=== PATIENT | female | born 1995 | race Caucasian/White ===

== ENCOUNTER 2021-02-20 14:12 | Emergency (ER) | payer OTHER, SELFPAY ==
[2021-02-20 14:38] VITALS: BP 120/81; PULSE 60; RESP 18; TEMP 36.8; O2SAT 99
--- NOTE | 2021-02-20 14:56 | ED.URI ---
HPI - URI/Sore Throat General Stated Complaint: vomiting Time Seen by Provider: 02/20/21 14:49 Source: patient and RN notes reviewed Mode of arrival: ambulatory Limitations: no limitations History of Present Illness HPI Narrative: 25-year-old female with history of type 1 diabetes presents with concern for 1 day history of sore throat, general malaise, body ache, chills, fever, cough, nausea, vomiting. Her is also sick. She has not been vaccinated for Covid. She denies shortness of breath, decreased urine output. She reports her blood sugars have been slightly elevated, she is continue to monitor them. MD elicited complaint: sore throat Related Data Home Medications Medication Instructions Recorded Confirmed desogestrel-ethinyl estradiol tablet 02/20/21 [Apri] insulin lispro 02/20/21 insulin lispro [Humalog U-100 02/20/21 Insulin] Allergies Allergy/AdvReac Type Severity Reaction Status Date / Time No Known Allergies Allergy Unverified 07/30/17 13:53 Review of Systems Review of Systems: Narrative: CONSTITUTIONAL: Reports malaise, chills, sweats, fever. EYES: Denies visual changes, redness, or discharge. ENT: Reports rhinorrhea, congestion. Denies sinus pain, otalgia. Denies reports sore throat. CARDIOVASCULAR: Denies chest pain, palpitations, or edema. RESPIRATORY: Reports cough. Denies dyspnea. GASTROINTESTINAL: Denies abdominal pain, diarrhea, bloody, or mucous stools.. Reports nausea, vomiting, SKIN: Denies rash or itching. MUSCULOSKELETAL: Reports myalgia. NEUROLOGIC: Reports headache. All systems reviewed & are unremarkable except as noted in HPI and below PMFSH Comments At time of signature, agree with nursing past medical, surgical, social and family history. There is no relevant family history pertinent to the presenting complaint Exam Narrative: Exam Narrative: GENERAL: Well-appearing, well-nourished, and in no acute distress. HEAD: Normocephalic EYES: PERRLA, conjunctivae clear ENT: Nares clear. Mucous membranes moist. TM pearly schmidt with dull light reflex bilaterally; no tragal tenderness. Oropharynx erythematous without lesions. Tonsils enlarged and without exudate, no drooling, no hoarseness, no trismus, uvula midline. NECK: Supple. No lymphadenopathy CHEST: Clear to auscultation, breath sounds equal. No wheezing, rhonchi, rales, or stridor. No respiratory distress, speaks in full sentences. HEART: Regular rate and rhythm. No murmur heard. SKIN: Warm, dry, no rash. NEURO: Alert and oriented x3. PSYCH: Normal mood and affect Course Course Emergency Course: Patient is aware of diagnosis, understands and agrees to treatment plan. Anticipatory guidance given. Patient agrees to follow-up as directed and is aware of reasons to seek care at the emergency department. Portions of this record may have been created with voice recognition software Vital Signs Vital signs: Vital Signs Temperature 98.3 F 02/20/21 14:38 Pulse Rate 60 02/20/21 14:38 Respiratory Rate 18 02/20/21 14:38 Blood Pressure 120/81 02/20/21 14:38 Pulse Oximetry 99 02/20/21 14:38 Temperature 98.3 F 02/20/21 14:38 Pulse Rate 60 02/20/21 14:38 Respiratory Rate 18 02/20/21 14:38 Blood Pressure 120/81 02/20/21 14:38 Pulse Oximetry 99 02/20/21 14:38 Reviewed. MDM - URI/Sore Throat MDM Narrative Medical decision making narrative: Differential diagnosis considered: Roberts virus, strep pharyngitis, allergic rhinitis, upper respiratory tract infection, sinusitis, rhinosinusitis, nasopharyngitis. viral pharyngitis, otitis media, otitis externa, pneumonia, bronchitis, viral cough syndrome, viral syndrome, and influenza. Exam findings show no acute concerns or changes; patient is non-toxic appearing and is in no distress. Patient is appropriate for outpatient treatment and follow-up. Lab Data Labs: Strep Screen Presumptive Negative
== END 2021-02-20 15:08 | disposition home or self-care (01) ==
PROVIDERS: Emergency Provider Nurse Practitioner
DX: U07.1 COVID-19 (principal); E10.9 Type 1 diabetes mellitus without complications
CPT/HCPCS: 87081; 87426; 87880; 99213; C9803; G0463

== ENCOUNTER 2021-03-01 14:18 | Emergency (ER) | payer OTHER, SELFPAY ==
[2021-03-01 14:28] VITALS: BP 113/84; PULSE 114; RESP 20; TEMP 36.1; O2SAT 98
--- NOTE | 2021-03-01 14:38 | ED.URI ---
HPI - URI/Sore Throat General Chief Complaint: Upper Respiratory Infection Stated Complaint: retested for covid Time Seen by Provider: 03/01/21 14:38 Source: patient Mode of arrival: ambulatory Limitations: no limitations History of Present Illness HPI Narrative: Mary Fernandez is a 25 yo female with a PMH of diabetes who comes to [facility] for retesting so she go back to work. She has not completed her 10-day quarantine although she states she feels much better and was seen on on the [address] [place] [address] for reported pneumonia for which she was only given a Z-Lobito and no other medication Related Data Home Medications Medication Instructions Recorded Confirmed desogestrel-ethinyl estradiol 1 tablet PO DAILY 02/20/21 03/01/21 [Apri] insulin lispro [Humalog U-100 10 - 20 unit SUBCUT TIDWM 02/20/21 03/01/21 Insulin] Allergies Allergy/AdvReac Type Severity Reaction Status Date / Time No Known Allergies Allergy Verified 03/01/21 14:33 Review of Systems Review of Systems: CONSTITUTIONAL: Denies fever, chills, sweats. EYES: Denies visual changes, redness, discharge. ENT: Denies rhinorrhea, congestion, sore throat, otalgia. CARDIOVASCULAR: Denies chest pain, palpitations, edema. RESPIRATORY: Denies dyspnea, wheezing, cough GASTROINTESTINAL: Denies abdominal pain, nausea, vomiting, diarrhea. GENITOURINARY: Denies dysuria, hematuria, abnormal discharge SKIN: Denies rash or itching. NEUROLOGIC: Denies numbness, or focal weakness. PSYCHIATRIC: Denies anxiety or depression. Wanting a negative Covid test fever PMFSH Past Medical History Medical History Diabetes mellitus Social History Social History Tobacco type: e-cigarettes/vaping Comments At time of signature, I agree with nursing past medical, surgical, social and family history. There is no relevant family history pertinent to the presenting complaint. Exam Narrative: GENERAL: This is a well-nourished, well-developed patient, in no distress. HEAD: normocephalic, atraumatic. EYES: Sclera clear/white. Vision is grossly intact. EARS: External ears normal, auditory canals clear and without drainage, TMs normal without perforation. Hearing grossly intact. NOSE: External nose normal without nasal discharge, nares without redness, no rhinorrhea. THROAT: Mucous membranes moist, NECK: Neck supple, non-tender CARDIOVASCULAR: Regular rate and rhythm without murmurs, gallops, or rubs. RESPIRATORY: Clear to auscultation. Breath sounds equal bilaterally. No wheezes, rales, or rhonchi. GASTROINTESTINAL: Abdomen soft, , SKIN: warm, intact with no suspicious lesions or rash, good texture and turgor. NEURO: awake, alert, and oriented to person, place and time. There were no obvious focal neurologic abnormalities. Steady gait EXTREMITIES: Normal range of motion. BACK: Nontender without deformity Course Course Emergency Course: Patient was seen and on the at the hospital for pneumonia She is here for negative Covid test which we do not perform but we will get her scheduled with outpatient testing on Thursday; patient given a copy of her 02/20+ past Vital Signs Vital signs: Vital Signs Temperature 97.0 F L 03/01/21 14:28 Pulse Rate 114 H 03/01/21 14:28 Respiratory Rate 20 03/01/21 14:28 Blood Pressure 113/84 03/01/21 14:28 Pulse Oximetry 98 03/01/21 14:28 Temperature 97.0 F L 03/01/21 14:28 Pulse Rate 114 H 03/01/21 14:28 Respiratory Rate 20 03/01/21 14:28 Blood Pressure 113/84 03/01/21 14:28 Pulse Oximetry 98 03/01/21 14:28 MDM - URI/Sore Throat Differential Diagnosis Differential diagnosis: Likely upper respiratory infection, sinusitis, viral infection, bronchitis, pharyngitis and other Critical Care Time Critical Care Time Critical Care Time: No Discharge Plan Discharge Clinical I
== END 2021-03-01 15:05 | disposition home or self-care (01) ==
PROVIDERS: Emergency Provider Nurse Practitioner
DX: U07.1 COVID-19 (principal); F17.200 Nicotine dependence, unspecified, uncomplicated; E10.9 Type 1 diabetes mellitus without complications
CPT/HCPCS: 99211; G0463

== ENCOUNTER 2021-11-27 16:10 | Emergency (ER) | payer OTHER, SELFPAY ==
[2021-11-27 16:36] VITALS: BP 121/77; PULSE 106; RESP 18; TEMP 36.4; O2SAT 99
--- NOTE | 2021-11-27 16:37 | ED.NAVMDI ---
HPI - Nausea/Vomiting/Diarrhea General Chief complaint: Nausea/Vomiting/Diarrhea Stated complaint: Diarrhea,Upset Stomach, Lt Lower Back Pain Time Seen by Provider: 11/27/21 16:37 Source: patient Mode of arrival: ambulatory Limitations: no limitations History of Present Illness HPI Narrative: Mary Fernandez is a 26 yo female with a PMH of T1 DM, [facility] with complaints of abdominal cramping for couple of weeks she is having bowel movements for 5 times a day and has lower back left-sided pain no nausea vomiting no urinary tract symptoms, no fever. Patient has a insulin pump and glucometer states her blood sugar runs between 60 and 200. No nausea vomiting, symptoms occur after eating Related Data Home Medications Medication Instructions Recorded Confirmed insulin lispro [Humalog U-100 10 - 20 unit SUBCUT TIDWM 02/20/21 11/27/21 Insulin] blood sugar diagnostic [OneTouch 11/27/21 11/27/21 Verio test strips] blood-glucose sensor [Dexcom G6 11/27/21 11/27/21 Sensor] blood-glucose transmitter [Dexcom 11/27/21 11/27/21 G6 Transmitter] Allergies Allergy/AdvReac Type Severity Reaction Status Date / Time No Known Allergies Allergy Verified 11/27/21 16:50 Review of Systems Review of Systems: CONSTITUTIONAL: Denies fever, chills, sweats. EYES: Denies visual changes, redness, discharge. ENT: Denies rhinorrhea, congestion, sore throat, otalgia. CARDIOVASCULAR: Denies chest pain, palpitations, edema. RESPIRATORY: Denies dyspnea, wheezing, cough GASTROINTESTINAL: Denies abdominal pain, nausea, vomiting, diarrhea. Is having 4-5 stools a day with cramping occur usually after eating GENITOURINARY: Denies dysuria, hematuria, abnormal discharge SKIN: Denies rash or itching. NEUROLOGIC: Denies numbness, or focal weakness. PSYCHIATRIC: Denies anxiety or depression. COUNTS INCLUDE 234 BEDS AT THE [facility] Past Medical History Medical History Type 1 diabetes Social History Social History Tobacco type: e-cigarettes/vaping Comments At time of signature, I agree with nursing past medical, surgical, social and family history. There is no relevant family history pertinent to the presenting complaint. Exam Narrative: GENERAL: This is a well-nourished, well-developed patient, in mild distress. HEAD: normocephalic, atraumatic. EYES: Sclera clear/white. Vision is grossly intact. EARS: External ears normal, . Hearing grossly intact. NOSE: External nose normal without nasal discharge, nares without redness, no rhinorrhea. THROAT: Mucous membranes moist, NECK: Neck supple, non-tender CARDIOVASCULAR: Tachycardia rate and rhythm without murmurs, gallops, or rubs. RESPIRATORY: Clear to auscultation. Breath sounds equal bilaterally. No wheezes, rales, or rhonchi. GASTROINTESTINAL: Abdomen soft, feels pressure but denies tenderness, bowel sounds normoactive SKIN: warm, intact with no suspicious lesions or rash, good texture and turgor. NEURO: awake, alert, and oriented to person, place and time. There were no obvious focal neurologic abnormalities. Steady gait EXTREMITIES: Normal range of motion. BACK: Nontender without deformity Course Course Emergency Course: Patient has been having cramping and 4-5 stools a day for the last couple of weeks denies nausea vomiting are diarrhea per se the stooling occurs after she eats about 15 to 30 minutes later sometimes her symptoms improve after a bowel movement. She is a type I diabetic and on a insulin pump does have a primary care physician Discussed possibility of developing IBS or colitis and needs blood work patient to start on a bland diet and follow-up with fat pressroom worker or primary care physician in the morning encouraged to drink fluids Level of Care: Express Care Visit Vital Signs Vital signs: Vital Signs Temperature 97.5 F L 11/27/21 16:36 Pulse Rate 106 H 11/27/21 16:36 Respi
== END 2021-11-27 17:53 | disposition home or self-care (01) ==
PROVIDERS: Emergency Provider Nurse Practitioner; PCP Orthopaedic Surgery
DX: R10.9 Unspecified abdominal pain (principal); R19.4 Change in bowel habit; E10.9 Type 1 diabetes mellitus without complications; F17.200 Nicotine dependence, unspecified, uncomplicated
CPT/HCPCS: 99213; G0463

== ENCOUNTER 2022-12-01 12:18 | Emergency (ER) | payer MEDICARE, MEDICAID, SELFPAY ==
--- NOTE | 2022-12-01 12:23 | ED.URI ---
HPI - URI/Sore Throat General Chief Complaint: Upper Respiratory Infection Stated Complaint: Sore Throat Time Seen by Provider: 12/01/22 12:23 Source: patient and RN notes reviewed History of Present Illness HPI Narrative: Patient is a 27-year-old female who presents to urgent care with complaints of a sore throat that started yesterday. Patient has been taking Tylenol. Denies any other upper respiratory complaints, fever, nausea or vomiting. No acute distress noted. Patient aware of the plan Of care. Some parts of this dictation were generated by voice recognition software and may contain typographical and/or grammatical inaccuracies. Related Data Home Medications Medication Instructions Recorded Confirmed insulin lispro 100 unit/mL 10 - 20 unit subcut TIDWM 02/20/21 11/27/21 subcutaneous solution (Humalog U-100 Insulin) blood sugar diagnostic (OneTouch 11/27/21 11/27/21 Verio test strips) blood-glucose sensor (Dexcom G6 11/27/21 11/27/21 Sensor device) blood-glucose transmitter (Dexcom 11/27/21 11/27/21 G6 Transmitter device) Allergies Allergy/AdvReac Type Severity Reaction Status Date / Time No Known Allergies Allergy Verified 11/27/21 16:50 Review of Systems Review of Systems: CONSTITUTIONAL: Denies fever, chills, or sweats. EYES: Denies visual changes, redness, or discharge. ENT: Denies rhinorrhea, congestion, otalgia. Reports of sore throat CARDIOVASCULAR: Denies chest pain, palpitations, or edema. RESPIRATORY: Denies cough or dyspnea. GASTROINTESTINAL: Denies abdominal pain, nausea, vomiting, or diarrhea. GENITOURINARY: Denies dysuria or hematuria. SKIN: Denies rash or itching. MUSCULOSKELETAL: Denies back pain, joint pain, or myalgia. NEUROLOGIC: Denies headache, numbness, or weakness. All other systems reviewed are negative, except as documented in HPI. [facility] Past Medical History Medical History Type 1 diabetes Social History Social History Tobacco type: e-cigarettes/vaping Comments At the time of my signature, I reviewed and agree with the nursing past medical, surgical, social, and family history. There is no relevant family history pertinent to the patient complaint. Exam Narrative: GENERAL: This is a well-nourished, well-developed patient, in no apparent distress. HEAD: normocephalic, atraumatic. EYES: PERRL. Sclera clear/white. Vision is grossly intact. EARS: External ears normal, auditory canals clear and without drainage, TMs normal without perforation. Hearing grossly intact. NOSE: External nose normal with no obvious nasal discharge, nares without redness, no rhinorrhea. THROAT: Mucous membranes moist, mild erythema to posterior pharynx with moderate postnasal drainage NECK: Neck supple RESPIRATORY: Clear to auscultation. Breath sounds equal bilaterally. No wheezes, rales, or rhonchi. SKIN: warm, intact with no suspicious lesions or rash, good texture and turgor. NEURO: awake, alert, and oriented to person, place and time. There were no obvious focal neurologic abnormalities. EXTREMITIES: No clubbing, cyanosis, or edema. Course Course Level of Care: Express Care Visit Vital Signs Vital signs: Vital Signs Temperature 97.3 F L 12/01/22 12:34 Pulse Rate 106 H 12/01/22 12:34 Respiratory Rate 16 12/01/22 12:34 Blood Pressure 118/70 12/01/22 12:34 Pulse Oximetry 100 12/01/22 12:34 Oxygen Delivery Room Air 12/01/22 12:34 Temperature 97.3 F L 12/01/22 12:34 Pulse Rate 106 H 12/01/22 12:34 Respiratory Rate 16 12/01/22 12:34 Blood Pressure 118/70 12/01/22 12:34 Pulse Oximetry 100 12/01/22 12:34 Oxygen Delivery Room Air 12/01/22 12:34 Reviewed MDM - URI/Sore Throat MDM Narrative Medical decision making narrative: Reviewed lab results with the patient. She is aware that strep swab was negative.
[2022-12-01 12:34] VITALS: BP 118/70; PULSE 106; RESP 16; TEMP 36.3; O2SAT 100
== END 2022-12-01 12:52 | disposition home or self-care (01) ==
PROVIDERS: Emergency Provider Nurse Practitioner Family; PCP Family Medicine
DX: J02.9 Acute pharyngitis, unspecified (principal); E10.9 Type 1 diabetes mellitus without complications; F17.290 Nicotine dependence, other tobacco product, uncomplicated
CPT/HCPCS: 87081; 87880; 99213; G0463

== ENCOUNTER 2023-05-14 15:15 | Emergency (ER) | payer MEDICARE, MEDICAID, SELFPAY ==
[2023-05-14 15:26] VITALS: BP 119/68; PULSE 102; RESP 20; TEMP 36.8; O2SAT 96
--- NOTE | 2023-05-14 15:40 | ED.SKABFB ---
HPI - Skin/Abscess/Foreign Bdy General Chief complaint: Skin/Abscess/Foreign Body Stated complaint: poss infection pump sight left arm Source: patient and RN notes reviewed History of Present Illness HPI narrative: 28-year-old presents urgent care with complaints of redness and tenderness to left upper arm. Patient states 2 days ago she placed her insulin pump in this area and 24 hours later removed it b/c it was tender. Denies any fevers, chills vomiting, chest pain, or shortness of breath. Related Data Home Medications Medication Instructions Recorded Confirmed blood sugar diagnostic (OneTouch 11/27/21 11/27/21 Verio test strips) blood-glucose sensor (Dexcom G6 11/27/21 11/27/21 Sensor device) blood-glucose transmitter (Dexcom 11/27/21 11/27/21 G6 Transmitter device) desogestrel 0.15 mg-ethinyl 1 tablet PO DAILY 05/14/23 05/14/23 estradiol 0.03 mg tablet (Apri) Allergies Allergy/AdvReac Type Severity Reaction Status Date / Time No Known Allergies Allergy Verified 11/27/21 16:50 Review of Systems Review of Systems: Pertinent positives and pertinent negatives per HPI. [facility] Past Medical History Medical History Type 1 diabetes Social History Social History Tobacco type: e-cigarettes/vaping Comments At the time of my signature, I reviewed and agree with the nursing past medical, surgical, social, and family history. There is no relevant family history pertinent to the patient complaint. Exam Narrative: GENERAL: This is a well-nourished, well-developed patient, in no apparent distress. HEAD: normocephalic, atraumatic. EYES: Sclera clear/white. Vision is grossly intact. EARS: External ears normal, auditory canals clear and without drainage. Hearing grossly intact. NOSE: External nose normal with no obvious nasal discharge, nares without redness, no rhinorrhea. THROAT: Mucous membranes moist, posterior pharynx clear. NECK: Neck supple, non-tender without lymphadenopathy, masses or thyromegaly. CARDIOVASCULAR: Regular rate and rhythm without murmurs, gallops, or rubs. RESPIRATORY: Clear to auscultation. Breath sounds equal bilaterally. No wheezes, rales, or rhonchi. GASTROINTESTINAL: Abdomen soft, non-tender, nondistended. Bowel sounds are active. No hepato-splenomegaly, or palpable masses. No guarding. SKIN: 5 cm x 5cm area of erythema to left upper arm with centralized pustule. no area of induration or drainage noted. NEURO: awake, alert, and oriented to person, place and time. There were no obvious focal neurologic abnormalities. EXTREMITIES: No clubbing, cyanosis, or edema. No joint tenderness, effusion, or edema noted. BACK: Nontender without deformity or crepitus. No flank tenderness. Course Course Level of Care: Express Care Visit Vital Signs Vital signs: Vital Signs Temperature 98.3 F 05/14/23 15:26 Pulse Rate 102 H 05/14/23 15:26 Respiratory Rate 20 05/14/23 15:26 Blood Pressure 119/68 05/14/23 15:26 Pulse Oximetry 96 05/14/23 15:26 Oxygen Delivery Room Air 05/14/23 15:26 Temperature 98.3 F 05/14/23 15:26 Pulse Rate 102 H 05/14/23 15:26 Respiratory Rate 20 05/14/23 15:26 Blood Pressure 119/68 05/14/23 15:26 Pulse Oximetry 96 05/14/23 15:26 Oxygen Delivery Room Air 05/14/23 15:26 Reviewed MDM - Skin/Abscess/Foreign Bdy MDM Narrative Medical decision making narrative: Clean with soap and water only; Avoid using alcohol and peroxide. Elevate the affected area if possible Alternate Tylenol/ibuprofen for as needed for pain Acetaminophen(Tylenol) 650-1000mg every 4-6hours with max of 4000mg/day. Nonsteroidal anti-inflammatory agent (NSAIDs-ibuprofen): 400mg every 4-6hours with max 2400mg/day Take antibiotic until it's gone. Please schedule a follow up visit with your personal physician for further evaluation and treatment
== END 2023-05-14 15:52 | disposition home or self-care (01) ==
PROVIDERS: Emergency Provider Nurse Practitioner Family; PCP Family Medicine
DX: L03.114 Cellulitis of left upper limb (principal); E10.9 Type 1 diabetes mellitus without complications; F17.290 Nicotine dependence, other tobacco product, uncomplicated
CPT/HCPCS: 99213; G0463

== ENCOUNTER 2023-06-17 12:06 | Emergency (ER) | payer MEDICARE, MEDICAID, SELFPAY ==
--- NOTE | ~2023-06-17 | XR_ITS ---
EXAMINATION: XR chest 2V DATE: 06/17/2023 12:30 INDICATION: Shortness of breath. Decreased breath sounds. TECHNIQUE: Frontal and lateral views of the chest were obtained. COMPARISON: Chest single view 02/21/2021 FINDINGS: There is no pneumonia, pleural effusion, or pneumothorax. The heart size is normal. IMPRESSION: 1. No acute cardiopulmonary disease. Reviewed, dictated and finalized at location A. DISTRIBUTOR
[2023-06-17 12:09] VITALS: BP 125/74; PULSE 100; RESP 18; TEMP 36.4; O2SAT 98
--- NOTE | 2023-06-17 12:16 | ED.URI ---
HPI - URI/Sore Throat General Chief Complaint: Upper Respiratory Infection Stated Complaint: Chest Pain Time Seen by Provider: 06/17/23 12:20 Source: patient, RN notes reviewed and old records reviewed Mode of arrival: ambulatory Limitations: no limitations History of Present Illness HPI Narrative: 28 year old female who presents to express care with complaints of having some chest discomfort and feels like it is hard to take a deep breath and has been coughing up yellow mucous since this morning, states little wheezing noted.. Patient reports discomfort is across her chest with no nausea, diaphoresis or any radiation of her discomfort.Patient reports some head congestion and headache.Patient has even nonlabored respirations with no tachypnea or retractions, SAO2 98% on room air. Patient voices past history of pneumonia after having COVID. MD elicited complaint: cough (productive), nasal congestion and other (headache) Pertinent past history: pneumonia Onset (ago): hour(s) (this morning) Pain scale (0-10): 3 Description of mucous: yellow Able to tolerate fluids by mouth: Yes Treatments prior to arrival: none Related Data Home Medications Medication Instructions Recorded Confirmed blood sugar diagnostic (OneTouch 11/27/21 11/27/21 Verio test strips) blood-glucose sensor (Dexcom G6 11/27/21 11/27/21 Sensor device) blood-glucose transmitter (Dexcom 11/27/21 11/27/21 G6 Transmitter device) desogestrel 0.15 mg-ethinyl 1 tablet PO DAILY 05/14/23 06/17/23 estradiol 0.03 mg tablet (Apri) insulin lispro 100 unit/mL See Rx Instructions .Route .COMPLEX 06/17/23 06/17/23 subcutaneous solution Allergies Allergy/AdvReac Type Severity Reaction Status Date / Time No Known Allergies Allergy Verified 06/17/23 12:24 Review of Systems Review of Systems: CONSTITUTIONAL: Denies fever, chills, or sweats. EYES: Denies visual changes, redness, or discharge. ENT: Denies rhinorrhea, congestion, sore throat, or otalgia. CARDIOVASCULAR: Reports chest pain and some difficulty taking deep breaths, no palpitations, or edema. RESPIRATORY: Reports cough and dyspnea. GASTROINTESTINAL: Denies abdominal pain, nausea, vomiting, or diarrhea. GENITOURINARY: Denies dysuria or hematuria. SKIN: Denies rash or itching. MUSCULOSKELETAL: Denies back pain, joint pain, or myalgia. NEUROLOGIC: Denies headache, numbness, or weakness. PSYCHIATRIC: Denies anxiety or depression. All systems reviewed & are unremarkable except as noted in HPI and below PMFSH Past Medical History Medical History (Updated 06/18/23 @ 09:41 by Eboni Yeboah NP) COVID-19 2020 GERD (gastroesophageal reflux disease) Pneumonia Type 1 diabetes Surgical History Surgical History (Updated 06/18/23 @ 09:42 by Eboni Yeboah NP) History of placement of ear tubes History of tonsillectomy and adenoidectomy Social History Social History (Updated 06/18/23 @ 09:43 by Eboni Yeboah NP) Tobacco type: e-cigarettes/vaping Alcohol intake: unknown Substance use: unknown Gender identity (if verbalized by the patient): Female Comments At time of signature, agree with nursing past medical, surgical, social and family history. There is no relevant family history pertinent to the presenting complaint Exam Narrative: GENERAL: Well-appearing, well-nourished, and in no acute distress. HEAD: Normocephalic, atraumatic. EYES: PERRLA and EOMI. ENT: Nares clear, no rhinorrhea or epistaxis. Mucous membranes moist.RM's normal, throat pink no swelling tonsils absent NECK: Supple. no lymphadenopathy CHEST: Decreased to auscultation. No respiratory distress. productive cough, reports chest pain tightness with cough, SAO2 98% no tachypnea or any retractions. HEART: Regular rate and rhythm. No murmur heard. Normal peripheral pulses. ABDOMEN: Soft, nontender, nondistended, normal active bowel sounds. EXTREMITIES: Normal range of motion. No edema. SKIN: Warm, dry, no
== END 2023-06-17 13:10 | disposition home or self-care (01) ==
PROVIDERS: Emergency Provider Registered Nurse; PCP Family Medicine
DX: J06.9 Acute upper respiratory infection, unspecified (principal); R05.1 Acute cough; E10.9 Type 1 diabetes mellitus without complications; F17.290 Nicotine dependence, other tobacco product, uncomplicated; Z79.4 Long term (current) use of insulin; Z79.899 Other long term (current) drug therapy
CPT/HCPCS: 71046; 99213; G0463

== ENCOUNTER 2023-11-29 10:34 | Emergency (ER) | payer MEDICARE, OTHER, MEDICAID, SELFPAY ==
[2023-11-29 10:40] VITALS: BP 129/74; PULSE 118; RESP 16; TEMP 36.6; O2SAT 100
--- NOTE | 2023-11-29 10:51 | ED.EYEPROB ---
HPI - Eye Problem General Chief complaint: Eye Problems Stated complaint: Eye Problem History of Present Illness HPI Narrative: tender area to top of eyelid on both eyes. no change in make up patient states she gets these often and they usually go away. this time they are painful and has tried warm compresses with no relief. Patient is 16 weeks with no related problems no vaginal discharge no vaginal bleeding no abdominal pain no pelvic pain no urinary problems normal movement Related Data Home Medications Medication Instructions Recorded Confirmed blood sugar diagnostic (OneTouch 11/27/21 11/27/21 Verio test strips) blood-glucose sensor (Dexcom G6 11/27/21 11/27/21 Sensor device) blood-glucose transmitter (Dexcom 11/27/21 11/27/21 G6 Transmitter device) Daily 11/29/23 aspirin 81 mg tablet,delayed mg 11/29/23 11/29/23 release insulin lispro 100 unit/mL 11/29/23 subcutaneous solution Allergies Allergy/AdvReac Type Severity Reaction Status Date / Time No Known Allergies Allergy Verified 06/17/23 12:24 Review of Systems Review of Systems: CONSTITUTIONAL: Denies fever, chills, or sweats. EYES: Denies visual changes, redness, or discharge. ENT: Denies rhinorrhea, congestion, sore throat, or otalgia. CARDIOVASCULAR: Denies chest pain, palpitations, or edema. RESPIRATORY: Denies cough or dyspnea. GASTROINTESTINAL: Denies abdominal pain, nausea, vomiting, or diarrhea. GENITOURINARY: Denies dysuria or hematuria. SKIN: Denies rash or itching. MUSCULOSKELETAL: Denies back pain, joint pain, or myalgia. NEUROLOGIC: Denies headache, numbness, or weakness. PSYCHIATRIC: Denies anxiety or depression. [facility] Past Medical History Medical History (Updated 11/29/23 @ 10:56 by GRACE Bruno) COVID-19 2020 GERD (gastroesophageal reflux disease) Pneumonia Type 1 diabetes Surgical History Surgical History (Updated 06/18/23 @ 09:42 by Eboni Yeboah NP) History of placement of ear tubes History of tonsillectomy and adenoidectomy Social History Social History (Updated 06/18/23 @ 09:43 by Eboni Yeboah NP) Tobacco type: e-cigarettes/vaping Alcohol intake: unknown Substance use: unknown Gender identity (if verbalized by the patient): Female Comments At time of signature, agree with nursing past medical, surgical, social and family history. There is no relevant family history pertinent to the presenting complaint Exam Narrative: GENERAL: Well-appearing, well-nourished, and in no acute distress. HEAD: Normocephalic, atraumatic. EYES: PERRLA and EOMI. no redness to the eye, no drainage, no blurred vision. no pain of the eye with movement. swelling and redness to the edge of the eyelid. believes it is a sty.to both upper eyelids. hordeolum present, no drainable abscess, mild eyelid redness and swelling. no concern for michelle-orbital cellulitis or orbital cellulitis ENT: Nares clear, no rhinorrhea or epistaxis. Mucous membranes moist. NECK: Supple. CHEST: Clear to auscultation. No respiratory distress. HEART: Regular rate and rhythm. No murmur heard. Normal peripheral pulses. ABDOMEN: Soft, nontender, nondistended, normal active bowel sounds. EXTREMITIES: Normal range of motion. No edema. SKIN: Warm, dry, no rash. NEURO: No focal deficits. Alert and oriented x3. Ogilvie Coma Scale Eye Opening: Spontaneous 4 Praneeth Coma Scale Motor: Obeys Commands 6 Praneeth Coma Scale Verbal: Oriented 5 Ogilvie Coma Scale Total 15 Course Course Level of Care: Express Care Visit Vital Signs Vital signs: Vital Signs Temperature 36.6 C 11/29/23 10:40 Pulse Rate 118 H 11/29/23 10:40 Respiratory Rate 16 11/29/23 10:40 Blood Pressure 129/74 11/29/23 10:40 Pulse Oximetry 100 11/29/23 10:40 Oxygen Delivery Room Air 11/29/23 10:40 Temperature 36.6 C 11/29/23 10:40 Pulse Rate 118 H 11/29/23 10:40 Respiratory Rate
== END 2023-11-29 10:58 | disposition home or self-care (01) ==
PROVIDERS: Emergency Provider Nurse Practitioner Family; PCP Family Medicine
DX: O99.891 Other specified diseases and conditions complicating pregnancy (principal); H00.014 Hordeolum externum left upper eyelid; H00.011 Hordeolum externum right upper eyelid; O99.332 Smoking (tobacco) complicating pregnancy, second trimester; F17.290 Nicotine dependence, other tobacco product, uncomplicated; O99.612 Diseases of the digestive system complicating pregnancy, second trimester; K21.9 Gastro-esophageal reflux disease without esophagitis; O99.282 Endocrine, nutritional and metabolic diseases complicating pregnancy, second trimester; E10.9 Type 1 diabetes mellitus without complications; Z3A.16 16 weeks gestation of pregnancy; Z86.16 Personal history of COVID-19
CPT/HCPCS: 99213; G0463

== ENCOUNTER 2024-03-21 12:24 | Emergency (ER) | payer MEDICARE, MEDICAID, SELFPAY ==
[2024-03-21 12:35] VITALS: BP 114/60; PULSE 106; RESP 16; TEMP 36.6; O2SAT 99
--- NOTE | 2024-03-21 12:39 | ED.SKABFB ---
HPI - Skin/Abscess/Foreign Bdy General Chief complaint: Skin/Abscess/Foreign Body Stated complaint: Skin Sore Time Seen by Provider: 03/21/24 12:39 Source: patient Mode of arrival: ambulatory Limitations: no limitations History of Present Illness HPI narrative: 29-year-old female with history of type 1 diabetes presents with complaint of redness and drainage from left great toe for 2 days. 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 Unable to feel pain to left great toe. Patient reports blood sugars have been controlled. Afebrile. Ambulatory with steady gait. All systems reviewed and negative except as noted above. Related Data Home Medications Medication Instructions Recorded Confirmed blood sugar diagnostic (OneTouch 11/27/21 11/27/21 Verio test strips) blood-glucose sensor (Dexcom G6 11/27/21 11/27/21 Sensor device) blood-glucose transmitter (Dexcom 11/27/21 11/27/21 G6 Transmitter device) aspirin 81 mg tablet,delayed 81 mg PO DAILY 11/29/23 03/21/24 release insulin lispro 100 unit/mL See Rx Instructions .Route .COMPLEX 11/29/23 03/21/24 subcutaneous solution magnesium oxide 500 mg PO DAILY 03/21/24 03/21/24 vits no.126-ferrous fum tablet 03/21/24 28 mg iron-folic acid 800 mcg tablet (Classic ) sennosides 8.6 mg tablet (senna) mg 03/21/24 Allergies Allergy/AdvReac Type Severity Reaction Status Date / Time No Known Allergies Allergy Verified 06/17/23 12:24 Review of Systems Review of Systems: CONSTITUTIONAL: Denies fever, chills, or sweats. EYES: Denies visual changes, redness, or discharge. ENT: Denies rhinorrhea, congestion, sore throat, or otalgia. CARDIOVASCULAR: Denies chest pain, palpitations, or edema. RESPIRATORY: Denies cough or dyspnea. GASTROINTESTINAL: Denies abdominal pain, nausea, vomiting, or diarrhea. GENITOURINARY: Denies dysuria or hematuria. SKIN: Denies rash or itching. Reports redness, swelling, drainage to left great toe. MUSCULOSKELETAL: Denies back pain, joint pain, or myalgia. NEUROLOGIC: Denies headache, numbness, or weakness. PSYCHIATRIC: Denies anxiety or depression. All other systems reviewed are negative, except as documented in HPI. [facility] Past Medical History Medical History (Updated 03/21/24 @ 12:56 by Alysia Shaffer NP) COVID-19 2020 GERD (gastroesophageal reflux disease) Pneumonia Type 1 diabetes Surgical History Surgical History (Updated 06/18/23 @ 09:42 by Eboni Yeboah NP) History of placement of ear tubes History of tonsillectomy and adenoidectomy Social History Social History (Updated 06/18/23 @ 09:43 by Eboni Yeboah NP) Tobacco type: e-cigarettes/vaping Alcohol intake: unknown Substance use: unknown Gender identity (if verbalized by the patient): Female Comments At time of signature, agree with nursing past medical, surgical, social and family history. There is no relevant family history pertinent to the presenting complaint. Exam Narrative: GENERAL: This is a well-nourished, well-developed patient, in no apparent distress. HEAD: normocephalic, atraumatic. EYES: PERRL. Sclera clear/white. Vision is grossly intact. EARS: External ears normal NOSE: External nose normal NECK: Neck supple, non-tender without lymphadenopathy, masses or thyromegaly. CARDIOVASCULAR: Regular rate and rhythm without murmurs, gallops, or rubs. RESPIRATORY: Clear to auscultation. Breath sounds equal bilaterally. No wheezes, rales, or rhonchi. SKIN: warm, Dry, intact with no suspicious lesions or rash, good texture and turgor. Redness, warmth to medial aspect of left great toe with swelling. No drainage noted at this time. Toenail possibly ingrown. NEURO: awake, alert, and oriented to person, place and time. There were no obvious focal neurologic abnormalities. EXTREMITIES: No joint tenderness, effusion, or edema noted. Course Course Level of Care: William Doss
== END 2024-03-21 13:00 | disposition home or self-care (01) ==
PROVIDERS: Emergency Provider Nurse Practitioner Family; PCP Family Medicine
DX: L60.0 Ingrowing nail (principal); K21.9 Gastro-esophageal reflux disease without esophagitis; E10.9 Type 1 diabetes mellitus without complications; F17.290 Nicotine dependence, other tobacco product, uncomplicated; Z86.16 Personal history of COVID-19; Z79.82 Long term (current) use of aspirin
CPT/HCPCS: 99213; G0463

== ENCOUNTER 2024-10-23 09:16 | Emergency (ER) | payer OTHER, SELFPAY ==
--- OUTSIDE RECORDS SUMMARY | 2024-10-23 09:19 | XMS_ITS | Encounter Summary ---
Author Organization [facility] Address [address] [place] [address] Phone Care Team Providers Care Circulation Analyst Name Role Phone Moody Beltran MD Primary Care Provider [phone] Jai Naidu MD Unavailable [phone] Rachel Sommer MD Unavailable Reason for Visit * Reason Comments Medication Refill Encounter Details Date Type Department Care Team (Late st Contact Info) Description 04/25/2023 Refill [facility] - Endocrinology [facility]3] [address] [place] [address] Rachel Sommer MD [address] [address] Medication Refill Social History Tobacco Use Types Packs/Day Years Used Date Smoking Tobacco: Never Smokeless Tobacco: Never Alcohol Use Standard Drinks/Week Comments Yes 4 (1 standard drink = 0.6 oz pur e alcohol) once every few weeks Sexually Active Control Partners Comments Yes Oral Contraceptive Male Comments No Sex and Gender Information Value Date Recorded Sex Assigned at Not on file Legal Sex Female 7:44 PM CDT Gender Identity Not on file Sexual Orientation Not on file COVID-19 Exposure Response Date Recorded In the last 10 days, have yo u been in contact with someone who was confirmed or suspected to have Coronavirus/COVID-19? No / Unsure 04/03/2023 2:10 PM CDT documented as of this encounter Miscellaneous Notes * Telephone Encounter - Yarelis Garcia RN - 04/27/2023 8:20 AM CDT Requested Prescriptions Pending Prescriptions Disp Refills ??? OneTouch Verio Strip [Pharmacy Med Name: ONE TOUCH VERIO TEST STRIP] 300 Strip 5 Sig: TEST BLOOD GLUCOSE 4X DAILY. Next appt: 07/06/2023 documented in this encounter Plan of Treatment Upcoming Encounters Date Type Department Care Team (Latest Contact Info) Description 11/16/2024 11:15 AM CDT [facility] [address] [place] [address] Val Pemberton, [facility] [address] [place] [address] Discharge Disposition: Discharged to home or Selfcare 12/07/2024 11:30 AM CDT Office Visit [facility] - Endocrinology [facility]3] [address] [place] [address] Rachel Sommer MD [address] [id number] documented as of this encounter Visit Diagnoses Not on filedocumented in this encounter Care Teams Circulation Analyst Relationship Specialty Start Date End Date Moody Beltran MD [address] [facility] [address] [place] [address] PCP - General Family Medicine 02/13/21 Jai Naidu MD [address] [id number] Consulting Physician General Surgery 10/11/21 Rachel Sommer MD [address] [address] Consulting Physician Endocrinology 01/30/22 documented as of this encounter
--- OUTSIDE RECORDS SUMMARY | 2024-10-23 09:19 | XMS_ITS | Clinical Summary ---
Author Organization [address] Address [address] [place] [address] Care Team Providers Care Security Services Specialist Name Role Phone Moody Beltran MD Primary Care Provider [phone] Allergies Active Allergy Reactions Criticality Noted Date Comments Casein Stomach upset Low 01/12/2018 Lactose Diarrhea Low 06/01/2019 Medications blood glucose diagnostic (glucose blood) strip 1 each by Not Applicable route 9 Active LANCETS MISC 0 Active Dexcom G7 [employer] Tick[employer] misc 4 Active glucagon 1 mg kit Inject 1 mL (1 mg total) into the muscle as instructed as needed (hypoglycemia) 1 kit 1 4 Active insulin glargine 100 unit/mL (3 mL) pen for injection Inject 44 units under the skin at bedtime. For use when her pump stops working. 15 mL 3 4 Active pen needle, diabetic 33 gauge x 5/32 needle 5 INJECTIONS DAILY DIRECTED 200 each 2 4 Active insulin lispro (HumaLOG, ADMELOG) 100 unit/mL vial for injection For use in her insulin pump, She uses 150 units per day of insulin in her pump. 50 mL 4 4 Active Additional Information Patient taking differently: subcutaneous, For use in her insulin pump, She uses 150 units per day of insulin in her pump., Informant: Self, Reported on 09/13/2024 Dexcom G7 Sensor device Use with the Dexcom G7 escalator constructor to monitor blood glucose values continuously. Change every 10 days. 4 each 3 10/01/202 4 Active insulin syringe-needle U-100 (BD Insulin Syringe Ultra-Fine) 0.5 mL 31 gauge x 5/16 syringe Use to administer meal time insulin when pump is malfunctioning. 3 times per day. 100 each 3 4 Active norethindrone (MICRONOR) 0.35 mg tabletIndications : Contraception Take 1 tablet (0.35 mg total) by mouth daily 84 tablet 3 4 025 Active sertraline (ZOLOFT) 100 mg tablet Take 1.5 tablets (150 mg total) by mouth daily 45 tablet 5 4 025 Active Additional Information Patient taking differently: 200 mgoralEvery morning, Indications: Anxiety with Depression, Informant: Self, Reported on 09/13/2024 hydrOXYzine (ATARAX) 25 mg tabletIndications :anxiety Take 1 tablet (25 mg total) by mouth 3 (three) times a day as needed for itching Active acetaminophen (TYLENOL) 500 mg tabletIndications :Pain Take 2 tablets (1,000 mg total) by mouth every 6 (six) hours 30 tablet 5 Active ibuprofen (ADVIL,MOTRIN) 600 mg tabletIndications :Cramps Take 1 tablet (600 mg total) by mouth every 6 (six) hours 30 tablet 5 Active polyethylene glycol (MIRALAX) 17 gram/dose bulk powderIndications :constipation Take 17 g by mouth daily 298 g 5 Active oxyCODONE (ROXICODONE) 5 mg immediate release tabletIndications :Pain Take 1 tablet (5 mg total) by mouth every 4 (four) hours as needed for pain 10 tablet 5 Active oxyCODONE (ROXICODONE) 5 mg immediate release tabletIndications :Pain Take 1 tablet (5 mg total) by mouth every 4 (four) hours as needed for pain 5 tablet 5 Active naloxone (NARCAN) 4 mg/actuation spray,non-aerosol Administer 1 spray into affected nostril(s) as needed for opioid reversal or respiratory depression Call 911. Administer a single spray in one nostril. Repeat every 3 minutes as needed if no or minimal response. 1 each 2 5 Active Active Problems Problem Noted Date Diagnosed Date Moderate episode of recurrent major depressive d isorder 08/08/2024 Type 1 diabetes mellitus with hyperglycemia 01/2025 Unwanted fertility 07/30/2024 Overview (07/30/2024): -The patient was appropriately counseled that the risks of bilateral tubal ligation include regret, bleeding, infection, injury to surrounding organs and risk of procedure failure. Alternative methods of contraception were discussed including LARC. The patient desires to proceed with bilateral salpingectomy. - Given history of adhesive disease, patient was consented to vNOTES approach as well as laparoscopic bilateral salpingectomy. - Blood, procedure, and [place] Medicaid consents signed. Prep for case submitted Admission for sterilization 07/28/2024 Pelvic adhesions 07/28/2024 Delivery of by section 2023 Overview (04/29/2024): Chelly Fernandez is a 29 y.o. female at 37w0d who is dated by 1st trimester ultrasound and is being admitted for a scheduled repeat due to uncontrolled T1DM . Admit to L&D: Labs: CBC and T&S pending. section after labs return. FWB: Continuous monitoring. Reactive NST. ID: 3rd trimester HIV (>28 wga) pending on 04/29. GBS negative on 04/25 . RPR on admission: pending. History of genital HSV or HSV 1/2 seropositivity: No. Membrane Status: intact. Indications for UDS: none. Verbal consent obtained for UDS: Not indicated. MOF: Plans to both breast and formula feed. Urine drug screen not indicated. Patient informed of results: N/A. MOC: Undecided on contraception after counseling. Pain management: CSE to be placed in the OR. Post DVT prophylaxis: The patient has the following MAJOR risk factors none and the following MINOR risk factors BMI 30-39 and delivery. enoxaparin 40 mg daily will be ordered for VTE prophylaxis . #T1DM: uncontrolled. For OB insulin protocol. Has Dexcom in place, current regimen in problem list. To calculate regimen - look at pump data for average TDD (total basal insulin + total mealtime insulin) of insulin over past week - multiply by 0.3 for reduction - patient plans to breastfeed, multiply by 0.85 = X. Basal insulin = (X * 0.5)/24. ICR = 500/X. ISF = 1500/X. #Anx/dep: in therapy, on zoloft 100mg qD #Gallstones: confirmed on RUQ US in . Avoid fatty/fried foods as able. #Hx CS x1: for decreased movement with second stage arrest care following delivery 04/04 Overview (06/22/2024): # ID: Afebrile. No signs/symptoms of infection. # Heme: EBL 800 mL. Hemodynamically stable. Pre-op Hgb 10.5. POD1 hgb 9.0. Ordered for PO iron. # CV/Pulm: Vital signs stable, ^BP in , not meeting criteria for hypertensive disorder. BP well controlled . # GI/: Tolerating PO. Voiding spontaneously. # T1DM: Endo following-decreased basal insulin by 10% from 1.4 to 1.3 due to mild hypoglycemia. Will monitor today. For weekly Dexcom review as an outpatient. The following adjustments have been proposed: 06/22/2024 No changes - Encourage to enter carbs for meal time boluses. Work on timing boluses 15-20 minutes before meals Time Basal Insulin Carb Ratio Sensitivity Target 0000 1.1 >1.2 1:7 30 130 Problem List Checklist [x] Endo c/s for pump management while inpatient (f/u recs on 05/01) [x] Check pump data daily [] follow up plan (select 1) [x] COH7 MFM / M Faculty Office Sites - Message Bailey Hernandez that patient delivered and to be reviewed at the weekly Fellow diabetes meeting for the next 4 weeks - message sent [] Prior to discharge, all patients should have endocrinology follow up scheduled within 1 month of delivery after which they will resume routine diabetes care - needs to set up f/u visit with primary termination clerk Rachel Sommer ([facility]) # Anxiety/Depression: in therapy, on zoloft 100mg qD # Pain: Controlled with above regimen. # MOC: Declines s/p counseling. # MOF: Both formula and . Urine drug screen not indicated. Patient informed of results: N/A. # Post DVT prophylaxis: The patient has the following MAJOR risk factors none and the following MINOR risk factors BMI 30-39 and delivery. enoxaparin 40 mg daily ordered for VTE prophylaxis. # Disposition: Follow up task sent to [facility] scheduling pool. Desires discharge home today. Gallstones 01/20/2024 Overview (01/20/2024): Seen in [facility] on 12/17 with abdominal pain and RUQ US showed gallstones. We discussed avoiding fatty and fried foods to limit biliary colic. Assessment & Plan (02/06/2024 1:14 AM CDT): Seen in [facility] on 12/17 with abdominal pain and RUQ US showed gallstones. Denies pain today. Reports improving diet to avoid exacerbation. Hemorrhoids 01/20/2024 Overview (02/17/2024): Reports pain with BM. Recommend Miralax to avoid straining and topical preparation H for discomfort Add dulcolax Assessment & Plan (03/12/2024 3:19 PM CDT): Increase to Miralax BID and Senna rx sent Assessment & Plan (02/06/2024 1:14 AM CDT): Symptoms improved with miralax and topical preparation H. History of Compartment syndrome (CMS/HCC) 2023 Pre-existing type 1 diabetes mellitus during , 11/10/2023 Overview (07/25/2024): Care Dexcom Share code: [email or web address] T-connect (switched to control-IQ and sleep mode on 7 PM!) [email or web address]: [email or web address] Password: [place]![email or web address] Current settings 07/25/2024 Work on timing boluses 15-20 minutes before meals Time Basal Insulin Carb Ratio Sensitivity Target 0000 1.2 1:7 30 > 22 130 1200 1.2 > 1.4 1:7 > 1:6 30 > 22 130 Plan for weekly adjustments Assessment & Plan (03/30/2024 5:23 PM CDT): Current settings: 03/28/2024 T slim Decrease carb intake with meals to 50-60 carbs per meal Time Basal Rate ISF ICR BG Target Insulin Duration 0000 2.2>2.4 10 5.5 120 3 0300 2.4>2.6 10 6 120 3 0800 2.4>2.6 10 4.5 120 3 1100 2.6>2.8 10 3.4 120 3 1500 2.7>3.0 10 3.4 120 3 2100 2.2>2.4 10 3.6 120 3 Plan - Physician adjusting insulin dosage: MFM [x] Counseling performed [x] Diabetes education 01/19 [x] Recommend weekly review of BG/insulin data to adjust insulin dosing [x] Glucagon prescribed 01/07 [x] Referral to ophthalmology for comprehensive eye exam - per patient last exam 10/2023 [x] Baseline CMP, UPC - 01/19, 01/28. 87/5- WNL [x] A1c qTrimester - drawn 03/30 [] First trimester TSH - ordered 02/04, not drawn, will add to labs 03/30 [x] ASA starting at 12 weeks gestation [] Baseline EKG, consider maternal TTE - ordered 02/04 [x] Specialized anatomy ultrasound at 18-20 weeks [x] echocardiogram at 20-22 weeks- WNL 01/21/24 [] Serial growth scans starting at 24 weeks, ongoing [] Twice weekly testing starting at 32 weeks, scheduled [x] insulin plan by 32 weeks - no data from early , calculate per protocol [] Delivery at 37 weeks - requested to schedule CS on 04/29 Assessment & Plan (03/12/2024 3:16 PM CDT): T slim, sleep mode ON Time Basal Rate ISF ICR BG Target Insulin Duration 0000 2.0 > 2.2 10 5.5 120 3 0300 2.2 > 2.4 10 6 120 3 0800 2.4 10 4.5 120 3 1100 2.4 > 2.6 10 4 120 3 1500 2.7 10 4 120 3 2100 2.2 10 4 120 3 Plan - Physician adjusting insulin dosage: MFM [x] Counseling performed [x] Diabetes education 01/19 [x] Recommend weekly review of BG/insulin data to adjust insulin dosing [x] Glucagon prescribed 01/07 [x] Referral to ophthalmology for comprehensive eye exam - per patient last exam 10/2023 [x] Baseline CMP, UPC - 01/19, 01/28. 87/5- WNL [] A1c qTrimester - need 3rdT [] First trimester TSH - ordered 02/04 [x] ASA starting at 12 weeks gestation [] Baseline EKG, consider maternal TTE - ordered 02/04 [x] Specialized anatomy ultrasound at 18-20 weeks [x] echocardiogram at 20-22 weeks- WNL 01/21/24 [] Serial growth scans starting at 24 weeks [] Twice weekly testing starting at 32 weeks [] insulin plan by 32 weeks [] Delivery at 39 0/7-39 6/7 (36 0/7 to 38 6/7 with vascular complications or poorly controlled) Assessment & Plan (02/06/2024 1:13 AM CDT): Previously counseled Last hemoglobin A1C: 8.1% on 10/28 > 7.1% 01/19 [employer] Share code: [email or web address].[email or web address]/ [email or web address]-GVJY-[email or web address] T-connect (switched to control-IQ and sleep mode on 7 PM!) Username: [email or web address] Password: [place]![email or web address] Current settings: 02/05/2024- T slim, sleep mode Time Basal Rate ISF ICR BG Target Insulin Duration 0000 1.8 12 6>5.5 120 3 0300 1.8 12 6 120 3 0800 2.2 12 5 120 3 1100 2.4 12 4.5 120 3 1500 2.5 12 5 120 3 2100 2.0 12 5>4.5 120 3 Pre- TDD of insulin: Pre- weight: plan: Time Basal Insulin Carb Ratio Sensitivity Target Plan - Physician adjusting insulin dosage: MFM [x] Counseling performed [x] Diabetes education 01/19 [x] Recommend weekly review of BG/insulin data to adjust insulin dosing [x] Glucagon prescribed 01/07 [x] Referral to ophthalmology for comprehensive eye exam - per patient last exam 10/2023 [x] Baseline CMP, UPC - 01/19, 01/28. 87/5- WNL [] A1c qTrimester - need 3rdT [] First trimester TSH - ordered 02/04 [x] ASA starting at 12 weeks gestation [] Baseline EKG, consider maternal TTE - ordered 02/04 [x] Specialized anatomy ultrasound at 18-20 weeks [x] echocardiogram at 20-22 weeks- WNL 01/21/24 [] Serial growth scans starting at 24 weeks [] Twice weekly testing starting at 32 weeks [] insulin plan by 32 weeks [] Delivery at 39 0/7-39 6/7 (36 0/7 to 38 6/7 with vascular complications or poorly controlled) Assessment & Plan (01/20/2024 4:50 PM CDT): Bgs universally high with rare lows after overcorrecting. We discussed +/- of admission for glycemic control which is likely to be less useful unless she is in DKA because organogenesis is complete and she will not be eating like she does at home. Will send beta hydroxybutyrate today with BMP and dip urine in office given BG up to 380 earlier today. Changes to be made as above. Will review CGM on Thursday with new settings. Assessment & Plan (12/11/2023 12:03 PM CDT): Reviewed importance of weekly titration. Discussed PVT precautions. Anxiety and depression 11/10/2023 Overview (04/25/2024): EPDS 02/17/24: 10 Currently in therapy and reports this is helping. Started on sertraline 50mg daily on 03/30. Peds for delivery. Continue mood screening each visit. Assessment & Plan (04/11/2024 12:16 PM CDT): Mood stable Assessment & Plan (03/30/2024 5:25 PM CDT): EPDS 02/17/24: 10 Currently in therapy and reports this is helping 03/30: feels depression has worsened in past month with ongoing significant anxiety despite therapy. Symptomatic >50% of days. Used citalopram in past without improvement. Trial of sertraline 50 mg daily x 7 days then increase to 100 mg daily. Assessment & Plan (02/06/2024 1:20 AM CDT): No meds. EPDS 02/04: 15, answered 0 to Q#10. Currently in therapy and reports this is working. We briefly discussed the option of medication, specifically SSRI/SNRIs in as well as the importance of maternal mental health to improve outcomes. She elects at this time to continue with therapy. ED precautions given. Plan for follow up visit in 2 wks for mood check. Consider PNBHS. Left ovarian cyst 10/20/2022 Resolved Problems Problem Noted Date Diagnosed Date Resolved Date History of section complicating 11/10/2023 05/26/2024 Overview (04/11/2024): Last delivery after IOL at 36 wks (after NST for decreased movement) with second stage arrest and delivery. Desires repeat LTCS scheduled 04/29 @1130 Assessment & Plan (03/30/2024 5:23 PM CDT): Last delivery after IOL at 36 wks (after NST for decreased movement) with second stage arrest and delivery. Desires repeat LTCS. Assessment & Plan (03/12/2024 3:16 PM CDT): Last delivery after IOL at 36 wks (after NST for decreased movement) with second stage arrest and delivery. She is leaning towards repeat today but will continue to discuss this during . Assessment & Plan (02/06/2024 1:14 AM CDT): Last delivery after IOL at 36 wks (after NST for decreased movement) with second stage arrest and delivery. She is leaning towards repeat today but will continue to discuss this during . Supervision of high-risk pre gnancy, second trimester 11/10/2023 05/26/2024 Overview (04/27/2024): [x] Full [facility] Care; [] Blue Team- full transfer of care to [facility] as of 11/26/23, email sent to -som [x]Red team Referring Provider: Leonor Huang [phone] [x] Dating Criteria: US 10/29/23 with JOSE A 05/20/24 [x] Labs: Rh [A+], Ab [neg], Rubella [immune], HIV [non-reactive], HepBSAg [non-reactive], RPR [non-reactive], Hep C [non-reactive], Varicella [not done], GC/CT [negative/negative] [x] Aneuploidy: declines [x] Carrier Screening: declines [x] CBC/Hgb: 13.8/41.9/plt 296 [x] UCx: 10/29/23 no growth [x] Pap: 07/11/22: NILM [] Flu Shot (Apr-Jul): [] COVID [x] LD ASA (if indicated) [] EPDS [ ]; PNBHS referral (if indicated) 2nd Tri Labs: [x] Anatomy ultrasound: completed [x] CBC/1hr gtt at 24-28wks: 01/28 11.1/32.1 [x] Tdap (27-36wks): given 03/02 3rd Tri Labs: [] CBC/HIV/RPR/TSH with reflex/A1C: external lab, [facility] in [place]-we have attempted to get the results and reach out the patient but I am not sure she got them all drawn. I have not heard back. [] GBS: [] testing :2x/weekly at 32w 2/2 diabetes Counseling [x] MOD: Repeat C/S at 37 weeks, scheduled on 04/29/2024 at 1130- letter sent, give CHG bath at next visit [x] Place of delivery: [facility] [] Last clinic visit SVE: [] Blood Products [] Consents signed: [] Stop ASA [x] MOC: considering partner vasectomy vs BTL at c/s- consents signed 02/17/24 [x] Method of feeding: would like to attempt breast feeding. [x] Curbing Stonecutter: discussed [] PP Depression Discussed: Assessment & Plan (03/30/2024 5:37 PM CDT): [x] Full [facility] Care; [] Blue Team- full transfer of care to [facility] as of 11/26/23, email sent to [facility] [x]Red team Referring Provider: Leonor Huang [phone] [x] Dating Criteria: US 10/29/23 with JOSE A 05/20/24 [x] Labs: Rh [A+], Ab [neg], Rubella [immune], HIV [non-reactive], HepBSAg [non-reactive], RPR [non-reactive], Hep C [non-reactive], Varicella [not done], GC/CT [negative/negative] [x] Aneuploidy: declines [x] Carrier Screening: declines [x] CBC/Hgb: 13.8/41.9/plt 296 [x] UCx: 10/29/23 no growth [x] Pap: 07/11/22: NILM [] Flu Shot (Apr-Jul): [] COVID [x] LD ASA (if indicated) [] EPDS [ ]; PNBHS referral (if indicated) 2nd Tri Labs: [x] Anatomy ultrasound: completed [x] CBC/1hr gtt at 24-28wks: 01/28 11.1/32.1 [x] Tdap (27-36wks): given 03/02 3rd Tri Labs: [] CBC/HIV/RPR/T&S: [] GBS: [] testing :2x/weekly at 32w 2/2 diabetes Counseling [x] MOD: Repeat C/S at 37 weeks, requested on 04/29/2024 at 1130 [x] Place of delivery: [facility] Assessment & Plan (03/12/2024 3:18 PM CDT): 2nd Tri Labs: [x] Anatomy ultrasound: completed [x] CBC/1hr gtt at 24-28wks: 01/28 11.1/32.1 [x] Tdap (27-36wks): given 03/02 Assessment & Plan (02/06/2024 1:17 AM CDT): Full MFM care. Declines genetic or carrier screening. Reviewed contraceptive plan. Reports will have completed her family after this . Partner planning vasectomy. We reviewed options for contraception including LARCs and sterilization. Provided [email or web address] website. She is considering her options. Encounters Date Type Department Care Team Description 10/06/2024 2:00 PM SCRAP SEPARATOR Office Visit [facility] [address] [place] [address] 3rd Floor [address] [place] [address] Nicolle Munoz MD Follow-up examination (Primary Dx) 09/27/2024 Orders Only [address] [address] Brandi Lara MD Postop check (Primary Dx) 09/22/2024 Results Follow-Up [facility] [address] [place] [address] 3rd [address] [place] [address] Jacinto Burnett MD 09/13/2024 3:03 PM SCRAP SEPARATOR Anesthesia Event [facility] Operating Room [address] [place] [address] Genia Delgado MD Wilkinson, Christina A., NP 09/13/2024 12:55 PM SCRAP SEPARATOR - 09/13/2024 2:55 PM SCRAP SEPARATOR Surgery [facility] Operating Room [address] [place] [address] Jacinto Burnett MD LAPAROSCOPIC ASSISTED SALPINGECTOMY - VAGINAL vNOTES APPROACH 09/13/2024 11:05 AM SCRAP SEPARATOR - 09/13/2024 7:59 PM SCRAP SEPARATOR Hospital Encounter [facility] Operating Room [address] [place] [address] Jacinto Burnett MD Admission for sterilization; Pelvic adhesions Discharge Disposition: Discharge to home or self care 09/12/2024 Telephone [facility] [place] [facility] Obstetrics and Gynecology [facility] 7th Floor [address] [place] [address] Yvonne Crocker CMA 08/10/2024 Telephone [facility]necology Clinic [address] [facility] 3rd Floor [address] [place] [address] Gail Hartmann 07/28/2024 2:45 PM SCRAP SEPARATOR Office Visit Obstetrics and Gynecology Clinic [address] [facility] 3rd Floor [address] [place] [phone] Wen Campos MD Unwanted fertility (Primary Dx); Pelvic adhesions; Moderate episode of recurrent major depressive disorder (HCC); Type 1 diabetes mellitus with hyperglycemia (HCC) from Last 3 Months Immunizations Immunization Administration Dates Next Due Tdap 03/02/2024 Surgical History Surgery Date Site/Laterality Comments TONSILLECTOMY/ADENOIDECTOMY TYMPANOSTOMY TUBE PLACEMENT WISDOM TOOTH EXTRACTION APPENDECTOMY SECTION 04/03/2024 - 05/02/2024 LEG SURGERY 6 surgeries on left leg including skin graph Medical History Medical History Date Comments Diabetes mellitus (HCC) Type 1 Motion sickness reports mostly w ith super long trips GERD (gastroesophageal reflux disease) Diabetes mellitus type I (HCC) Family History Medical History Relation Name Comments Diabetes Father Diabetes Mother Anesthesia problems Neg Hx Relation Name Status Comments Father Mother Social History Tobacco Use Types Packs/Day Years Used Date Smoking Tobacco: Every Day Cigarettes E-cigarettes Smokeless Tobacco: Never Tobacco Cessation:Ready to Q uit: Not Asked; Counseling Given: No Alcohol Use Standard Drinks/Week Comments Not Currently 0 (1 standard drink = 0.6 oz pur e alcohol) [facility] Utilities Answer Date Recorded In the past 12 months has [employer], gas, oil, or water [employer] threatened to shut off services in your home? No 04/30/2024 Social Connection and Isolation Panel [NHANES] A nswer Date Recorded In a typical week, how many times do you talk on the phone with family, friends, or neighbors? Three times a week 04/30/20 How often do you get togethe r with friends or relatives? Three times a week 04/30/2024 How often do you attend chur ch or adventist services? Never 04/30/2024 Do you belong to any clubs o r organizations such as buddhism groups, unions, fraternal or athletic groups, or school groups? No 04/30/2024 How often do you attend meet ings of the clubs or organizations you belong to? Never 04/30/2024 Are you , , di vorced, , never , or living with a partner? Living with partner 04/30/2024 AUDIT-C Answer Date Recorded Q1: How often do you have a drink containing alc ohol? Monthly or less 09/13/2024 Q2: How many drinks containi ng alcohol do you have on a typical day when you are drinking? 1 or 2 09/13/2024 Q3: How often do you have si x or more drinks on one occasion? Never 09/13/2024 Overall Financial Resource Strain (CARDIA) Answe r Date Recorded How hard is it for you to pa y for the very basics like food, housing, medical care, and heating? Not hard at all 04/30/2024 Hunger Vital Sign Answer Date Recorded Within the past 12 months, y ou worried that your food would run out before you got the money to buy more. Never true 10/07/19 25 Within the past 12 months, t he food you bought just didn't last and you didn't have money to get more. Never true 10/06/2024 PRAPARE - Transportation Answer Date Re corded In the past 12 months, has l ack of transportation kept you from medical appointments or from getting medications? No 04/04 In the past 12 months, has l ack of transportation kept you from meetings, work, or from getting things needed for daily living? No 04/30/2024 [place] Depression Scale Answer Date Recorded [place] Depression Scale Total 15 06/16/2024 The thought of harming myself has occurred to me . Never 06/16/2024 Housing Stability Vital Sign Answer Peterson e Recorded In the last 12 months, was t here a time when you were not able to pay the mortgage or rent on time? No 04/30/2024 In the past 12 months, how m any times have you moved where you were living? 1 04/30/2024 At any time in the past 12 m [facility], were you homeless or living in a long term (including now)? No 04/30/2024 Personal Safety Answer Date Recorded Have you ever been in or are you currently in a harmful physical or emotional relationship or is someone making you feel afraid or unsafe? Denies 09/13/2024 Comments No Sex and Gender Information Value Date Recorded Sex Assigned at Not on file Legal Sex Female 7:38 PM SCRAP SEPARATOR Gender Identity Not on file Sexual Orientation Not on file Obstetrics History Para Term AB IAB SAB Ectopic Multiple Livin g Live Births 2 2 1 1 0 2 2 Date Outcome GA Total Labor Labor/2nd/3rd Weight Sex Type Anes PTL Rosa A1 A5 Name Clin 2019 36w 2d 3.58 kg (7 lb 14.3 oz) F CS-LT ranv Epidur al N Livin g 7 8 BROWN, BABY GIRL STEPHANIE Whitfield PHOENIX lópez MD Complications:Failure to Pro batsheva in Second Stage Delivery Location:[facility] ([facility]) 2023 Term 37w 0d 0h 02m 0h 02m 3.66 kg (8 lb 1.1 oz) M C-Sec tion Spinal N Livin g 5 9 Abiodun [facility], Paolo lassiter MD Complications:None Delivery Location:[facility] Main C ampus ([facility] L AND D PROCEDURE) Last Filed Vital Signs Vital Sign Reading Time Taken Comments Blood Pressure 134/70 10/06/2024 2:07 PM SCRAP SEPARATOR Pulse 104 10/06/2024 2:07 PM SCRAP SEPARATOR Temperature 37 C (98.6 F) 09/13/2024 6:20 PM SCRAP SEPARATOR Respiratory Rate 18 10/06/2024 2:07 PM SCRAP SEPARATOR Oxygen Saturation 98% 10/06/2024 2:07 PM SCRAP SEPARATOR Inhaled Oxygen Concentration - - Weight 102.5 kg (226 lb) 10/06/2024 2:07 PM SCRAP SEPARATOR Height 172.7 cm (5' 8 ) 10/06/2024 2:07 PM SCRAP SEPARATOR Body Mass Index 34.36 10/06/2024 2:07 PM SCRAP SEPARATOR Plan of Treatment Health Maintenance Due Date Last Done Comments Albumin Creatinine Ratio, Urine 1996 Foot Exam 1996 Dilated Eye Exam 2006 Regular Well Visit/Exam 18-64 2014 Lipid Panel 11/05/2019 11/04/2018, 09/03, 05/11/2013 TSH Level 11/18/2023 11/17/2022 Influenza Vaccine (#1) 2024 6, 06/06/2014, 06/06/2014, Additional history exists Hemoglobin A1C 10/29/2024 05/01/2024, 04/04, 01/20/2024, Additional history exists eGFR 04/29/2025 04/29/2024, 04/03, 01/29/2024, Additional history exists Depression Screening 06/16/2025 06/16/2024 DTaP/Tdap/Td Vaccine (11 - T d or Tdap) 03/02/2034 03/02/2024, 11/08/2019, 05/10/2013, Additional history exists Pneumococcal vaccine <65 (3 of 3 - PCV20 or PCV21) 2046 04/28/2019, 09/04/2018 Hepatitis B Screening Completed 04/05/1997 , 1996, 1996, Additional history exists Varicella Vaccines Completed 01/21/2008, 05/23/1997 HPV Vaccines Completed 01/20/2012, 07/0 08/2010, 02/22/2010, Additional history exists Cervical Cancer Screening Discontinued 03/22/2019 Hepatitis C Screening Completed 09/12/2024, 024 Procedures Procedure Name Priority Date/Time Associated Diagnosis Comments POCT GLUCOSE DEVICE Routine 09/13/2024 7 :32 PM SCRAP SEPARATOR POCT GLUCOSE DEVICE Routine 09/13/2024 6 :53 PM SCRAP SEPARATOR POCT GLUCOSE DEVICE Routine 09/13/2024 5 :40 PM SCRAP SEPARATOR POCT GLUCOSE DEVICE Routine 09/13/2024 4 :39 PM SCRAP SEPARATOR SURGICAL PATHOLOGY Routine 09/13/2024 4: 31 PM SCRAP SEPARATOR Admission for sterilization Pelvic adhesions POCT GLUCOSE DEVICE Routine 09/13/2024 3 :35 PM SCRAP SEPARATOR ME AN PROCEDURE PLACEHOLDER Routine 09/13/2024 3:25 PM SCRAP SEPARATOR ME AN EMERGENT ENDOTRACHEAL AIRWAY Routine 09/13/2024 3:25 PM SCRAP SEPARATOR LAPAROSCOPIC ASSISTED SALPINGECTOMY - VAGINAL vNOTES APPROACH 09/13/2024 3:08 PM SCRAP SEPARATOR Admission for sterilization Pelvic adhesions Case Notes 2/ - Per Yvonne, case in depot for reschedule. BN POCT GLUCOSE DEVICE Routine 09/13/2024 2 :28 PM SCRAP SEPARATOR HEMOGLOBIN AND HEMATOCRIT STAT 09/13/2024 1:31 PM SCRAP SEPARATOR TYPE AND SCREEN STAT 09/13/2024 1:31 PM SCRAP SEPARATOR POCT GLUCOSE DEVICE Routine 09/13/2024 1 :25 PM SCRAP SEPARATOR POCT HCG, URINE Routine 09/13/2024 1:00 PM SCRAP SEPARATOR HEPATITIS C RNA, QUANTITATIVE, PCR Routine 09/12/2024 12:00 PM SCRAP SEPARATOR HEMOGLOBIN A1C Routine 04/30/2024 4:35 AM CDT EGFR STAT 04/29/2024 10:16 AM CDT SERUM LIPID PANEL Routine 09/21/2015 11: 19 AM SCRAP SEPARATOR from Last 3 Months or Most Recently Relevant to Health Maintenance Results * (ABNORMAL) POCT glucose (09/13/2024 7:32 PM SCRAP SEPARATOR) Pathologist [facility] Glucose, POC 279(H) 70 - 199 mg/dL Blood 09/13/2024 7:32 PM SCRAP SEPARATOR 09/13/2024 7:32 PM SCRAP SEPARATOR us Jacinto Burnett MD LAB POCT ORDERABLES - HAYDEN CE Final Result [facility] [address] [facility] Department [place] [address] * (ABNORMAL) POCT glucose (09/13/2024 6:53 PM SCRAP SEPARATOR) Glucose, POC 284(H) 70 - 199 mg/dL Blood 09/13/2024 6:53 PM SCRAP SEPARATOR 09/13/2024 6:53 PM SCRAP SEPARATOR Jacinto Burnett MD LAB POCT ORDERABLES - HAYDEN CE Final Result Performing Organization Address [facility] de Phone Number [facility] [place] [address] * (ABNORMAL) POCT glucose (09/13/2024 5:40 PM SCRAP SEPARATOR) Glucose, POC 266(H) 70 - 199 mg/dL Blood 09/13/2024 5:40 PM SCRAP SEPARATOR 09/13/2024 5:40 PM SCRAP SEPARATOR Jacinto Burnett MD LAB POCT ORDERABLES - HAYDEN CE Final Result Performing Organization Address [facility] de Phone Number [facility] Department [place] [address] * POCT glucose (09/13/2024 4:39 PM SCRAP SEPARATOR) Glucose, POC 186 70 - 199 mg/dL Blood 09/13/2024 4:39 PM SCRAP SEPARATOR 09/13/2024 4:39 PM SCRAP SEPARATOR Jacinto Burnett MD LAB POCT ORDERABLES - HAYDEN CE Final Result Performing Organization Address [facility] de Phone Number [facility] [place] [address] * Surgical pathology (09/13/2024 4:31 PM SCRAP SEPARATOR) Tissue (Fallopian tube, sterilization) 09/13/2024 4:31 PM SCRAP SEPARATOR Narrative PATHOLOGY [facility] - 09/20/2024 3:56 PM SCRAP SEPARATOR EPIC results best viewed via link to PDF [facility] [place] [address] Note to Patients: This report may contain a detailed description of human tissue sent by a health care provider to the laboratory for pathologic evaluation. The content of this report is essential for diagnosis and may provide important critical findings. This information may be unfamiliar to patients to review without a medical professional present. It is advised that the patient review this report in the presence of a health care provider who can answer questions and explain the details. SURGICAL PATHOLOGY REPORT FINAL Patient Name: CHELLY FERNANDEZ Gender: F : 1995 (Age: 29) Address: [address] [place] [address] Hospital #: [id number] Taken:09/13/2024 Received:09/14/2024 Reported: 09/20/2024 Patient Type: [facility] Service: Gynecology Location: [facility] OR POD1 Physician(s): Salma Paredes M.D. Diagnosis: Fallopian tubes, bilateral, salpingectomy - Fallopian tubes with no histopathologic abnormality (complete cross sections identified bilaterally) - Paratubal cyst [facility]/09/16/2024 16:12 By this signature, I attest that the above diagnosis is based upon my personal examination of the slides(and/or other material indicated in the diagnosis). Yao Mackenzie M.D., Ph.D. Report Electronically Reviewed and Signed Out By Yao Mackenzie M.D., Ph.D. 09/20/2024 15:56:45 Yarelis Holly M.D. History: The patient is a 29-year-old woman with pelvic adhesions presenting for sterilization. Operative Procedure: laparoscopic assisted salpingectomy - vaginal NOTES approach Specimen(s) Received: A: Bilateral fallopian tubes Gross Description: Received in formalin labeled with patient identifiers bilateral fallopian tubes are two unoriented soft purple partially disrupted fallopian tubes (3.7-5.2 cm in length and 0.7-1.0 cm in diameter). Serial sections show stellate lumens and intact fimbriated ends and a single serous paratubal cyst in the fimbriae of the longer tube (1.4 cm in diameter). Adult Specialist sections are submitted as follows: A1 [place] fallopian tube including fimbriae A2 Longer fallopian tube including fimbriae and cyst Jar 1. 09/04/1109/14/2024 10:53 PA(s): VLADISLAV Carmona (ASCP)CM By this signature, I attest that the above diagnosis is based upon my personal examination of the slides(and/or other material). Addenda/Procedures The performance characteristics of some immunohistochemical stains, fluorescence in-situ hybridization tests and immunophenotyping by flow cytometry cited in this report (if any) were determined by the Surgical Pathology and Flow Cytometry Departments at [facility] as part of an ongoing plant quality manager program and in compliance with federally mandated regulations drawn from the Clinical Laboratory Improvement Act of 1988 (CLIA '88). Some of these tests rely on the use of analyte specific reagents and are subject to specific labeling requirements by the US Food and Drug Administration. Such diagnostic tests may only be performed in a facility that is certified by the Department of Health and Human Services as a high complexity laboratory under CLIA '88. The FDA has determined that such clearance or approval is not necessary. This test is used for clinical purposes. It should not be regarded as investigational or for research. Nevertheless, federal rules concerning the medical use of analyte specific reagents require that the following disclaimer be attached to the report: This test was developed and its performance characteristics determined by the Surgical Pathology and Flow Cytometry Departments of [facility]. It has not been cleared or approved by the U. S. Food and Drug Administration. IMAGES AND SCANNED DOCUMENTS, IF INCLUDED, ONLY VIEWABLE IN PDF VERSION OF REPORT us Jacinto Burnett MD LAB PATHOLOGY ORDERABLES F inal Result PATHOLOGY [facility] 3rd Floor [place], [place] [phone] * POCT glucose (09/13/2024 3:35 PM SCRAP SEPARATOR) Glucose, POC 153 70 - 199 mg/dL Blood 09/13/2024 3:35 PM SCRAP SEPARATOR 09/13/2024 3:35 PM SCRAP SEPARATOR Jacinto Burnett MD LAB POCT ORDERABLES - HAYDEN CE Final Result [facility] Department [place] [address] * ME AN EMERGENT ENDOTRACHEAL AIRWAY, ME AN PROCEDURE PLACEHOLDER (09/13/2024 3:25 PM SCRAP SEPARATOR) Narrative Alek Rios CRNA - 09/13/2024 3:25 PM SCRAP SEPARATOR Alek Rios CRNA 09/13/2024 3:26 PM Airway Patient location: OR Urgency: emergent Indications for airway management: anesthesia and airway protection Difficult airway: no Staff: Supervising provider: Genia Delgado MD Placed by: TAI CHI INSTRUCTOR: Alek Rios CRNA Emergent airway documentation: Patient identity confirmed by: verbally with patient, arm band, provided demographic data and hospital-assigned identification number Risks and benefits discussed: yes Consent obtained: yes Consent given by: patient Airway prep: Preoxygenated: yes Patient position: sniffing Mask difficulty assessment: 1 - vent by mask Spontaneous ventilation during airway: absent Sedation level during airway: GA Final airway details: Final airway type: endotracheal airway Tube type: ETT ETT size: 7.0 mm Cuffed: yes Technique used for successful ETT placement: video laryngoscopy Devices/Methods used in placement: intubating stylet Insertion site: oral Blade type: Francisco J Video blade type: Ferrer Blade size: 3 Cormack-Lehane (video): grade I - full view of glottis Cuff volume: 8 mL Cuff inflated with: air ETT to teeth: 22 cm Placement verified by: auscultation and CO2 detection Airway secured with: silk tape Number of attempts: 1 Genia Delgado MD ANESTHESIA ORDERABLES Fi nal Result * POCT glucose (09/13/2024 2:28 PM SCRAP SEPARATOR) Glucose, POC 133 70 - 199 mg/dL Blood 09/13/2024 2:28 PM SCRAP SEPARATOR 09/13/2024 2:28 PM SCRAP SEPARATOR Jacinto Burnett MD LAB POCT ORDERABLES - HAYDEN CE Final Result Performing Organization Address [facility] de Phone Number [facility] [place] [address] * Hemoglobin and hematocrit (09/13/2024 1:31 PM SCRAP SEPARATOR) Hgb 12.5 11.9 - 15.5 g/dL Hct 37.1 35.6 - 45.5 % [facility] Blood 09/13/2024 1:31 PM SCRAP SEPARATOR 09/13/2024 1:55 PM SCRAP SEPARATOR Jacinto Burnett MD LAB BLOOD ORDERABLES Final Result Performing Organization Address [facility] [place] [address] * Type and screen (09/13/2024 1:31 PM SCRAP SEPARATOR) Ortiz, indirect Negative ABO Rh A Positive [facility] Blood 09/13/2024 1:31 PM SCRAP SEPARATOR 09/13/2024 1:43 PM SCRAP SEPARATOR Narrative [facility] - 09/13/2024 3:00 PM SCRAP SEPARATOR Has the patient had Daratumumab or Isatuximab in the past 6 months?->Unknown Jacinto Burnett MD LAB BLOOD BANK TEST ORDERA BLES Final Result Performing Organization Address [facility] Co de Phone Number [facility] [place] [address] * POCT glucose (09/13/2024 1:25 PM SCRAP SEPARATOR) Glucose, POC 124 70 - 199 mg/dL Blood 09/13/2024 1:25 PM SCRAP SEPARATOR 09/13/2024 1:25 PM SCRAP SEPARATOR Jacinto Burnett MD LAB POCT ORDERABLES - HADYEN CE Final Result Performing Organization Address [facility]/ZIP Co de Phone Number [facility] [place] [address] * POCT hCG, urine (09/13/2024 1:00 PM SCRAP SEPARATOR) [facility] HCG, ur, POC Negative Negative Lot Number [id number] QC Backgroud Clear Acceptable QC Control Line Acceptable Urine 09/13/2024 1:00 PM SCRAP SEPARATOR Jacinto Burnett MD POINT OF CARE TEST ORDERAB LES Final Result * Hepatitis C (HCV) RNA PCR, quantitative Blood (09/12/2024 12:00 PM SCRAP SEPARATOR) [facility] HCV RNA result Not Detected [facility] Comment: The quantifiable range of this assay is 15 IU/mL to 100,000,000 IU/mL (1.18 log IU/mL to 8.00 log IU/mL). Testing was performed by the TRACEY 6800 HCV Test ([employer] Testing performed at [facility] Current Interpretive Data was last revised on 2021 Testing performed by: [facility], [address] [facility], [place]., [address] Blood 09/12/2024 12:0 0 PM SCRAP SEPARATOR 09/12/2024 4:24 PM SCRAP SEPARATOR Martha Weston MD LAB MICROBIOLOGY - GENERAL ORDERABLES Final Result Performing Organization Address City/[facility]/ZIP Co de Phone Number [facility] [address] [facility] [place] [address] [facility] * (ABNORMAL) Hemoglobin A1c (04/30/2024 4:35 AM CDT) [facility] Hgb A1C 7.1(H) 4.0 - 5.6 % Estimated Average Glucose 157 mg/dL [facility] Comment: The ADA recommends reporting an estimated Average Glucose (eAG) with all Hemoglobin A1c results using the equation derived from a study of 507 normal and diabetic adults. Minority populations were underrepresented and children were not included. (Diabetes Care 2020; 43(S1): S66-S76). The eAG is not equivalent to a fasting glucose. Blood 04/30/2024 4:35 AM CDT 04/30/2024 4:54 AM CDT us Amee Bliss MD LAB BLOOD ORDERAB LES Final Result [facility] [place] [address] * eGFR (04/29/2024 10:16 AM CDT) eGFR >90 >=60 mL/min/1. 73 m2 Comment: Interpretive Data Reference Interval Normal >/= 90 mL/min/1.73m2 Mildly decreased* 60 - 89 mL/min/1.73m2 Mildly to moderately decreased 45 - 59 mL/min/1.73m2 Moderately to severely decreased 30 - 44 mL/min/1.73m2 Severely decreased 15 - 29 mL/min/1.73m2 Kidney Failure < 15 mL/min/1.73m2 *Relative to young adult level Estimated glomerular filtration rate is determined by the 2020 CKD-EPI equation recommended by the National Kidney Foundation (A Unifying Approach to GFR Estimation: Recommendations of the NKF-ASK Task Force on Reassessing the Inclusion of Race in Diagnosing Kidney Disease, JASN 202). The CKD-EPI equation should not be used for patients with unstable renal function and has not been validated in children and those over 70. Current interpretive data was last reviewed 2021. Blood 04/29/2024 10:1 6 AM CDT 04/29/2024 10:27 AM CDT us Mica Gray MD LAB BLOOD ORDE DANIAL Final Result Performing Organization Address City/[facility]/ZIP Co de Phone Number [facility] [place] [address] * Serum lipid panel (09/21/2015 11:19 AM SCRAP SEPARATOR) [employer] Signature Cholesterol 177 <=199 mg/dl HISTORICAL RESULTS Comment: Interpretive Data Age less than or = 19 years: <200 mg/dL Acceptable: <170 mg/dL Borderline High: 170-199 mg/dL High: Greater than or = 200 mg/dL Age greater than or = 20 years: <240 mg/dL Desirable: <200 mg/dL Borderline High: 200-239 mg/dL High: Greater than or = 240 mg/dL Literature References: 1. Expert Panel on Integrated Guidelines for Cardiovascular Health and Risk Reduction in Children and Adolescents. Pediatrics 2011;128:S213. 2. National Cholesterol Education Program (NCEP) Expert Panel on Detection, Evaluation, and Treatment of High Blood Cholesterol in Adults (Adult Treatment Panel III). Circulation 2004;110:227. Current interpretive data was last revised on 2013. Triglycerides 97 <=129 mg/dl HISTORICAL RESULTS Comment: Interpretive Data Age less than or = 9 years: <100 mg/dL Acceptable: <75 mg/dL Borderline High: 75-99 mg/dL High: Greater than or = 100 mg/dL Age 10-19 years: <130 mg/dL Acceptable: <90 mg/dL Borderline High: 90-129 mg/dL High: Greater than or = 130 mg/dL Age greater than or = 20 years: <200 mg/dL Desirable: <150 mg/dL Borderline High: 150-199 mg/dL High: Greater than or = 200 mg/dL Literature References: 1. Expert Panel on Integrated Guidelines for Cardiovascular Health and Risk Reduction in Children and Adolescents. Pediatrics 2011;128:S213. 2. National Cholesterol Education Program (NCEP) Expert Panel on Detection, Evaluation, and Treatment of High Blood Cholesterol in Adults (Adult Treatment Panel III). Circulation 2004;110:227. Current interpretive data was last revised on 2013. HDL 56 >=44 mg/dl HISTORICAL RESULTS Comment: Interpretive Data Age less than or = 19 years: >45 mg/dL Low: <40 mg/dL Borderline Low: 40-45 mg/dL Acceptable: >45 mg/dL Age greater than or = 20 years: >40 mg/dL Low*: <40 mg/dL Borderline Low: 40-59 mg/dL High: Greater than or = 60 mg/dL *Low HDL is considered a major risk factor for cardiovascular disease. Literature References: 1. Expert Panel on Integrated Guidelines for Cardiovascular Health and Risk Reduction in Children and Adolescents. Pediatrics 2011;128:S213. 2. National Cholesterol Education Program (NCEP) Expert Panel on Detection, Evaluation, and Treatment of High Blood Cholesterol in Adults (Adult Treatment Panel III). Circulation 2004;110:227. Current interpretive data was last revised on 2013. LDL 101 <=129 mg/dl HISTORICAL RESULTS Comment: Interpretive Data Age less than or = 19 years: <130 mg/dL Acceptable: <110 mg/dL Borderline High: 110-129 mg/dL High: >130 mg/dL Age greater than or = 20 years: <160 mg/dL Optimal: <100 mg/dL Near Optimal: 100-129 mg/dL Borderline High: 130-159 mg/dL High: greater than or = 160 mg/dL Literature References: 1. Expert Panel on Integrated Guidelines for Cardiovascular Health and Risk Reduction in Children and Adolescents. Pediatrics 2011;128:S213. 2. National Cholesterol Education Program (NCEP) Expert Panel on Detection, Evaluation, and Treatment of High Blood Cholesterol in Adults (Adult Treatment Panel III). Circulation 2004;110:227. Current interpretive data was last revised on 2013. Non-HDL cholesterol, calculated 121 <=144 mg/dl HISTORICAL RESULTS Comment: Interpretive Data Age less than or = 19 years: <145 mg/dL Acceptable: <120 mg/dL Borderline High: 120-144 mg/dL High: >145 mg/dL Age greater than or = 20 years: When triglycerides are >200 mg/dL, Non-HDL cholesterol is a secondary target of therapy with treatment goals that are 30 mg/dL greater than the LDL cholesterol target. Literature References: 1. Expert Panel on Integrated Guidelines for Cardiovascular Health and Risk Reduction in Children and Adolescents. Pediatrics 2011;128:S213. 2. National Cholesterol Education Program (NCEP) Expert Panel on Detection, Evaluation, and Treatment of High Blood Cholesterol in Adults (Adult Treatment Panel III). Circulation 2004;110:227. Current interpretive data was last revised on 2013. Serum 09/21/2015 11:1 9 AM SCRAP SEPARATOR us Historical Provider LAB BLOOD ORDERABLES Korin ochoa Result HISTORICAL RESULTS from Last 3 Months or Most Recently Relevant to Health Maintenance Insurance [facility] EMPLOYEES [facility] [place] [address] [address] [place] [address] EMPLOYEES [facility] Advance Directives For more information, please contact: [phone] * Full Code (Latest Code Status on File) Date Activated Date Inactivated Comments 04/29/2024 3:15 PM 05/03/2024 9:43 PM * Full Code Date Activated Date Inactivated Comments 04/29/2024 11:06 AM 04/29/2024 3:15 PM Full CPR in case of cardiopulmonary arrest * Full Code Date Activated Date Inactivated Comments 01/29/2024 6:31 PM 01/30/2024 4:14 PM Care Teams Security Services Specialist Relationship Specialty Start Date End Date Moody Beltran MD [address] [place] [address] PCP - General Family Medicine 10/31/22
--- OUTSIDE RECORDS SUMMARY | 2024-10-23 09:19 | XMS_ITS | Encounter Summary ---
Author Organization [facility] Address [address] [place] [address] Phone Care Team Providers Care Policy Change Clerk Name Role Phone Moody Beltran MD Primary Care Provider [phone] Jai Naidu MD Unavailable [phone] Rachel Sommer MD Unavailable Reason for Visit * Reason Comments Medication Refill Encounter Details Date Type Department Care Team (Late st Contact Info) Description 06/26/2021 Refill [facility] - Family Medicine [facility] [address] [place] [phone] Anastacio James, EXECUTIVE PRODUCER PROMOS, QUALITY CONTROL SPECIALIST [address] [address] Medication Refill Social History Tobacco Use Types Packs/Day Years Used Date Smoking Tobacco: Never Smokeless Tobacco: Never Alcohol Use Standard Drinks/Week Comments Yes 0 (1 standard drink = 0.6 oz pur e alcohol) socially Sexually Active Control Partners Comments Yes Oral Contraceptive Male Comments No Sex and Gender Information Value Date Recorded Sex Assigned at Not on file Legal Sex Female 7:44 PM CDT Gender Identity Not on file Sexual Orientation Not on file documented as of this encounter Miscellaneous Notes * Telephone Encounter - Maryam Fair RN - 06/26/2021 2:29 PM CST Per nursing clinical judgement, provider to review and approve the medication(s) order(s) if appropriate. No protocol. Last OV 05/21/21, F/U 08/22/21, Last Rx 02/18/21 Maryam GONZALEZ Requested Prescriptions Pending Prescriptions Disp Refills HumaLOG 100 UNIT/ML Solution [Pharmacy Med Name: HUMALOG 100 UNIT/ML VIAL] 20 mL 1 Sig: INJECT 10-20U OF INSULIN THREE TIMES A DAY WITH MEALS PER SLIDING SCALE. There is no refill protocol information for this order [employer] documented in this encounter Plan of Treatment Upcoming Encounters Date Type Department Care Team (Latest Contact Info) Description 11/16/2024 11:15 AM CDT Outpatient Clinic Visit [facility] [address] [place] [address] Val Pemberton, [facility] [address] [place] [address] Discharge Disposition: Discharged to home or Selfcare 12/07/2024 11:30 AM CDT Office Visit [facility] - Endocrinology [facility] [address] [place] [address] Rachel Sommer MD [address] [address] documented as of this encounter Visit Diagnoses Diagnosis Type 1 diabetes mellitus with hyperglycemia (HCC) Type I (juvenile type) diabetes mellitus without mention of complication, not stated as uncontrolled documented in this encounter Care Teams Policy Change Clerk Relationship Specialty Start Date End Date Moody Beltran MD #2 [facility] [address] [place] [address] PCP - General Family Medicine 02/13/21 Jai Naidu MD [address] [address] Consulting Physician General Surgery 10/11/21 Rachel Sommer MD #[address] [phone] Consulting Physician Endocrinology 01/30/22 documented as of this encounter
--- OUTSIDE RECORDS SUMMARY | 2024-10-23 09:19 | XMS_ITS | Referral Summary ---
Author Organization [address] Address [address] [place] [address] Care Team Providers Care Brick Molder Hand Name Role Phone Moody Beltran MD Primary Care Provider [phone] Encounters Date Type Department Care Team Description 10/06/2024 2:00 PM DONOR SUPPORT TECHNICIAN Office [facility] [address] [place] [address] 3rd Floor [address] [place] [phone] Nicolle Munoz MD Follow-up examination (Primary Dx) 09/27/2024 Orders Only [address] [address] Brandi Lara MD Postop check (Primary Dx) 09/22/2024 Results Follow-Up [facility] [address] [place] [address] Floor [address] [place] [phone] Jacinto Burnett MD 09/13/2024 12:55 PM DONOR SUPPORT TECHNICIAN - 09/13/2024 2:55 PM DONOR SUPPORT TECHNICIAN Surgery [facility] Operating Room [address] [place] [address] Jacinto Burnett MD LAPAROSCOPIC ASSISTED SALPINGECTOMY - VAGINAL vNOTES APPROACH 09/13/2024 3:03 PM DONOR SUPPORT TECHNICIAN Anesthesia Event [facility] Operating Room [address] [place] [address] Genia Delgado MD Wilkinson, Christina A., NP 09/13/2024 11:05 AM DONOR SUPPORT TECHNICIAN - 09/13/2024 7:59 PM DONOR SUPPORT TECHNICIAN Hospital Encounter [facility] Operating Room [address] [place] [address] Jacinto Burnett MD Admission for sterilization; Pelvic adhesions Discharge Disposition: Discharge to home or self care 09/12/2024 Telephone [facility] Obstetrics and Gynecology [address] [facility] 7th Floor [address] [place] [phone] vYonne Crocker CMA 08/10/2024 Telephone [facility] [address] [facility] 3rd Floor [address] [place] [phone] Gail Hartmann 07/28/2024 2:45 PM DONOR SUPPORT TECHNICIAN Office Visit [facility] [address] [facility] 3rd Floor [address] [place] [phone] Wen Campos MD Unwanted fertility (Primary Dx); Pelvic adhesions; Moderate episode of recurrent major depressive disorder (HCC); Type 1 diabetes mellitus with hyperglycemia (HCC) from Last 3 Months Allergies Active Allergy Reactions Criticality Noted Date Comments Casein Stomach upset Low 01/12/2018 Lactose Diarrhea Low 06/01/2019 Medications blood glucose diagnostic (glucose blood) strip 1 each by Not Applicable route 9 Active [facility] 0 Active Dexcom G7 Incubator Tender misc 4 Active glucagon 1 mg kit [...] Sensor device Use with the Dexcom G7 heel seat pounder to monitor blood glucose values continuously. Change every 10 days. 4 each 3 4 Active insulin syringe-needle U-100 (BD Insulin [...] laparoscopic bilateral salpingectomy. - Blood, procedure, and [place] Medicaid consents signed. Prep for case submitted [...] plan (select 1) [x] COH7 MFM / MFM Faculty Office Sites - Message Bailey Hernandez that patient delivered and to be reviewed at the weekly Fellow diabetes meeting for the next 4 weeks - message sent [] Prior to discharge, all patients should have endocrinology follow up scheduled within 1 month of delivery after which they will resume routine diabetes care - needs to set up f[facility] barrel [facility] # Anxiety/Depression: in therapy, on zoloft [...] # Disposition: Follow up task sent to [facility] scheduling pool. Desires discharge home today. Gallstones 01/20/2024 Overview (01/20/2024): Seen in [facility] on 12/17 with abdominal pain and RUQ US showed gallstones. We discussed avoiding fatty and fried foods to limit biliary colic. Assessment & Plan (02/06/2024 1:14 AM CDT): Seen in [facility] on 12/17 with abdominal pain and RUQ [...] 11/10/2023 Overview (07/25/2024): Care Dexcom Share code: [email or web address] T-connect (switched to control-IQ and sleep mode on 01/31 PM!) [email or web address]: [email or web address] Password: [email or web address] Current settings 07/25/2024 Work on timing boluses [...] A1C: 8.1% on 10/28 > 7.1% 01/19 [facility] Share code: [email or web address] T-connect (switched to control-IQ and sleep mode on 01/31 PM!) Username: [email or web address] Password: [email or web address] Current settings: 02/05/2024- T slim, sleep mode [...] trimester 11/10/2023 05/26/2024 Overview (04/27/2024): [x] Full [facility] Care; [] Blue Team- full transfer of care to [facility] as of 11/26/23, email sent to financial-joshuab [x]Red team Referring Provider: Leonor Huang [phone] [x] Dating Criteria: US 10/29/23 with JOSE [...] [] CBC/HIV/RPR/TSH with reflex/A1C: external lab, [facility] in [place]-we have attempted to get the results and [...] would like to attempt breast feeding. 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 Declines genetic or carrier screening. Reviewed contraceptive plan. Reports will have completed her family after this . Partner planning vasectomy. We reviewed options for contraception including LARCs and sterilization. Provided [email or web address] website. She is considering her options. Immunizations Immunization Administration Dates Next Due Tdap 03/02/2024 Social History Tobacco Use Types Packs/Day Years Used Date Smoking Tobacco: Every Day Cigarettes E-cigarettes Smokeless Tobacco: Never Tobacco Cessation:Ready to Q uit: Not Asked; Counseling Given: No Alcohol Use Standard Drinks/Week Comments Not Currently 0 (1 standard drink = 0.6 oz pur e alcohol) [facility] [employer] Limitedities Answer Date Recorded In the past 12 months has iPawn, MUBI, or water Geni threatened to shut off services in your [...] often do you attend chur ch or scientologist services? Never 04/30/2024 Do you belong to any clubs o r organizations such as episcopal groups, unions, fraternal or athletic groups, or [...] things needed for daily living? No 04/30/2024 [place] Depression Scale Answer Date Recorded [place] Depression Scale Total 15 06/16/2024 The thought [...] any time in the past 12 m [facility], were you homeless or living in a [...] on file Legal Sex Female 7:38 PM DONOR SUPPORT TECHNICIAN Gender Identity Not on file Sexual Orientation Not on file Last Filed Vital Signs Vital Sign Reading Time Taken Comments Blood Pressure 134/70 10/06/2024 2:07 PM DONOR SUPPORT TECHNICIAN Pulse 104 10/06/2024 2:07 PM DONOR SUPPORT TECHNICIAN Temperature 37 C (98.6 F) 09/13/2024 6:20 PM DONOR SUPPORT TECHNICIAN Respiratory Rate 18 10/06/2024 2:07 PM DONOR SUPPORT TECHNICIAN Oxygen Saturation 98% 10/06/2024 2:07 PM DONOR SUPPORT TECHNICIAN Inhaled Oxygen Concentration - - Weight 102.5 kg (226 lb) 10/06/2024 2:07 PM DONOR SUPPORT TECHNICIAN Height 172.7 cm (5' 8 ) 10/06/2024 2:07 PM DONOR SUPPORT TECHNICIAN Body Mass Index 34.36 10/06/2024 2:07 PM DONOR SUPPORT TECHNICIAN Plan of Treatment Not on file Procedures Procedure Name Priority Date/Time Associated Diagnosis Comments POCT GLUCOSE DEVICE Routine 09/13/2024 7 :32 PM DONOR SUPPORT TECHNICIAN POCT GLUCOSE DEVICE Routine 09/13/2024 6 :53 PM DONOR SUPPORT TECHNICIAN POCT GLUCOSE DEVICE Routine 09/13/2024 5 :40 PM DONOR SUPPORT TECHNICIAN POCT GLUCOSE DEVICE Routine 09/13/2024 4 :39 PM DONOR SUPPORT TECHNICIAN SURGICAL PATHOLOGY Routine 09/13/2024 4: 31 PM DONOR SUPPORT TECHNICIAN Admission for sterilization Pelvic adhesions POCT GLUCOSE DEVICE Routine 09/13/2024 3 :35 PM DONOR SUPPORT TECHNICIAN GA AN PROCEDURE PLACEHOLDER Routine 09/13/2024 3:25 PM DONOR SUPPORT TECHNICIAN GA AN EMERGENT ENDOTRACHEAL AIRWAY Routine 09/13/2024 3:25 PM DONOR SUPPORT TECHNICIAN LAPAROSCOPIC ASSISTED SALPINGECTOMY - VAGINAL vNOTES APPROACH 09/13/2024 3:08 PM DONOR SUPPORT TECHNICIAN Admission for sterilization Pelvic adhesions Case Notes 2/5 - Per Yvonne, case in depot for reschedule. BN POCT GLUCOSE DEVICE Routine 09/13/2024 2 :28 PM DONOR SUPPORT TECHNICIAN HEMOGLOBIN AND HEMATOCRIT STAT 09/13/2024 1:31 PM DONOR SUPPORT TECHNICIAN TYPE AND SCREEN STAT 09/13/2024 1:31 PM DONOR SUPPORT TECHNICIAN POCT GLUCOSE DEVICE Routine 09/13/2024 1 :25 PM DONOR SUPPORT TECHNICIAN POCT HCG, URINE Routine 09/13/2024 1:00 PM DONOR SUPPORT TECHNICIAN HEPATITIS C RNA, QUANTITATIVE, PCR Routine 09/12/2024 12:00 PM DONOR SUPPORT TECHNICIAN HEMOGLOBIN A1C Routine 04/30/2024 4:35 AM CDT EGFR STAT 04/29/2024 10:16 AM CDT SERUM LIPID PANEL Routine 09/21/2015 11: 19 AM DONOR SUPPORT TECHNICIAN from Last 3 Months or Most Recently Relevant to Health Maintenance Results * (ABNORMAL) POCT glucose (09/13/2024 7:32 PM DONOR SUPPORT TECHNICIAN) Glucose, POC 279(H) 70 - 199 mg/dL Blood 09/13/2024 7:32 PM DONOR SUPPORT TECHNICIAN 09/13/2024 7:32 PM DONOR SUPPORT TECHNICIAN us Jacinto Burnett MD LAB POCT ORDERABLES - HAYDEN CE Final Result [facility] Department of [employer] [place], [place] [id number] * (ABNORMAL) POCT glucose (09/13/2024 6:53 PM DONOR SUPPORT TECHNICIAN) Glucose, POC 284(H) 70 - 199 mg/dL Blood 09/13/2024 6:53 PM DONOR SUPPORT TECHNICIAN 09/13/2024 6:53 PM DONOR SUPPORT TECHNICIAN us Jacinto Burnett MD LAB POCT ORDERABLES - HAYDEN CE Final Result [facility] [employer] [place] [place] [address] * (ABNORMAL) POCT glucose (09/13/2024 5:40 PM DONOR SUPPORT TECHNICIAN) Glucose, POC 266(H) 70 - 199 mg/dL Blood 09/13/2024 5:40 PM DONOR SUPPORT TECHNICIAN 09/13/2024 5:40 PM DONOR SUPPORT TECHNICIAN Jacinto Burnett MD LAB POCT ORDERABLES - HAYDEN CE Final Result Performing Organization Address [facility] Co de Phone Number [facility] Department [place] [address] * POCT glucose (09/13/2024 4:39 PM DONOR SUPPORT TECHNICIAN) Glucose, POC 186 70 - 199 mg/dL Blood 09/13/2024 4:39 PM DONOR SUPPORT TECHNICIAN 09/13/2024 4:39 PM DONOR SUPPORT TECHNICIAN Jacinto Burnett MD LAB POCT ORDERABLES - HAYDEN CE Final Result Performing Organization Address [facility] de Phone Number [facility] Department [place] [address] * Surgical pathology (09/13/2024 4:31 PM DONOR SUPPORT TECHNICIAN) Tissue (Fallopian tube, sterilization) 09/13/2024 4:31 PM DONOR SUPPORT TECHNICIAN Narrative PATHOLOGY [facility] - 09/20/2024 3:56 PM DONOR SUPPORT TECHNICIAN EPIC results best viewed via link to PDF [facility] Erica Paredes Laboratory [place] [address] Note to Patients: This report may contain [...] Gender: F : 1995 (Age: 29) Address: [address] [place] [address] [facility] #: [id number] Taken:09/13/2024 Received:09/14/2024 Reported: 09/20/2024 Patient Type: [facility] Service: Gynecology Location: [facility] Physician(s): Salma Paredes M.D. Diagnosis: Fallopian tubes, bilateral, salpingectomy - Fallopian tubes with no histopathologic abnormality (complete cross sections identified bilaterally) - Paratubal cyst jebe/09/16/2024 16:12 By this signature, I attest that the above diagnosis is based upon my personal examination of the slides(and/or other material indicated in the diagnosis). Yoa Mackenzie M.D., Ph.D. Report Electronically Reviewed and [...] the longer tube (1.4 cm in diameter). Medical Assistant Secretary sections are submitted as follows: A1 [facility] fallopian tube including fimbriae A2 Longer fallopian tube including fimbriae and cyst Jar 1. bao2/09/14/2024 10:53 PA(s): VLADISLAV Carmona (JEREMIAS)CM By this signature, I attest that the above diagnosis is based upon my personal examination of the slides(and/or other material). Addenda/Procedures The performance characteristics of some immunohistochemical stains, fluorescence in-situ hybridization tests and immunophenotyping by flow cytometry cited in this report (if any) were determined by the Surgical Pathology and Flow Cytometry Departments at [facility] as part of an ongoing water quality specialist program and in compliance with federally mandated [...] Surgical Pathology and Flow Cytometry Departments of [facility]. It has not been cleared or approved by the U. S. Food and Drug Administration. IMAGES AND SCANNED DOCUMENTS, IF INCLUDED, ONLY VIEWABLE IN PDF VERSION OF REPORT Jacinto Burnett MD LAB PATHOLOGY ORDERABLES F inal Result Performing Organization Address [facility]/ZIP Co de Phone Number PATHOLOGY [facility] 3rd Floor [place], [place] [phone] * POCT glucose (09/13/2024 3:35 PM DONOR SUPPORT TECHNICIAN) Glucose, POC 153 70 - 199 mg/dL Blood 09/13/2024 3:35 PM DONOR SUPPORT TECHNICIAN 09/13/2024 3:35 PM DONOR SUPPORT TECHNICIAN Jacitno Burnett MD LAB POCT ORDERABLES - HAYDEN CE Final Result Performing Organization Address [facility] Co de Phone Number [facility] Department [place] [address] * GA AN EMERGENT ENDOTRACHEAL AIRWAY, GA AN PROCEDURE PLACEHOLDER (09/13/2024 3:25 PM DONOR SUPPORT TECHNICIAN) Narrative Alek Rios CRNA - 09/13/2024 3:25 PM DONOR SUPPORT TECHNICIAN Alek Rios CRNA 09/13/2024 3:26 PM Airway Patient location: OR Urgency: emergent Indications for airway management: anesthesia and airway protection Difficult airway: no Staff: Supervising provider: Genia Delgado MD Placed by: MATCH MARKER: Alek Rios CRNA Emergent airway documentation: Patient [...] Result * POCT glucose (09/13/2024 2:28 PM DONOR SUPPORT TECHNICIAN) Glucose, POC 133 70 - 199 mg/dL Blood 09/13/2024 2:28 PM DONOR SUPPORT TECHNICIAN 09/13/2024 2:28 PM DONOR SUPPORT TECHNICIAN Jacinto Burnett MD LAB POCT ORDERABLES - HAYDEN CE Final Result [facility] Department [place] [address] * Hemoglobin and hematocrit (09/13/2024 1:31 PM DONOR SUPPORT TECHNICIAN) Hgb 12.5 11.9 - 15.5 g/dL Hct 37.1 35.6 - 45.5 % [facility] Blood 09/13/2024 1:31 PM DONOR SUPPORT TECHNICIAN 09/13/2024 1:55 PM DONOR SUPPORT TECHNICIAN Jacinto Burnett MD LAB BLOOD ORDERABLES Final Result Performing Organization Address [facility] Co de Phone Number [facility] [place] [address] * Type and screen (09/13/2024 1:31 PM DONOR SUPPORT TECHNICIAN) Ortiz, indirect Negative ABO Rh A Positive [facility] Blood 09/13/2024 1:31 PM DONOR SUPPORT TECHNICIAN 09/13/2024 1:43 PM DONOR SUPPORT TECHNICIAN Narrative [facility] - 09/13/2024 3:00 PM DONOR SUPPORT TECHNICIAN Has the patient had Daratumumab or Isatuximab in the past 6 months?->Unknown Jacinto Burnett MD LAB BLOOD BANK TEST ORDERA BLES Final Result Performing Organization Address [facility] Co de Phone Number [facility] [place] [address] * POCT glucose (09/13/2024 1:25 PM DONOR SUPPORT TECHNICIAN) Pathologist [facility] Glucose, POC 124 70 - 199 mg/dL Blood 09/13/2024 1:25 PM DONOR SUPPORT TECHNICIAN 09/13/2024 1:25 PM DONOR SUPPORT TECHNICIAN Jacinto Burnett MD LAB POCT ORDERABLES - HAYDEN CE Final Result Performing Organization Address [facility] Co de Phone Number [facility] [place] [address] * POCT hCG, urine (09/13/2024 1:00 PM DONOR SUPPORT TECHNICIAN) HCG, ur, POC Negative Negative Lot Number [id number] QC Backgroud Clear Acceptable QC Control Line Acceptable Urine 09/13/2024 1:00 PM DONOR SUPPORT TECHNICIAN Jacinto Burnett MD POINT OF CARE TEST ORDERAB LES Final Result * Hepatitis C (HCV) RNA PCR, quantitative Blood (09/12/2024 12:00 PM DONOR SUPPORT TECHNICIAN) [facility] HCV RNA result Not Detected [facility] Comment: The quantifiable range of this assay is 15 IU/mL to 100,000,000 IU/mL (1.18 log IU/mL to 8.00 log IU/mL). Testing was performed by the TRACEY 6800 HCV Test ([employer] Testing performed at [facility] Current Interpretive Data was last revised on 2021 Testing performed by: [facility], [address] [facility], [place]., [address] Blood 09/12/2024 12:0 0 PM DONOR SUPPORT TECHNICIAN 09/12/2024 4:24 PM DONOR SUPPORT TECHNICIAN Martha Weston MD LAB MICROBIOLOGY - GENERAL ORDERABLES Final Result Performing Organization Address City/[facility]/ZIP Co de Phone Number [facility] [address] [facility] Department [place] [address] [facility] * (ABNORMAL) Hemoglobin A1c (04/30/2024 4:35 AM CDT) [facility] Hgb A1C 7.1(H) 4.0 - 5.6 % Estimated Average Glucose 157 mg/dL [facility] Comment: The ADA recommends reporting an estimated Average Glucose (eAG) with all Hemoglobin A1c results using the equation derived from a study of 507 normal and diabetic adults. Minority populations were underrepresented and children were not included. (Diabetes Care 2020; 43(S1): S66-S76). The eAG is not equivalent to a fasting glucose. Blood 04/30/2024 4:35 AM CDT 04/30/2024 4:54 AM CDT Amee Bliss MD LAB BLOOD ORDERAB LES Final Result [facility] Department of [employer] [place] [address] * eGFR (04/29/2024 10:16 AM CDT) eGFR [...] of Race in Diagnosing Kidney Disease, JASN 2020). The CKD-EPI equation should not be used for patients with unstable renal function and has not been validated in children and those over 70. Current interpretive data was last reviewed 2021. Blood 04/29/2024 10:1 6 AM CDT 04/29/2024 10:27 AM CDT us Mica Chary Gray MD LAB BLOOD HUMBERTO BARROW Final Result [facility] Department [place] [address] * Serum lipid panel (09/21/2015 11:19 AM DONOR SUPPORT TECHNICIAN) Cholesterol 177 <=199 mg/dl HISTORICAL RESULTS Comment: [...] on 2013. Serum 09/21/2015 11:1 9 AM DONOR SUPPORT TECHNICIAN us Historical Provider LAB BLOOD ORDERABLES Korin ochoa Result HISTORICAL RESULTS from Last 3 Months or Most Recently Relevant to Health Maintenance Insurance [facility] [facility] [employer] [facility] HMO/PPO Address: [address] [address] [place] [address] [employer] [facility] [facility] [employer] [facility] HMO/PPO Address: [address] [address] [place] [address] Advance Directives For more information, please contact: [phone] * Full Code (Latest Code Status on File) Date Activated Date Inactivated Comments 04/29/2024 3:15 PM 05/03/2024 9:43 PM * Full Code Date Activated Date Inactivated Comments 04/29/2024 11:06 AM 04/29/2024 3:15 PM Full CPR in case of cardiopulmonary arrest * Full Code Date Activated Date Inactivated Comments 01/29/2024 6:31 PM 01/30/2024 4:14 PM Care Teams Brick Molder Hand Relationship Specialty Start Date End Date Moody Beltran MD [address] [place] [address] PCP - General Family Medicine 10/31/22
--- OUTSIDE RECORDS SUMMARY | 2024-10-23 09:19 | XMS_ITS | Encounter Summary ---
Author Organization [facility] Address [address] [place] [address] Phone Care Team Providers Care Vocational Director Name Role Phone Moody Beltran MD Primary Care Provider [phone] Jai Naidu MD Unavailable [phone] Rachel Sommer MD Unavailable Reason for Visit * Reason Comments Medication Refill Encounter Details Date Type Department Care Team (Late st Contact Info) Description 10/23/2021 [facility]ill [facility] [address] [place] [id number] Anastacio James, CONGRESSIONAL DISTRICT AIDE, DRIER ATTENDANT [address] [address] Medication Refill Social History Tobacco Use Types [...] Exposure Response Date Recorded In the last month, have you been in contact with someone who was confirmed or suspected to have Coronavirus / COVID-19? No / Unsure 10/07/2021 9:45 AM DOPSTER documented as of this encounter Miscellaneous Notes * Telephone Encounter - Regla Schultz RN - 10/24/2021 10:16 AM CDT Medication failed the protocol, provider to review and approve the medication order if appropriate. Requested Prescriptions Pending Prescriptions Disp Refills OneTouch Verio Strip [Pharmacy Med Name: ONE TOUCH VERIO TEST STRIP] 250 Strip 11 Sig: USE 1 STRIP 8 TIMES DAILY WHILE AWAKE Diabetic Supplies Protocol Failed - 10/23/2021 2:16 PM Failed - Active on medication list Passed - Visit with relevant provider in past 6 months Recent Visits Date Type Provider Dept 09/30/21 Office Visit Anastacio James APRN, CNP [facility] 08/22/21 Telemedicine Moody Beltran MD [facility] 05/21/21 Office Visit Moody Beltran MD [facility] Showing recent visits within past 182 days and meeting all other requirements Future Appointments No visits were found meeting these conditions. Showing future appointments within next 90 days and meeting all other requirements documented in this encounter Plan of Treatment Upcoming Encounters Date Type Department Care Team (Latest Contact Info) Description 11/16/2024 11:15 AM CDT Outpatient Clinic [facility] [address] [place] [phone] Val Pemberton, ADITI [address] [place] [address] Discharge Disposition: Discharged to home or Selfcare 12/07/2024 11:30 AM CDT Office Visit [facility] - Endocrinology - [place] [address] [place] [phone] Rachel Sommer MD [address] [phone] documented as of this encounter Visit Diagnoses Not on filedocumented in this encounter Care Teams Vocational Director Relationship Specialty Start Date End Date Moody Beltran MD #2 [facility] [address] [place] [address] PCP - General Family Medicine 02/13/21 Jai Naidu MD [address] [phone] Consulting Physician General Surgery 10/11/21 Rachel Sommer MD #[address] [phone] Consulting Physician Endocrinology 01/30/22 documented as of this encounter
--- OUTSIDE RECORDS SUMMARY | 2024-10-23 09:19 | XMS_ITS | Encounter Summary ---
Author Organization [facility] Address [address] [place] [address] Phone Care Team Providers Care Dirt Shoveler Name Role Phone Moody Beltran MD Primary Care Provider [phone] Jai Naidu MD Unavailable [phone] Rachel Sommer MD Unavailable Reason for Visit * Reason Comments Medication Refill Encounter Details Date Type Department Care Team (Late st Contact Info) Description 03/17/2021 Refill [facility] [address] [place] [phone] Anastacio James, BORE MILL OPERATOR, SPECIAL FORCES SENIOR SERGEANT [address] [address] Medication Refill Social History Tobacco Use Types [...] have Coronavirus / COVID-19? No / Unsure 02/18/2021 9:27 AM CDT documented as of this encounter Miscellaneous Notes * Telephone Encounter - Regla Schultz RN - 03/18/2021 12:23 PM CDT Medication failed the protocol, provider to review and approve the medication order if appropriate. Requested Prescriptions Pending Prescriptions Disp Refills terbinafine (LamISIL) 250 MG Tablet [Pharmacy Med Name: TERBINAFINE HCL 250 MG TABLET] 30 Tablet 2 Sig: TAKE 1 TABLET BY MOUTH EVERY DAY [facility] Off-Protocol Failed - 03/17/2021 11:51 AM Failed - Medication not assigned to a protocol, review manually. Passed - Valid encounter within last 12 months Past Office Visits Recent Outpatient Visits 4 weeks ago Type 1 diabetes mellitus with hyperglycemia (HCC) [facility] Anastacio James APN, RUFINO Upcoming Appointments Future Appointments In 3 days Lab, [facility] PHYSICIAN [facility], [facility] In 2 months Moody Beltran MD [facility] INDUSTRIAL ENGINEERING PROFESSOR - Recent and Past Visits Recent Visits Date Type Provider Dept 02/18/21 Office Visit Anastacio James APN, RUFINO [facility] Showing recent visits within past 460 days with a meds authorizing provider and meeting all other requirements Future Appointments Date Type Provider Dept 05/21/21 Appointment Moody Beltran MD [facility] Showing future appointments within next 90 days with a meds authorizing provider and meeting all other requirements documented in this encounter Plan of Treatment Upcoming Encounters Date Type Department Care Team (Latest Contact Info) Description 11/16/2024 11:15 AM CDT Outpatient Clinic Visit [facility] [address] [place] [address] Val Pemberton, COMPLAINT INSPECTOR [address] [place] [address] Discharge Disposition: Discharged to home or Selfcare 12/07/2024 11:30 AM CDT Office Visit [facility] - [facility] - [place] [address] [place] [address] Rachel [facility]mer MD [facility] [address] [place] [address] documented as of this encounter Visit Diagnoses Diagnosis Onychomycosis Dermatophytosis of nail documented in this encounter Care Teams Dirt Shoveler Relationship Specialty Start Date End Date Moody Beltran MD #[address] [address] PCP - General Family Medicine 02/13/21 Jai Naidu MD #[address] [phone] Consulting Physician General Surgery 10/11/21 Rachel Sommer MD #[address] [phone] Consulting Physician Endocrinology 01/30/22 documented as of this encounter
--- OUTSIDE RECORDS SUMMARY | 2024-10-23 09:19 | XMS_ITS | Encounter Summary ---
Author Organization [facility] Address [address] [place] [address] Care Team Providers Care Electrician Shop Name Role Phone [facility] Primary Care Pro vider Liliana Odom [facility] Primary Care Provi evelina [facility] Primary Care Pro vider Liliana Odom [facility] Primary Care Provi evelina Brandy Smiley MD Unavailable Reason for Visit * Reason Onset Date Comments Pre Appointment Management 11/16/2019 Encounter Details Date Type Department Care Team (Late st Contact Info) Description 11/16/2019 Telephone [facility]/ EVALUATION UNIT [address] [place] [address] Mauro Gaston RDMS Pre Appointment Management Social History Tobacco Use Types Packs/Day Years Used Date Smoking Tobacco: Former Smokeless Tobacco: Never Alcohol Use Standard Drinks/Week Comments Never 0 (1 standard drink = 0.6 oz pur e alcohol) AUDIT-C Answer Date Recorded Frequency of Alcohol Consumption Never 06/01/2019 Average Number of Drinks Not on file 019 Frequency of Binge Drinking Not on file 05/05 Comments Yes Sex and Gender Information Value Date Recorded Sex Assigned at Not on file Gender Identity Not on file Sexual Orientation Not on file COVID-19 Exposure Response Date Recorded In the last month, have you been in contact with someone who was confirmed or suspected to have Coronavirus / COVID-19? No / Unsure 11/15/2019 2:06 PM CDT documented as of this encounter Miscellaneous Notes * Telephone Encounter - Mauro Gaston RDMS - 11/16/2019 1:45 PM CDT Message left on voicemail informing patient of no visitor policy for outpatient appointments due toCOVID 19 pandemic. Patient also instructed to call before coming to appointment if she has fever, cough, shortness of breath, nausea, vomiting, diarrhea, loss of smell or taste, or has been around anyone with these symptoms. Also notified her we will be doing screening at the door. Left callback [phone]. documented in this encounter Plan of Treatment Not on file documented as of this encounter Visit Diagnoses Not on filedocumented in this encounter Care Teams Electrician Shop Relationship Specialty Start Date End Date [facility] [address] [place] [address] PCP - General 09/15/18 11/18/19 Liliana Odom APRN-RIFFLER TENDER [address] [place] [address] PCP - General Nurse Practitioner Family 11/19/1904/04 [facility] [address] [place] [address] PCP - General 04/28/20 05/23/20 Liliana Odom APRN-RIFFLER TENDER [address] [place] [address] PCP - General 05/24/20 Brandy Smiley MD [address] [place] [address] 05/24/20 documented as of this encounter
--- OUTSIDE RECORDS SUMMARY | 2024-10-23 09:19 | XMS_ITS | Clinical Summary ---
Author Organization [facility] Address [address] [place] [address] Care Team Providers Care Shift Nurse Manager Name Role Phone Liliana Odom APRN-[facility] Primary Care Provi evelina Brandy Smiley MD Unavailable Source Comments [facility],non-owned Affiliates and Associated Physician Practices is amultiple site organization consisting of ambulatory clinics and hospital sitesin [place], [place], [place] and [place]. This disclosure is being madepursuant to the Care Everywhere program and may not contain all information available regarding this patient. Last updated 18.[facility] Allergies No known active allergies Medications * Be aware that medications may not be up to date on this document. Alwaysverify current medications with the patient. Medication Sig Dispensed Refills Start Date End Date Status One Touch Delica Lancets Use 8 times daily while awake 200 Each 06/01/2019 Active blood glucose (ONETOUCH VERIO) test strip Use 1 strip 8 times daily while awake 250 strip 11 06/01/2019 Active Additional Information Patient taking differently: (No dose reported), Does not apply 8 TIMES DAILY WHILE AWAKE, Reported on 08/12/2023 Continuous Blood Gluc Wheel Fitter (DEXCOM G5 MOBILE PLYWOOD STOCK GRADER) [place] Use 1 Each as directed Use IF not using phone 1 device 1 08/18/2019 Active Continuous Blood Gluc Sensor (DEXCOM G5 MOB/G4 PLAT SENSOR) [facility] Use 1 Each as directed Replace sensor every 10 days. 3 Each 5 08/18/2019 Active insulin lispro (HUMALOG;ADMELOG) 100 UNIT/ML pen Inject 50-70 Units subcutaneously as directed MN to 12pm and 5p to MN: take 1 unit for every 7 grams of carbohydrate. 12p to 5p take 1 unit for every 4 grams of carbohydrate. GIve correction dose: MN - 12p 1 extra unit for every 20 points that premeal glucose is 100 or above. 12a - 12p - GIve 1 unit for every 20 points glucose is above 160 mg/dl. 8 Pen 5 08/31/2019 Active insulin lispro (HUMALOG) 100 UNIT/ML vial Inject 80 Units subcutaneously as directed Per insulin pump as directed to meet increasing insulin needs during . 3 vial 4 09/20/2019 Active docusate sodium (COLACE) 100 MG capsule Take 1 capsule by mouth 2 times daily 60 capsule 1 12/06/2019 Active polyethylene glycol 3350 (Miralax) 17 g packet Take 17 (seventeen) g by mouth once daily 30 packet 07/21/2023 Active hydrOXYzine HCl (Atarax) 50 MG tablet Take 1 (one) tablet by mouth 3 times daily 90 tablet 07/24/2023 Active cyclobenzaprine (Flexeril) 10 MG tablet Take 1 (one) tablet by mouth 3 times daily as needed for Muscle Spasms 60 tablet 07/29/2023 Active cyclobenzaprine (Flexeril) 10 MG tablet Take 0.5 (one-half) tablet by mouth 3 times daily as needed for Muscle Spasms 15 tablet 08/12/2023 Active gabapentin (Neurontin) 300 MG capsule Take 3 (three) capsules by mouth 3 times daily for 7 days 63 capsule 09/09/2023 Active Active Problems Patient Care Coordination No te Formatting of this note migh t be different from the original. Diaper bank form completed. Diapers provided at 33 weeks on 11/08/19. Patient did not get screening echocardiogram (maternal T1 Diabetes). If the heel molder evaluating the after has concerns, please feel free to discuss with a pediatric hospitalist at [facility] using the [facility] ( ). 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 Followed by [facility] during childhood. No routine exercise. Symptomatic in the 80s. Has glucagon. HgbA1c 7.7 (06/16 - 12 wks) HgbA1c 6.8 (09/27) Eye exam: last exam several years ago 24 hr urine: Detailed anatomy screen: echocardiogram 22-28 weeks: Assessment & Plan (08/31/2019 3:22 PM I O PSYCHOLOGIST): Global fasting hyperglycemia noted on glucose logs. Today with increase in urine glucose and measured fasting value in the office significantly elevated. Maternal Medicine recommendations: 1. Maternal- Medicine to comanage diabetes 1. your office may want to consider the option of transferring full care to Maternal- Medicine 2. We recommend getting diabetic care from only one provider group during the 2. Perform 7 blood glucose measurements daily 3. recommended insulin changes 1. Basaglar 26 units a.m./28 units p.m. 2. insulin to carb ratio 1. from midnight to noon remains 1 unit for every 7 g of carbohydrates 2. from noon to 5:00 p.m. is 1 unit for every 4 g of carbohydrates 3. from 5 pm to midnight 1 unit for every 7 g of carbohydrates 3. Correction 1. for midnight to 12:00 p.m. start correcting at at a blood glucose of 160, give 1 unit for every 20 mg above that value 2. from noon to 5:00 p.m. give an additional 1 unit for every 20 mg/dL above a pre meal value of 100 3. between 5:00 p.m. and midnight 1 unit for every 20 mg/dL above 100 4. schedule year dilated eye exam 5. Contrinue Aspirin 6. orders given again to baseline laboratory testing performed [CBC, CMP, hemoglobin A1c, TSH with reflex T4] including a urinalysis and urine culture due to moderate blood noted on urine dipstick (the latter was demonstrated at the last consultation session but is not present today) 7. Our Diabetic Nurse Educator is working to obtain an insulin pump and a continuous glucose sensor 8. Hemoglobin A1c every trimester 9. Serial growth after 20 weeks 10. echocardiogram between 22-28 weeks--our office will assist with arrangements 11. Twice weekly nonstress testing starting at 32 weeks 12. Delivery initiation at 39 weeks 13. Insulin drip in labor 14. Recommend Assessment & Plan (08/17/2019 4:26 PM I O PSYCHOLOGIST): First follow-up consultation visit in two months. Patient recorded logs are incomplete and without mealtime context, therefore difficult to interpret. Some hypoglycemic recordings but most values are hyperglycemic. Today urine dipstick with improvement in glucose as well as no presence of ketones, which is reassuring. Interval hemoglobin A1c is reduced compared to pre value. Did not perform baseline studies as previously requested. Ultrasound today without signs of major malformations which is reassuring. Maternal Medicine recommendations: 1. Maternal- Medicine to comanage diabetes 1. We recommend getting diabetic care from only one provider group during the 2. Perform 7 blood glucose measurements daily 3. changes made to Basaglar and insulin to carb ratio--see breastfeeding educator note; written instructions given to patient 4. dilated eye exam 5. Aspirin for preeclampsia after 12 weeks- 6. orders given again to baseline laboratory testing performed [CBC, CMP, hemoglobin A1c, TSH with reflex T4] including a urinalysis and urine culture due to moderate blood noted on urine dipstick 7. offered to give a letter for work to take breaks to check blood glucose--need declined by the patient 8. Our Diabetic Nurse Educator is sending a request to have an insulin pump and a continuous glucose sensor provided to the patient 9. Hemoglobin A1c every trimester 10. Serial growth after 20 weeks 11. echocardiogram between 22-28 weeks 12. Twice weekly nonstress testing starting at 32 weeks 13. Delivery initiation at 39 weeks 14. Insulin drip in labor 15. Recommend Assessment & Plan (06/08/2019 4:41 PM I O PSYCHOLOGIST): has prolonged periods of time in between meals. Some late dinners with significant hyperglycemia. Fasting values generally appear around noon time. One hypoglycemic value of around noon time. Appears to have evening insulin insensitivity, yet is more sensitive after midnight. Increased glucose and ketones. Plan: Maternal- Medicine to [facility] diabetes Perform 7 blood glucose measurements daily continue Basaglar 26 units q.h.s. Time Basal Sens. I/C Target 0000 1:50 1:10 110 0400 1:40 1:7 110 1400 1:35 1:6 110 dilated eye exam Aspirin for preeclampsia after 12 weeks--prescription provided Completion of first-trimester anatomic survey in two weeks Orders given for the following tests: CBC, CMP, hemoglobin A1c, TSH with reflex T4, 24 urine for total protein Our Diabetic Nurse Educator is sending a request to have an insulin pump and/or a continuous glucose sensor provided to the patient Hemoglobin A1c every trimester Serial growth after 20 weeks echocardiogram between 22-28 weeks Twice weekly nonstress testing starting at 32 weeks Delivery initiation at 39 weeks Insulin drip in labor Recommend Assessment & Plan (06/01/2019 5:34 PM CDT): No significant ketones today. Random blood glucose today 170. Patient seems reliable to have aggressive changes to insulin on outpatient basis. Presumed class D diabetic--patient with no personal history of end organ dysfunction. Unknown Anum conception glucose control. Plan: Maternal- Medicine to [facility] Perform 7 blood glucose measurements daily new Insulin recommendations: 1. sensitivity 1:40 over 110 2. I:C 1:7 during daytime and 1:10 at nighttime 3. Basaglar 26 units Schedule eye exam dilated eye exam Aspirin for preeclampsia after 12 weeks--prescription provided Orders given for the following tests: CBC, CMP, hemoglobin A1c, TSH with reflex T4, 24 urine for total protein Our Diabetic Nurse Educator will investigate whether or not [employer] insurance would approved an insulin pump and/or a continuous glucose sensor Hemoglobin A1c every trimester Serial growth after 20 weeks echocardiogram between 22-28 weeks Twice weekly nonstress testing starting at 32 weeks Delivery initiation at 39 weeks Insulin drip in labor Recommend Atypical squamous cell schmitt es of undetermined significance (ASCUS) on vaginal cytology 03/29/2019 Overview (10/25/2019): Will need routine screening. Repeat pap smear cytology in 3 years or co-testing in 5 years. Migraines 04/27/2018 Depression with anxiety Overview (08/31/2019): Previously on Wellbutrin Assessment & Plan (08/31/2019 3:19 PM I O PSYCHOLOGIST): Mood appears acceptable today. Remains at risk for mood deterioration Maternal Medicine recommendations: 1. Encouraged maintaining 1st consultation with a mental health provider 2. reassess mood at visits Assessment & Plan (08/17/2019 4:24 PM I O PSYCHOLOGIST): Reports that her mood is okay. 1. Encouraged maintaining 1st consultation with a mental health provider 2. reassess mood at visits Assessment & Plan (06/08/2019 4:33 PM I O PSYCHOLOGIST): [place] depression Scale score 10/30. Previously had support from a mental health professional, whose contact information she no longer has. Currently does not want medication management. Recommend reassessment of mood a visits and consultations Our office will try to assist Mary with a referral to mental health specialist Assessment & Plan (06/01/2019 5:34 PM CDT): [place] depression Scale score in the range of active episode of major depression. Warrants re-evaluation of mood visits Referral being arrange for counseling Resolved Problems Problem Noted Date Diagnosed Date Resolved Date Nontraumatic compartment syn drome of left lower extremity 07/05/2023 07/21/2023 Polyhydramnios, antepartum complication 11/23/2019 07/21/2023 Overview (11/23/2019): BHAVIN 40 Threatened labor, third trimester 11/19/2019 11/19/2019 Low lying placenta, antepartum 08/31/2019 11/23/2019 Assessment & Plan (08/31/2019 3:16 PM I O PSYCHOLOGIST): Maternal Medicine recommendations: 1. re-evaluate placentation in two weeks Maternal obesity affecting p regnancy, antepartum 07/21/2023 care following delivery 07/21/2023 Acute blood loss as cause of postoperative anemia 07/21/2023 Immunizations Name Administration Dates Next Due INFLUENZA VACCINE 05/10/2013 MMR 12/02/2019(Deferred: See Comment s - immune) TDAP (7yrs+) 12/02/2019(Deferred: See Comment s),11/08/2019,05/10/2013 Family History Medical History Relation Name Comments Autism Spectrum Disorder Brother Diabetes - Type 2 Father Diabetes - Type 1 Maternal Grandmother Diabetes - Type 2 Mother Relation Name Status Comments Brother Father Maternal Grandmother Mother Social History Tobacco Use Types Packs/Day Years Used Date Smoking Tobacco: Former Smokeless Tobacco: Never Tobacco Cessation:Counseling Given: Not Answered Alcohol Use Standard Drinks/Week Comments Never 0 (1 standard drink = 0.6 oz pur e alcohol) AUDIT-C Answer Date Recorded Q1: How often do you have a drink containing alc ohol? 2-4 times a month 07/22/2023 Q2: How many drinks containi ng alcohol do you have on a typical day when you are drinking? 7 to 9 07/22/2023 Q3: How often do you have si x or more drinks on one occasion? Monthly 07/22/2023 Overall Financial Resource Strain (CARDIA) Answe r Date Recorded How hard is it for you to pa y for the very basics like food, housing, medical care, and heating? Not very hard 07/06/2023 [facility] Occupat ional Health - Occupational Stress Questionnaire Answer Date Recorded Do you feel stress - tense, restless, nervous, or anxious, or unable to sleep at night because your mind is troubled all the time - these days? Only a little 07/06/2023 Hunger Vital Sign Answer Date Recorded Within the past 12 months, y ou worried that your food would run out before you got the money to buy more. Sometimes true Within the past 12 months, t he food you bought just didn't last and you didn't have money to get more. Sometimes true 11/2022 PRAPARE - Transportation Answer Date Re corded In the past 12 months, has l ack of transportation kept you from medical appointments or from getting medications? No 11/2022 In the past 12 months, has l ack of transportation kept you from meetings, work, or from getting things needed for daily living? No 07/06/2023 Housing Stability Vital Sign Answer Peterson e Recorded In the last 12 months, was t here a time when you were not able to pay the mortgage or rent on time? No 07/06/2023 In the last 12 months, how many places have you lived? 1 07/06/2023 In the last 12 months, was t here a time when you did not have a steady place to sleep or slept in a [place] health care facility (including now)? No 07/06/2023 Housing Stability Vital Sign Answer Peterson e Recorded In the last 12 months, was t here a time when you were not able to pay the mortgage or rent on time? No 07/06/2023 Number of Times Moved in the Last Year Not on fi le 07/06/2023 Homeless in the Last Year Not on file 2022 Sex and Gender Information Value Date Recorded Sex Assigned at Not on file Gender Identity Not on file Sexual Orientation Not on file Last Filed Vital Signs Vital Sign Reading Time Taken Comments Blood Pressure 121/84 09/09/2023 1:26 PM I O PSYCHOLOGIST Pulse 100 09/09/2023 1:26 PM I O PSYCHOLOGIST Temperature 36.2 C (97.2 F) 09/09/2023 1:26 PM I O PSYCHOLOGIST Respiratory Rate 18 08/03/2023 5:18 PM I O PSYCHOLOGIST Oxygen Saturation 99% 09/09/2023 1:26 PM I O PSYCHOLOGIST Inhaled Oxygen Concentration 21% 07/18/2023 1 2:06 AM I O PSYCHOLOGIST Weight 89.8 kg (198 lb) 09/09/2023 1:26 PM I O PSYCHOLOGIST Height 172.7 cm (5' 8 ) 09/09/2023 1:26 PM I O PSYCHOLOGIST Body Mass Index 30.11 09/09/2023 1:26 PM I O PSYCHOLOGIST Plan of Treatment Health Maintenance Due Date Last Done Comments HEPATITIS B VACCINE (1 of 3 - 19+ 3-dose series) 2015 PNEUMOCOCCAL VACCINE (1 of 2 - PCV) 2015 PAP SMEAR 03/22/2022 03/22/2019 DIABETES RETINOPATHY SCREENING 07/06/2023 DIABETES-FOOT EXAM WITH MONOFILAMENT 07/06/2023 DIABETES-HGB A1C 10/02/2023 04/03/2023, , 03/18/2019, Additional history exists COVID-19 VACCINE ( - season) 2024 INFLUENZA VACCINE (#1) 2024 06/06/2014, 2012 DEPRESSION SCREENING 08/03/2024 DIABETES - URINE PROTEIN SCREENING 08/03/2024 DIABETES-SERUM CREATININE 08/03/20242023, 07/24/2023, 07/23/2023, Additional history exists DTAP/TDAP/TD VACCINES (3 - Td or Tdap) 11/07/2029 11/08/2019, 05/10/2013 ZOSTER VACCINE (1 of 2) 2046 HEPATITIS C SCREENING Completed 07/05/2023 HIV SCREENING Completed 07/05/2023, 09/27/2019 HIB VACCINE Aged Out No longer eligi ble based on patient's age to complete this topic HPV VACCINE Aged Out No longer eligi ble based on patient's age to complete this topic MENINGOCOCCAL (Group B) VACCINE SHARED DECISION-MAKING Aged Out No longer eligible based on patient's age to complete this topic MENINGOCOCCAL GROUPS A/C/Y/W VACCINE Aged Out No longer eligible based on patient's age to complete this topic Procedures Procedure Name Priority Date/Time Associated Diagnosis Comments COMPREHENSIVE METABOLIC PANEL STAT 08/03/2023 6:32 PM I O PSYCHOLOGIST HEPATITIS C AB SCREEN RFLX NAAT QUANT STAT 07/05/2023 8:09 PM I O PSYCHOLOGIST HIV-1 HIV-2 ANTIBODY + HIV P24 AG PANEL STAT 07/05/2023 8:09 PM I O PSYCHOLOGIST HEMOGLOBIN A1C Routine 09/27/2019 4:33 PM I O PSYCHOLOGIST , unspecified gestational age PAP LB RFLX HPV ASCU Routine 03/22/2019 11:41 AM CDT Well woman exam from Last 3 Months or Most Recently Relevant to Health Maintenance Results * (ABNORMAL) COMPREHENSIVE METABOLIC PANEL (08/03/2023 6:32 PM I O PSYCHOLOGIST) BUN 13 7 - 26 mg/dL 08/03/2023 7:02 PM I O PSYCHOLOGIST [facility] Creatinine 0.90 0.56 - 0.96 mg/dL 08/03/2023 7:[address] [facility] Sodium 140 136 - 145 mmol/L 08/03/2023 7:02 PM [facility] Potassium 3.9 3.5 - 4.5 mmol/L 08/03/2023 7:02 PM [facility] Chloride 104 98 - 107 mmol/L 08/03/2023 7:02 PM [facility] CO2 26 22 - 29 mmol/L 08/03/2023 7:02 PM [facility] Glucose 102 70 - 115 mg/dL 08/03/2023 7:02 PM [facility] Calcium 9.1 8.4 - 10.2 mg/dL 08/03/2023 7:02 PM [facility] Protein Total 7.0 6.0 - 8.3 g/dL 08/03/2023 7:02 PM [facility] Albumin 3.3(L) 3.4 - 5.0 g/dL 08/03/2023 7:02 PM [facility] Bilirubin Total 0.4 0.2 - 1.2 mg/dL 08/03/2023 7:02 PM [facility] Alkaline Phosphatase 72 40 - 150 U/L 08/03/2023 7:02 PM [facility] ALT 13 5 - 55 U/L 08/03/2023 7:02 PM [facility] AST 19 5 - 34 U/L 08/03/2023 7:02 PM [facility] Anion Gap 10 6 - 16 08/03/2023 7:02 PM [facility] BUN/Creatinine Ratio 14 7 - 23 08/03/2023 7:02 PM [facility] Osmolality Calculated 290 275 - 295 mOsm/kg 08/03/2023 7:02 PM [facility] Albumin/Globulin Ratio 0.9(L) 1.1 - 2.3 08/03/2023 7:02 PM [facility] eGFR by CKD-EPI 90 >=90 mL/min/1.7 3 m2 08/03/2023 7:02 PM [facility] Blood BLOOD SPECIMEN / Unknown Venipuncture / Unknown 08/03/2023 6:32 PM [facility] 08/03/2023 6:36 PM I O PSYCHOLOGIST Fred Chatterjee MD LAB - CHEMISTRY [facility] [address] [address], [place] [phone] * HEPATITIS C AB SCREEN RFLX NAAT QUANT (07/05/2023 8:09 PM I O PSYCHOLOGIST) [facility] Hepatitis C Antibody Non-react shannan Non-reac tive 07/05/2023 9:10 PM I O PSYCHOLOGIST [facility] Comment:Hepatitis C Antibody screen indicates no serologic evidence of past or current infection with Hepatitis C Virus. Patients with unexplained liver disease who are immunocompromised or suspected of having acute Hepatitis C infection may benefit from Nucleic Acid Test (JUAN) for Hepatitis C Viral RNA to confirm Hepatitis C status. Blood BLOOD SPECIMEN / Unknown Venipuncture / Unknown 07/05/2023 8:09 PM I O PSYCHOLOGIST 07/05/2023 8:23 PM I O PSYCHOLOGIST Kristopher Haddad MD LAB - CHEMISTRY [facility] [address] [address], [place] [phone] * HIV-1 HIV-2 ANTIBODY + HIV P24 AG PANEL (07/05/2023 8:09 PM I O PSYCHOLOGIST) [facility] HIV Antigen/Antibod y 1 & 2 Non-reacti ve Non-react shannan 07/05/2023 9:10 PM I O PSYCHOLOGIST [facility] Comment:No Laboratory eviden ce of HIV infection. Blood BLOOD SPECIMEN / Unknown Venipuncture / Unknown 07/05/2023 8:09 PM I O PSYCHOLOGIST 07/05/2023 8:23 PM I O PSYCHOLOGIST Kristopher Haddad MD LAB - CHEMISTRY [facility] [address] [address], [place] [phone] * (ABNORMAL) HEMOGLOBIN A1C (09/27/2019 4:33 PM I O PSYCHOLOGIST) Hemoglobin A1c 6.8(H) 4.2 - 5.6 % 09/27/2019 8:55 PM I O PSYCHOLOGIST [facility] Estimated Average Glucose 148 mg/dL 09/27/2019 8:[address] [facility] Blood BLOOD SPECIMEN / Unknown Venipuncture / Unknown 09/27/2019 4:33 PM I O PSYCHOLOGIST 09/27/2019 5:11 PM I O PSYCHOLOGIST Narrative [facility] - 09/27/2019 8:55 PM I O PSYCHOLOGIST The following cutoff levels are recommended by [employer]. A1c > 6.5% : considered as diabetes if two separate tests >6.5% or in an appropriate clinical setting. A1c 5.7% - 6.4% : considered as prediabetes (suggest increased risk for diabetes and cardiovascular disease) Control target level: Should be individualized. < 7 for general (non-) , < 8% less stringent goal, < 6.5 more stringent goal. Hemoglobin A1c measurements are used as an aid in the diagnosis of diabetic mellitus, as an aid to identify patients who may be at the risk for developing diabetic mellitus, and for the monitoring long-term blood glucose control in individuals with diabetes mellitus. This test should not replace glucose testing for patients with Type 1 diabetes, pediatric patients, or women. Falsely low HbA1c results may be observed in patients with clinical conditions that shorten erythrocyte life span or decrease mean erythrocyte age such as the presence of unstable hemoglobin variants, elevated hemoglobin F level or other causes of hemolytic anemia . HbA1c may not accurately reflect glycemic control when clinical conditions that affect erythrocyte survival are present. Severe Iron deficiency anemia may yield falsely high results. Hemoglobin A1c assay should not be used to diagnose or monitor diabetes in patients with malignancy, recent blood transfusion, chronic kidney or liver disease. This method may yield falsely low results when hemoglobin (HbF) exceeds 5% in the specimen. Jade Ospina MD LAB - CHIEF ACCOUNTANT RY ORDERABLES [facility] [address] [place] [address] * (ABNORMAL) PAP LB RFLX HPV ASCU (03/22/2019 11:41 AM CDT) Pathologist [facility] Diagnosis Comment(A) 03/28/2019 5:07 PM CDT [facility] ([facility]) Comment: EPITHELIAL CELL ABNORMALITY. ATYPICAL SQUAMOUS CELLS OF UNDETERMINED SIGNIFICANCE (ASC-US). Specimen Adequacy Comment 019 5:07 PM CDT [facility] ([facility]) Comment: Satisfactory for evaluation. Endocervical and/or squamous metaplastic cells (endocervical component) are present. Performed by Comment 03/28/2019 5:07 PM CDT [facility] ([facility]) Comment:Emanuel Damon , Pickle Solution Maker (ASCP) Electronically Signed by Comment 03/28/2019 5:07 PM CDT [facility] ([facility]) Comment:Elva Anton MD, Pathologist Comment . 03/28/2019 5:07 PM CDT [facility] ([facility]) Pathologist Provided ICD10 Comment 03/28/2019 5:07 PM CDT [facility] ([facility]) Comment:R87.610 Note Comment 03/28/2019 5:07 PM CDT [facility] ([facility]) Comment: The Pap smear is a screening test designed to aid in the detection of premalignant and malignant conditions of the uterine cervix. It is not a diagnostic procedure and should not be used as the sole means of detecting cervical cancer. Both false-positive and false-negative reports do occur. Note Comment 03/28/2019 5:07 PM CDT [facility] ([facility]) Comment:See below for HPV te sting results. Pathology/Cytolo gy ENTIRE ENDOCERVIX / Unknown Collection / Unknown 03/22/2019 11:41 AM CDT 03/22/2019 11:47 AM CDT [facility] ([facility]) - 03/28/2019 5:07 PM CDT Performed at: - [address] [place] [id number] [employer] Material Inspector: Elva Anton MD, Phone: [phone] Performed at: - [address] [id number] Navy Material Inspector: Poly Duggan MD, Phone: [phone] Specimen Comment: Source.............Endocervix Specimen Comment: No. of containers..01 ThinPrep Vial Jade Munoz MD LAB - PATHOLOGY/C YTOLOGY ORDERABLES [facility]) [address] [place] [address] from Last 3 Months or Most Recently Relevant to Health Maintenance Advance Directives * Full Code (Latest Code Status on File) Date Activated Date Inactivated Comments 07/22/2023 9:28 PM 07/24/2023 1:27 PM * Full Code Date Activated Date Inactivated Comments 07/05/2023 7:58 PM 07/22/2023 6:59 PM * Full Code Date Activated Date Inactivated Comments 12/02/2019 1:06 PM 12/06/2019 5:38 PM * Full Code Date Activated Date Inactivated Comments 12/01/2019 8:07 AM 12/01/2019 3:03 PM * Full Code Date Activated Date Inactivated Comments 11/29/2019 3:26 PM 12/01/2019 8:07 AM Care Teams Shift Nurse Manager Relationship Specialty Start Date End Date Liliana Odom APRN-ED TRANSPORTER PCP - General 05/24/20 Brandy Smiley MD [address] [place] [address] 05/24/20
--- OUTSIDE RECORDS SUMMARY | 2024-10-23 09:19 | XMS_ITS | Encounter Summary ---
Author Organization [facility] Address [address] [place] [address] Care Team Providers Care Heating And Cooling Systems Engineer Name Role Phone [place] Odomcandace Myers APRN-[facility] Primary Care Provi evelina Brandy Smiley MD Unavailable Reason for Visit * Reason Onset Date Comments MEDICATION REFILL 08/26/2023 Encounter Details Date Type Department Care Team (Late st Contact Info) Description 08/26/2023 Refill [facility] - General Surgery [address] [facility] [place] [address] Nasra Swanson MD [address] [place] [address] MEDICATION REFILL Social History Tobacco Use Types Packs/Day Years [...] care, and heating? Not very hard 07/06/2023 [facility] [place] of Occupat ional Health - Occupational Stress [...] place to sleep or slept in a intermediate (including now)? No 07/06/2023 Housing Stability Vital [...] on file documented as of this encounter Functional Status Functional Status Response Date of Assess ment Is person deaf or have serious hearing difficult y? No 07/06/2023 Is person blind or have serious difficulty seein g? No 07/06/2023 Does person have serious dif ficulty walking/climbing stairs? No 07/06/2023 Does person have difficulty dressing/bathing? No 07/06/2023 Does person have difficulty doing errands alone? No 07/06/2023 Cognitive Status Response Date of Assessm ent Does person have difficulty concentrating/remembering/making decisions? No 07/06/2023 documented as of this encounter Plan of Treatment Not on file documented as of this encounter Visit Diagnoses Not on filedocumented in this encounter Care Teams Heating And Cooling Systems Engineer Relationship Specialty Start Date End Date Liliana Odom APRN-DIRECTOR OF THERAPY SERVICES PCP - General 05/24/20 Brandy Smiley MD [address] [place] [address] 05/24/20 documented as of this encounter
--- OUTSIDE RECORDS SUMMARY | 2024-10-23 09:19 | XMS_ITS | Encounter Summary ---
Author Organization [facility] Address [address] [place] [address] Phone Care Team Providers Care Formation Fracturing Operator Name Role Phone Moody Beltran MD Primary Care Provider [phone] Jai Naidu MD Unavailable [phone] Rachel Sommer MD Unavailable Reason for Visit * Reason Comments Medication Refill Encounter Details Date Type Department Care Team (Late st Contact Info) Description 04/15/2022 Refill [facility] - Family Medicine [facility] [address] [place] [id number] Moody Beltran MD [address] [address] Medication Refill Social History Tobacco Use Types [...] suspected to have Coronavirus/COVID-19? No / Unsure 03/26/2022 9:47 AM CDT documented as of this encounter Miscellaneous Notes * Telephone Encounter - Maureen Savage RN - 04/15/2022 12:37 PM CDT Medication failed the protocol, provider to review and approve the medication order if appropriate. Requested Prescriptions Pending Prescriptions Disp Refills HumaLOG 100 UNIT/ML Solution [Pharmacy Med Name: HUMALOG 100 UNIT/ML VIAL] 20 mL Sig: INJECT 10-20U OF INSULIN THREE TIMES A DAY WITH MEALS PER SLIDING SCALE. Not Delegated - Insulin Protocol Failed - 04/15/2022 12:03 AM Failed - This refill cannot be delegated Passed - Visit with relevant provider in past 12 months or upcoming 90 days Recent Visits Date Type Provider Dept 09/30/21 Office Visit Anastacio James APRN, [facility] 08/22/21 Telemedicine Moody Beltran MD [facility] 05/21/21 Office Visit Moody Beltran MD [facility] 04/15/21 Office Visit Anastacio James APRN, HR CONSULTANT [facility] Showing recent visits within past 365 days and meeting all other requirements Future Appointments No visits were found meeting these conditions. Showing future appointments within next 90 days and meeting all other requirements documented in this encounter Plan of Treatment Upcoming Encounters Date Type Department Care Team (Latest Contact Info) Description 11/16/2024 11:15 AM CDT [facility] [address] [place] [id number] Val Pemberton, PETROLEUM REFINING EQUIPMENT OPERATOR [address] [place] [address] Discharge Disposition: Discharged to home or Selfcare 12/07/2024 11:30 AM CDT Office Visit [facility] - Endocrinology - [place] [address] [place] [phone] Rachel Sommer MD [address] [facility] [address] [place] [address] documented as of this encounter Visit Diagnoses Diagnosis Type 1 diabetes mellitus with hyperglycemia (HCC) Type I (juvenile type) diabetes mellitus without mention of complication, not stated as uncontrolled documented in this encounter Care Teams Formation Fracturing Operator Relationship Specialty Start Date End Date Moody Beltran MD [address] [address] PCP - General Family Medicine 02/13/21 Jai Naidu MD [address] [address] Consulting Physician General Surgery 10/11/21 Rachel Sommer MD [address] [address] Consulting Physician Endocrinology 01/30/22 documented as of this encounter
--- OUTSIDE RECORDS SUMMARY | 2024-10-23 09:19 | XMS_ITS | Clinical Summary ---
Author Organization [facility] Address [facility] [place] [address] Care Team Providers Care Footwear Sales Representative Name Role Phone Anastacio James SUPERVISOR REFINING Primary Care Provider Allergies Active Allergy Reactions Criticality Noted Date Comments Milk Protein GI Upset Low 01/12/2018 Medications DEXCOM GEODESIST KIT DeviceIndications :Diabetes mellitus type 1, uncontrolled, with complications 1 each by Does not apply route continuous. 1 Device 03/18/20 Active Blood Glucose Monitoring Suppl (BLOOD GLUCOSE MONITOR SYSTEM) w/Device KitIndications:Di abetes mellitus type 1, uncontrolled, with complications 1 each by Other route 4 (four) times daily as needed. 1 kit 03/20/20 Active Glucose Blood (BLOOD GLUCOSE TEST STRIPS) StripIndications: Diabetes mellitus type 1, uncontrolled, with complications 1 Units by Does not apply route 4 (four) times daily. 120 strip 6 03/20/20 Active LANCETS ULTRA THIN 30G MiscIndications:D iabetes mellitus type 1, uncontrolled, with complications 1 Units by Other route 4 (four) times daily. 120 each 6 03/20/20 Active Lancets MiscIndications:D iabetes mellitus type 1, uncontrolled, with complications Use to check blood sugar 4 time daily 2 Container 09/16/19 Active B-D UF III MINI PEN NEEDLES 31G X 5 MM MiscIndications:D iabetes mellitus type 1, uncontrolled, with complications USE DAILY DIRECTED 1 Container 6 07/30/20 Active terbinafine 250 MG tablet Take 250 mg by mouth daily. 02/19/20 21 Active insulin lispro 100 UNIT/ML patient supplied PUMP Inject into the skin continuous. Make and model of pump: T slim Insulin type in pump: Humalong Basal rate: unknown Insulin to CHO ratio: unknown Insulin Sensitivity factor: unknown Target blood glucose: unknown Active azithromycin (ZITHROMAX) 500 MG tablet Take 1 tablet (500 mg total) by mouth daily. 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 Repeat pap smear cytology in 3 years or co-testing in 5 years. Diabetes mellitus type 1, uncontrolled, with com plications 06/08/2018 Overview (09/02/2018): Transitioned From: Diabetes mellitus; Description: diagnosed at age 10 Moderate episode of recurrent major depressive d isorder 06/08/2018 Depression 04/27/2018 Migraines 04/27/2018 Contraception 01/12/2018 Medication management 01/12/2018 Resolved Problems Problem Noted Date Diagnosed Date Resolved Date Wears glasses 04/27/2018 04/13/2020 Immunizations Name Administration Dates Next Due Influenza (Generic) 05/10/2013 Tdap (Generic) 05/10/2013 Family History Medical History Relation Comments Diabetes Father Diabetes Mother Ovarian Cancer Other Relation Status Comments Father Alive Mother Alive Other Alive Social History Tobacco Use Types Packs/Day Years Used Date Smoking Tobacco: Former Cigarettes Smokeless Tobacco: Never Tobacco Cessation:Ready to Q uit: No; Counseling Given: Yes Alcohol Use Standard Drinks/Week Comments Yes 5 (1 standard drink = 0.6 oz pur e alcohol) social Education Answer Date Recorded What is the highest level of school you have completed or the highest degree you have received? 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 Not on file Not on file Not on file Last Filed Vital Signs Vital Sign Reading Time Taken Comments Blood Pressure 116/69 08/22/2021 9:[address] ENGINEER Pulse 93 08/22/2021 9:[address] ENGINEER Temperature 36.7 C (98.1 F) 08/22/2021 9:[address] ENGINEER Respiratory Rate 20 08/22/2021 9:[address] ENGINEER Oxygen Saturation 98% 08/22/2021 9:[address] ENGINEER Inhaled Oxygen Concentration - - Weight 86.2 kg (190 lb) 08/22/2021 9:[address] ENGINEER Height 170.2 cm (5' 7 ) 08/22/2021 9:[address] ENGINEER Body Mass Index 29.76 08/22/2021 9:[address] ENGINEER Plan of Treatment Health Maintenance Due Date Last Done Comments Kidney Health Evaluation 1996 Hepatitis B Vaccines (3 of 3 - 3-dose series) 1996 1996, 1996 Annual Physical 1999 Pneumococcal Vaccine: Pediatrics (0 to 5 Years) and At-Risk Patients (6 to 64 Years) (1 of 2 - PCV) 2002 Diabetes: Retinopathy Eye Exam 2014 Lipid Panel 11/05/2019 11/04/2018, 11/04/2018 Hemoglobin A1C 03/27/2020 09/27/2019, 09/04, 03/18/2019, Additional history exists Cervical Cancer Screening Pap Smear (Age 21 to 29) Every 3 Years 11/18/2022 11/19/2019 Cervical Cancer Screening 11/18/2022 COVID-19 Vaccine ( season) 2024 Influenza Adult (#1) 2024 06/06/2014, 05/10/20 13 DTaP, Tdap and Td Vaccines (6 - Td or Tdap) 11/07/2029 11/08/2019, 05/10/2013, 05/05/2006, Additional history exists HPV Vaccines Completed 01/20/2012, 0708/2010, 02/22/2010 Meningococcal Vaccine Completed 02/18/2013 Hepatitis C Completed 09/27/2019 Chlamydia Screening Females ages 16-24 Discontinued 11/19/2019 Meningococcal B Vaccine Aged Out No l onger eligible based on patient's age to complete this topic RSV Immunizations Under 20 Months Aged Out No longer eligible based on patient's age to complete this topic Procedures Procedure Name Priority Date/Time Associated Diagnosis Comments HEMOGLOBIN, GLYCOSYLATED Routine 09/27/2019 LIPID PANEL Routine 11/04/2018 3:11 PM CDT Diabetes mellitus type 1, uncontrolled, with complications from Last 3 Months or Most Recently Relevant to Health Maintenance Results * HEMOGLOBIN, GLYCOSYLATED (09/27/2019) HGB A1C 6.9 % 09/27/2019 us Doc [facility] LABORATORY Final Result * LIPID PANEL (11/04/2018 3:11 PM CDT) CHOLESTEROL 184 <200.0 MG/DL [facility] TRIGLYCERIDES 119 <150 MG/DL [facility] HDL 65 >40.0 MG/DL [facility] LDL (CALCULATED) 95 <100 MG/DL [facility] NON HDL CHOLESTEROL 119 <130 MG/DL [facility] CHOL/HDL RATIO 2.8 0.0 - 4.5 [facility] VLDL CALCULATION 24 5 - 55 MG/DL [facility] LIPID INTERPRETATION [facility] Comment: [facility] CONCENSUS REPORT RECOMMENDATIONS: ADULT CHILD LOW RISK: CHOLESTEROL <200 <170 TRIGLYCERIDE <150 --- HDL >=60 --- LDL <100 <110 BORDERLINE: CHOLESTEROL 200-239 170-199 TRIGLYCERIDE 150-199 --- HDL 40-59 --- LDL 100-159 110-129 HIGH RISK: CHOLESTEROL >=240 >=200 TRIGLYCERIDE >=200 --- HDL <40 --- LDL >=160 >=130 11/04/2018 3:11 PM CDT 11/04/2018 5:48 PM CDT us Liliana Odom NP LABORATORY Final Resul t [facility] () [facility] [address] [place] [address], from Last 3 Months or Most Recently Relevant to Health Maintenance Insurance Care Teams Footwear Sales Representative Relationship Specialty Start Date End Date Anastacio James NP PCP - General FAMILY PRACTICE 02/25/21
--- OUTSIDE RECORDS SUMMARY | 2024-10-23 09:19 | XMS_ITS | Clinical Summary ---
Author Organization [facility] Address [address] [place] [address] Phone Care Team Providers Care Apparel Sales Leader Name Role Phone Moody Beltran MD Primary Care Provider [phone] Jai Naidu MD Unavailable +- [phone] Rachel Sommer MD Unavailable Allergies Active Allergy Reactions Criticality Noted Date Comments Lactose Diarrhea 06/01/2019 Milk Protein Nausea Low 01/12/2018 Other-Environmental Allergen (Not Found In Search) Hives 02/18/2021 Pt states allergy to sun results in hives and blisters Medications other by Other route. Control Active other by Other route. One Touch Verio Glucometer Active Insulin Pump Accessories MiscIndications:T ype 1 diabetes mellitus with hyperglycemia (HCC) [place] with needle, adhesive patch, and tubing. Change every 3 days and as needed. 30 Each 04/15/20 21 Active Desogestrel-Ethin yl Estradiol 0.15-30 MG-MCG Tablet Take 1 Tablet by mouth daily. Active Skin Protectants, Misc. (No-Sting Skin-Prep) Misc 1 Each by Apply externally route every 10 days. Apply skin barrier prior to application of Dexcom sensor. 30 Each 3 04/01/20 23 Active OneTouch Verio Strip TEST BLOOD GLUCOSE 4X DAILY. 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 270 Capsule 2 09/11/19 24 Active Blood Glucose Monitoring Suppl ([employer] Verio) w/Device KitIndications:Ty pe 1 diabetes mellitus on insulin therapy (HCC) 1 Kit by Does not apply route 4 times daily. Test blood glucose 4x daily. E10.9. 1 Kit 09/11/19 24 Active Glucose Blood ([employer] Verio) StripIndications: Type 1 diabetes mellitus on insulin therapy (HCC) Use as directed to check blood sugar 4 times daily. Dx: E10.9 250 Strip 11 09/11/19 24 Active OneTouch Delica Lancets 33G MiscIndications:T ype 1 diabetes mellitus on insulin therapy (HCC) 1 Lancet by Does not apply route 4 times daily. Test blood glucose 4x daily. 400 Lancet 3 09/11/19 24 Active Continuous Blood Gluc Vp Design (Dexcom G7 Vp Design) Device Check blood sugar before each meal and at bedtme 1 Each 10/07/19 24 Active pyridoxine (VITMAIN B-6) 25 MG TabletIndications :Nausea Take 1 Tablet by mouth 3 times daily as needed (nausea). 30 Tablet 10/16/19 24 Active Aspirin Low Dose 81 MG Tablet Delayed Response TAKE 1 TABLET (81 MG) BY ORAL ROUTE ONCE DAILY STARTING AT 12 WEEKS AND THROUGH DELIVERY 12/09/19 24 Active sertraline (ZOLOFT) 100 MG Tablet Take 200 mg by mouth daily. Active Continuous Glucose Sensor (Dexcom G7 Sensor) Misc Every 10 days 9 Each 1 09/12/19 25 Active insulin lispro (HumaLOG) 100 UNIT/ML SolutionIndicatio ns:Type 1 diabetes mellitus with hyperglycemia (HCC) Per insulin pump setting, up to 100 units a day 100 mL 10/18/19 25 Active hydrOXYzine (ATARAX) 25 MG TabletIndications :Anxiety and depression Take 1 Tablet by mouth every 8 hours as needed for Anxiety. 30 Tablet 10/18/19 25 Active insulin lispro (HumaLOG) 100 UNIT/ML SolutionIndicatio ns:Type 1 diabetes mellitus with hyperglycemia (HCC) Per insulin pump setting, up to 100 units a day 100 mL 07/11/20 24 025 Discontin ued(Reord er) hydrOXYzine (ATARAX) 25 MG TabletIndications :Anxiety and depression Take 1 Tablet by mouth every 8 hours as needed for Anxiety. 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 09/11/2023 Obesity (BMI 30-39.9) 11/17/[address] 05/21/2021 Type 1 diabetes mellitus on insulin therapy 05/03 Noncompliance 05/21/2021 Lactose intolerance GERD (gastroesophageal reflux disease) Diabetes mellitus Encounters Date Type Department Care Team Description 10/17/2024 11:15 AM CDT Outpatient Clinic Visit [facility] [address] [place] [phone] Val Pemberton LCSW ESTEFANY (generalized anxiety disorder) (Primary Dx) Discharge Disposition: Discharged to home or Selfcare 10/17/2024 Travel 10/17/2024 MyChart RX Renewal [facility] - Family Medicine - [place] [place] [phone] Flaquita Fernandez, AIRBRUSH ARTIST, FARMWORKER [employer] Medication Renewal Reviewed 10/17/2024 MyChart RX [facility]al [facility] - [address] [place] [phone] Rachel Sommer MD Medication Renewal Reviewed 09/11/2024 MyChart RX Renewal [facility] [address] [place] [address] Rachel Sommer MD Medication Renewal Reviewed 09/05/2024 11:15 AM CUFF MAKER Office Visit [facility] [address] [place] [address] Rachel Sommer MD Type 1 diabetes mellitus with hyperglycemia (HCC) (Primary Dx); Class 3 severe obesity due to excess calories with serious comorbidity and body mass index (BMI) of 40.0 to 44.9 in adult (HCC); Other fatigue; Insulin pump titration; Hypoglycemia Discharge Disposition: Discharged to home or Selfcare 09/05/2024 Travel 08/24/2024 12:30 PM CUFF MAKER Telemedicine [facility] - [place] [address] [place] [address] Flaquita Fernandez APRN, RUFINO Anxiety and depression (Primary Dx) 08/24/2024 Travel 08/23/2024 Travel 08/11/2024 3:15 PM CUFF MAKER Outpatient Clinic Visit [facility] [address] [place] [address] Val Pemberton LCSW ESTEFANY (generalized anxiety disorder) (Primary Dx) Discharge Disposition: Discharged to home or Selfcare 08/11/2024 Travel from Last 3 Months Immunizations Immunization Administration Dates Next Due DTAP VACCINE 11/24/2000,10/31/1997 DTP-Hib 01/31/1997,1996,1996 Hepatitis A, Pediatric, Unsp ecified Formulation 01/14/2008,01/06/2007 Hepatitis B Vaccine, Pediatric/adolescent 1995,1996 Hepatitis B Vaccine,unspecified Formulation 11/02 Hib Vaccine,unspecified Formulation 10/31/1997 Hpv, Unspecified Formulation 01/31/2011,02/23/20 10 Human Papillomavirus Vaccine (HPV), quadrivalent 01/20/2012 Inactivated Polio Vaccine 11/24/2000 Influenza Vaccine 05/10/2013 Influenza Vaccine Quadrivalent Nasal 06/06/2014 MMR Vaccine 11/24/2000,04/14/1997 Meningococcal MCV4O 02/18/2013 Meningococcal Vaccine, Unspe cified Formulation 02/19/2009 OPV 01/31/1997,1996,1996 TDAP Vaccine 11/08/2019,05/10/2013,05/05/2006 Family History Medical History Relation Name Comments Diabetes Father Dad Asthma Maternal Grandmother Gma evon Diabetes Maternal Grandmother Gma evon Asthma Mother Mom Diabetes Mother Mom Migraines Mother Mom Relation Name Status Comments Father Dad Alive Maternal Grandmother Gma evon Mother Mom Alive Social History Tobacco Use Types Packs/Day Years Used Date Smoking Tobacco: Never Smokeless Tobacco: Never Tobacco Cessation:Counseling Given: No Alcohol Use Standard Drinks/Week Comments Not Currently 4 (1 standard drink = 0.6 oz pur e alcohol) once every few weeks [facility] Answer Date Recorded In the past 12 months has [employer] electric, gas, oil, or water company threatened to shut off services in your home? No 08/23/2024 Social Connection and Isolation Panel [NHANES] A nswer Date Recorded In a typical week, how many times do you talk on the phone with family, friends, or neighbors? Twice a week 08/23/2024 How often do you get together with friends or re latives? Once a week 08/23/2024 How often do you attend mandaen or temple serv ices? Never 08/23/2024 Do you belong to any clubs o r organizations such as mandaen groups, unions, fraternal or athletic groups, or school groups? No 08/23/2024 How often do you attend meet ings of the clubs or organizations you belong to? Never 08/23/2024 Are you , , di vorced, , never , or living with a partner? 08/23/2024 AUDIT-C Answer Date Recorded Q1: How often do you have a drink containing alc ohol? Monthly or less 08/23/2024 Q2: How many drinks containi ng alcohol do you have on a typical day when you are drinking? 1 or 2 08/23/2024 Q3: How often do you have si x or more drinks on one occasion? Never 08/23/2024 Overall Financial Resource Strain (CARDIA) Answe r Date Recorded How hard is it for you to pa y for the very basics like food, housing, medical care, and heating? Somewhat hard 08/23/2024 PHQ-2 Answer Date Recorded Total Score - Questions 1-9 3 08/04 [facility] - Occupational Stress Questionnaire Answer Date Recorded Do you feel stress - tense, restless, nervous, or anxious, or unable to sleep at night because your mind is troubled all the time - these days? Very much 08/23/2024 Exercise Vital Sign Answer Date Recorde d On average, how many days pe r week do you engage in moderate to strenuous exercise (like a brisk walk)? 2 days 08/23/2024 On average, how many minutes do you engage in exercise at this level? 20 min 08/23/2024 Hunger Vital Sign Answer Date Recorded Within the past 12 months, y ou worried that your food would run out before you got the money to buy more. Sometimes true Within the past 12 months, t he food you bought just didn't last and you didn't have money to get more. Sometimes true PRAPARE - Transportation Answer Date Re corded In the past 12 months, has l ack of transportation kept you from medical appointments or from getting medications? No 08/04 In the past 12 months, has l ack of transportation kept you from meetings, work, or from getting things needed for daily living? No 08/23/2024 Housing Stability Vital Sign Answer Peterson e Recorded In the last 12 months, was t here a time when you were not able to pay the mortgage or rent on time? Patient declined 09/07/19 24 In the last 12 months, how many places have you lived? 1 09/07/2023 In the last 12 months, was t here a time when you did not have a steady place to sleep or slept in a intermediate (including now)? No 09/07/2023 Housing Stability Vital Sign Answer Peterson e Recorded In the last 12 months, was t here a time when you were not able to pay the mortgage or rent on time? No 08/23/2024 In the past 12 months, how m any times have you moved where you were living? 1 08/23/2024 At any time in the past 12 m [facility], were you homeless or living in a intermediate (including now)? No 08/23/2024 Sexually Active Control Partners Comments Yes Oral Contraceptive Male Comments Unknown Sex and Gender Information Value Date Recorded Sex Assigned at Not on file Legal Sex Female 7:44 PM CDT Gender Identity Not on file Sexual Orientation Not on file Last Filed Vital Signs Vital Sign Reading Time Taken Comments Blood Pressure 118/80 09/05/2024 11:01 AM CUFF MAKER Pulse 101 09/05/2024 11:01 AM CUFF MAKER Temperature 36.2 C (97.1 F) 09/05/2024 11:01 AM CUFF MAKER Respiratory Rate 22 09/05/2024 11:01 AM CUFF MAKER Oxygen Saturation 97% 09/05/2024 11:01 AM CUFF MAKER Inhaled Oxygen Concentration - - Weight 99.8 kg (220 lb) 09/05/2024 11:01 AM CUFF MAKER Height 170.2 cm (5' 7 ) 12/31/2023 10:46 AM CDT Body Mass Index 34.46 12/31/2023 10:46 AM CDT Plan of Treatment Upcoming Encounters Date Type Department Care Team (Latest Contact Info) Description 11/16/2024 11:15 AM CDT Outpatient Clinic Visit [facility] [address] [place] [address] Val Pembetron, CHIEF SCIENTIFIC OFFICER [address] [place] [address] Discharge Disposition: Discharged to home or Selfcare 12/07/2024 11:30 AM CDT Office Visit [facility] - Endocrinology - [place] [place] [phone] Rachel Sommer MD [address] [phone] Health Maintenance Due Date Last Done Comments Diabetes: Eye Exam 1996 Pap Smear 03/22/2022 03/22/2019 Influenza Immunization (#1) 2024 10/0 08/2015, 06/06/2014, 05/10/2013 SARS-COV-2 Immunization ( season) 2024 04/30/2021 Diabetes: Nephropathy Screening 07/05/2024 07/05/2023, 09/05/2022, 11/11/2017, Additional history exists Diabetes: Foot Exam 10/15/2024 10/16/2023, Diabetes: Hemoglobin A1c 03/05/2025 025, 04/30/2024, 01/20/2024, Additional history exists DTaP/Tdap/Td Immunization (11 - Td or Tdap) 03/02/2034 03/02/2024, 11/08/2019, 05/10/2013, Additional history exists Pneumococcal Immunization Combined (3 of 3 - PCV20 or PCV21) 2046 04/28/2019, 09/04/2018 Respiratory Syncytial Virus (RSV) Immunization (Adult) (1 - 1-dose 75+ series) 2071 Hepatitis B Immunization Completed 997, 1996, 1996, Additional history exists Human Papillomavirus (HPV) Immunization Discontinued 01/20/2012, 01/31/2011, 02/22/2010, Additional history exists Meningococcal Immunization (ACWY) Completed 02/18/2013, 02/19/2009, 01/21/2008 Hepatitis C Virus (HCV) Screening Completed 07/05/2023 Rotavirus Immunization Aged Out No lo nger eligible based on patient's age to complete this topic Goals Goal Patient Goal Type Associated Problems Recent Progress Patient-Stated? Author I want to be able to handle all this right now. It's stressful having to live near my mother] Behavioral Health Improving( 11:35 AM CDT) Yes Val Pemberton, CHIEF SCIENTIFIC OFFICER Note: Goal/Objective: Improve coping with her mother and improve communication and boundaries with her. Anticipated Time Frame for Goal Completion: 6 months Goal Reviewed with: patient Readiness to change: Ready to change Department associated with goal: [facility] Steps to achieve goal: will identify and verbalize how she would like her relationships with her parents and family to be. will identify three ways/habits/skills she believes may have a positive impact on healing and strengthening these relationships. 3. will consistently use one of these three ways/habits/skills for one month and then evaluate progress in the relationships. 4. Will attend individual and/or group therapy at least 1x/month at least 6 sessions I think I brought some of those responses into the marriage with me, and it's not fair to Lukas. Behavioral Health Improving( 11:34 AM CDT) Yes Val Pemberton, CHIEF SCIENTIFIC OFFICER Note: Goal/Objective: Decrease distorted or defensive anxious thoughts that are unhealthy for relationships, especially the marriage. Anticipated Time Frame for Goal Completion: 6 months Goal Reviewed with: patient Readiness to change: Ready to change Department associated with goal: [facility] Steps to achieve goal: 1. will be able to identify cognitive distortions/errors in thinking and rational vs irrational thoughts that trigger anxiety. 2. will be able to challenge cognitive distortions and irrational thoughts with positive counter-thoughts. 3. will evaluate how well this method of reducing anxiety triggering thoughts is helping 4. Will attend Individual and/or Group sessions at least 1x/month at least 6 sessions Procedures Procedure Name Priority Date/Time Associated Diagnosis Comments POCT GLYCOSYLATED HEMOGLOBIN Routine 09/05/2024 11:05 AM CUFF MAKER Type 1 diabetes mellitus with hyperglycemia (HCC) CMP (COMPREHENSIVE METABOLIC PANEL) STAT 07/05/2023 1:21 PM CUFF MAKER from Last 3 Months or Most Recently Relevant to Health Maintenance Results * (ABNORMAL) POCT GLYCOSYLATED HEMOGLOBIN (09/05/2024 11:05 AM CUFF MAKER) HGB-A1C 7.8(A) 4 - 6 % Blood 09/05/2024 11:0 5 AM CUFF MAKER Rachel Sommer MD POINT OF CARE TESTING (MANUAL) F inal Result * (ABNORMAL) Comprehensive Metabolic Panel (Cmp) [id number] (07/05/2023 1:21 PM CUFF MAKER) SODIUM 134(L) 136 - 145 mmol/L 07/05/2023 2:02 PM [facility] POTASSIUM 4.2 3.5 - 5.1 mmol/L 07/05/2023 2:02 PM [facility] CHLORIDE 100 98 - 107 mmol/L 07/05/2023 2:02 PM [facility] CO2, VENOUS 21(L) 22 - 30 mmol/L 07/05/2023 2:02 PM [facility] ANION GAP 17.2 <18.0 mmol/L 07/05/2023 2:02 PM [facility] GLUCOSE 234(H) 70 - 99 mg/dL 07/05/2023 2:02 PM [facility] BUN 25(H) 5 - 18 mg/dL 07/05/2023 2:02 PM [facility] CREATININE, BLOOD 1.45(H) 0.60 - 1.00 mg/dL 07/05/2023 2:02 PM [facility] BUN/CREATININE RATIO 17 12 - 20 ratio 07/05/2023 2:02 PM [facility] TOTAL PROTEIN 8.1 6.3 - 8.2 g/dL 07/05/2023 2:02 PM [facility] ALBUMIN 4.1 3.5 - 5.0 g/dL 07/05/2023 2:02 PM [facility] A/G RATIO 1.0 1.0 - 2.2 07/05/2023 2:02 PM [facility] CALCIUM 8.9 8.7 - 10.5 mg/dL 07/05/2023 2:02 PM [facility] T BILI 0.7 0.2 - 1.2 mg/dL 07/05/2023 2:02 PM [facility] SGOT (AST) 987(H) 5 - 34 U/L 07/05/2023 2:02 PM [facility] SGPT (ALT) 309(H) 0 - 55 U/L 07/05/2023 2:02 PM CUFF MAKER [facility] ALKALINE PHOSPHATASE 83 40 - 150 U/L 07/05/2023 2:02 PM CUFF MAKER [facility] GFR, ESTIMATED 51(L) >=60 07/05/2023 2:02 PM CUFF MAKER [facility] Comment: Creatinine Clearance is the preferred criteria for selecting drug dose adjustments in renally impaired patients. The GFR is provided as additional pertinent clinical information. GFR is reported in mL/min/1.73 sq m. Calculation based on the Chronic Kidney Disease Epidemiology Collaboration (CKD- EPI) equation refit without adjustment for race. GFR, EST. 52(L) >=60 023 2:02 PM CUFF MAKER [facility] GFR, EST. NONAFRICAN 43(L) >=60 07/05/2023 2:02 PM CUFF MAKER [facility] Blood Venipuncture / Unknown 07/05/2023 1:21 PM CUFF MAKER 07/05/2023 1:31 PM CUFF MAKER us Cande Borrego AIRBRUSH ARTIST, FARMWORKER [employer] CHEMISTRY ORDERABLES Final Result [facility] [address] [place] [address] from Last 3 Months or Most Recently Relevant to Health Maintenance Insurance MEDICAID [facility]AN [facility] MEDICAID [facility] Care Teams Apparel Sales Leader Relationship Specialty Start Date End Date Moody Beltran MD [address] [address] PCP - General Family Medicine 02/13/21 Jai Naidu MD [address] [phone] Consulting Physician General Surgery 10/11/21 Rachel Sommer MD [address] [phone] Consulting Physician Endocrinology 01/30/22
[2024-10-23 09:30] VITALS: BP 114/64; PULSE 97; RESP 16; TEMP 36.4; O2SAT 97
[2024-10-23 09:38] LABS: EDUAAPPEAR Cloudy; EDUABILI Negative (Negative); EDUABLOOD 2+ (Negative); EDUACOLOR1 Yellow; EDUAGLUCOSE Negative (Negative); EDUAKETONE Negative (Negative); EDUALEUKO 1+ (Negative); EDUANITRATE Positive (Negative); EDUAPROTEIN 2+ (Negative); EDUAUROBILI 0.2
--- NOTE | 2024-10-23 09:52 | ED_ITS ---
HPI - General Adult General Chief complaint: Urogenital-Female Stated complaint: Poss UTI Source: patient Mode of arrival: ambulatory Limitations: no limitations History of Present Illness HPI narrative: Patient presents for evaluation of urinary symptoms for last 2 days. Symptoms include dysuria, urinary frequency, and low back pain. She denies any fever, chills, nausea, vomiting, abdominal pain, vaginal discharge. She thinks she has a UTI. She took some cranberry pills and increased water intake and her dysuria has improved. Related Data Home Medications ?Medication ?Instructions ?Recorded ?Confirmed ?Last Taken ?Type blood sugar diagnostic (OneTouch 11/27/21 11/27/21 Unknown History Verio test strips) blood-glucose sensor (Dexcom G6 11/27/21 11/27/21 Unknown History Sensor device) blood-glucose transmitter (Dexcom 11/27/21 11/27/21 Unknown History G6 Transmitter device) aspirin 81 mg tablet,delayed 81 mg PO DAILY 11/29/23 03/21/24 Unknown History release insulin lispro 100 unit/mL See Rx Instructions .Route .COMPLEX 11/29/23 03/21/24 Unknown History subcutaneous solution vits no.126-ferrous fum tablet 03/21/24 Unknown History 28 mg iron-folic acid 800 mcg tablet (Classic ) Allergies Allergy/AdvReac Type Severity Reaction Status Date / Time No Known Allergies Allergy Verified 06/17/23 12:24 Review of Systems Review of Systems: CONSTITUTIONAL: Denies fever, chills, or sweats. EYES: Denies visual changes, redness, or discharge. ENT: Denies rhinorrhea, congestion, sore throat, or otalgia. CARDIOVASCULAR: Denies chest pain, palpitations, or edema. RESPIRATORY: Denies cough or dyspnea. GASTROINTESTINAL: Denies abdominal pain, nausea, vomiting, or diarrhea. GENITOURINARY: Reports urinary frequency and dysuria. Denies vaginal discharge or hematuria SKIN: Denies rash or itching. MUSCULOSKELETAL: Denies back pain, joint pain, or myalgia. NEUROLOGIC: Denies headache, numbness, dizziness, or weakness. PSYCHIATRIC: Denies anxiety or depression. [facility] Past Medical History Medical History Pneumonia COVID-19 2020 GERD (gastroesophageal reflux disease) Type 1 diabetes Surgical History Surgical History History of appendectomy History of History of placement of ear tubes History of tonsillectomy and adenoidectomy Family History Family History Mother Family history non-contributory Social History Social History Tobacco type: e-cigarettes/vaping Alcohol intake: unknown Substance use: unknown Gender identity (if verbalized by the patient): Female Exam Narrative: GENERAL: Well-appearing, well-nourished, and in no acute distress. HEAD: Normocephalic, atraumatic. EYES: PERRLA and EOMI. ENT: Nares clear, no rhinorrhea or epistaxis. Mucous membranes moist. Oropharynx without tonsillar hypertrophy exudate or other lesions. Bilateral TMs pearly schmidt nonbulging NECK: Supple. No adenopathy or masses. No carotid bruits or JVD CHEST: Clear to auscultation. No respiratory distress. No wheezes rales or rhonchi HEART: Regular rate and rhythm. No murmur heard. Normal peripheral pulses. ABDOMEN: Soft, nontender, nondistended, normal active bowel sounds. EXTREMITIES: Normal range of motion. No edema. BACK: No CVA tenderness SKIN: Warm, dry, no rash. NEURO: No focal deficits. Alert and oriented x3. PSYCH: Normal mood and affect. Course Course Emergency Course: This is a 29-year-old female who presented for evaluation of urinary symptoms. Urine positive for leukocytes and nitrates. Will send urine culture. Start Bactrim. Increase hydration. Follow up with primary provider. Go to the ER for worsening symptoms. Patient in agreement with plan of care. Level of Care: Express Care Visit Vital Signs Vital signs: Vital Signs Temperature 36.4 C 10/23/24 09:30 Pulse Rate 97 10/23/24 09:30 Respiratory Rate 16 10/23/24 09:30 Blood Pressure 114/64 10/23/24 09:30 Pulse Oximetry 97 10/23/24 09:30 Oxygen Delivery Room Air 10/23/24 09:30 Temperature 36.4 C 10/23/24 09:30 Pulse Rate 97 10/23/24 09:30 Respiratory Rate 16 10/23/24 09:30 Blood Pressure 114/64 10/23/24 09:30 Pulse Oximetry 97 10/23/24 09:30 Oxygen Delivery Room Air 10/23/24 09:30 Medical Decision Making Vital Signs Vital Signs: Vital Signs Temperature 36.4 C 10/23/24 09:30 Pulse Rate 97 10/23/24 09:30 Respiratory Rate 16 10/23/24 09:30 Blood Pressure 114/64 10/23/24 09:30 Pulse Oximetry 97 10/23/24 09:30 Oxygen Delivery Room Air 10/23/24 09:30 Temperature 36.4 C 10/23/24 09:30 Pulse Rate 97 10/23/24 09:30 Respiratory Rate 16 10/23/24 09:30 Blood Pressure 114/64 10/23/24 09:30 Pulse Oximetry 97 10/23/24 09:30 Oxygen Delivery Room Air 10/23/24 09:30 Lab Data Labs: Lab Results 10/23/24 Range/Units 09:32 POC Urine Color Yellow POC Urine Clarity Cloudy POC Urine pH 6.0 POC Ur Specif Goehner 1.020 POC Urine Protein 2+ (Negative) POC Ur Glucose (UA) Negative (Negative) POC Urine Ketones Negative (Negative) POC Urine Blood 2+ (Negative) POC Urine Nitrite Positive (Negative) POC Urine Bilirubin Negative (Negative) POC Urine Urobilinogen 0.2 POC U Leukocyte Esteras 1+ (Negative) Discharge Plan Discharge Clinical Impression: UTI (urinary tract infection) Patient Disposition: Home, Self-Care Condition: Stable Instructions: Antibiotic Form, Urinary Tract Infection in Women (DC) Patient Language: Mexican Prescriptions: New sulfamethoxazole-trimethoprim [Bactrim DS] 800-160 mg tablet 1 tablet PO Q12H Qty: 14 0RF No Action albuterol sulfate 90 mcg/actuation HFA aerosol inhaler 2 puff inhalation QID PRN (Reason: shortness of breath or wheezing) Qty: 6.7 0RF Classic 28 mg iron- 800 mcg Tablet aspirin 81 mg tablet,delayed release (DR/EC) 81 mg PO DAILY insulin lispro 100 unit/mL solution See Rx Instructions .ROUTE .COMPLEX Rx Instructions: per pump (DME) OneTouch Verio test strips Strip MISCELLANEOUS (DME) Dexcom G6 Sensor Device MISCELLANEOUS (DME) Dexcom G6 Transmitter Device MISCELLANEOUS Follow-up/Referrals: Ruby,Moody Rios MD [Primary Care Provider] - Time of Disposition: 09:40
== END 2024-10-23 09:44 | disposition home or self-care (01) ==
PROVIDERS: Emergency Provider Nurse Practitioner; PCP Family Medicine
DX: N39.0 Urinary tract infection, site not specified (principal); B96.89 Other specified bacterial agents as the cause of diseases classified elsewhere; E10.9 Type 1 diabetes mellitus without complications; Z79.4 Long term (current) use of insulin; K21.9 Gastro-esophageal reflux disease without esophagitis; Z86.16 Personal history of COVID-19
CPT/HCPCS: 81003; 87086; 87186; 99213; G0463

== ENCOUNTER 2025-01-03 18:23 | Emergency (ER) | payer OTHER, SELFPAY ==
--- OUTSIDE RECORDS SUMMARY | 2025-01-03 18:25 | XMS_ITS | Clinical Summary ---
Author Organization [address] Address [address] [place] [address] Care Team Providers Care Clearance Coordinator Name Role Phone Moody Beltran MD Primary Care Provider [phone] Allergies Active Allergy Reactions Criticality Noted Date Comments Casein Stomach upset Low 01/12/2018 Lactose Diarrhea Low 06/01/2019 Medications blood glucose diagnostic (glucose blood) strip 1 each by Not Applicable route 9 Active LANCETS MISC 0 Active Dexcom G7 Bi Specialist misc 4 Active glucagon 1 mg kit [...] Sensor device Use with the Dexcom G7 manager inventory to monitor blood glucose values continuously. Change [...] by mouth daily 45 tablet 5 4 Active Additional Information Patient taking differently: 200 [...] laparoscopic bilateral salpingectomy. - Blood, procedure, and [place] Medicaid consents signed. Prep for case submitted [...] [] follow up plan (select 1) [x] [facility] MFM / MFM Faculty Office Sites - [...] to set up f/u visit with primary donor technician Rachel Sommer ([facility]) # Anxiety/Depression: in therapy, on zoloft [...] # Disposition: Follow up task sent to [facility] scheduling pool. Desires discharge home today. Gallstones 01/20/2024 Overview (01/20/2024): Seen in [facility] on 12/17 with abdominal pain and RUQ US showed gallstones. We discussed avoiding fatty and fried foods to limit biliary colic. Assessment & Plan (02/06/2024 1:14 AM CDT): Seen in [facility] on 12/17 with abdominal pain and RUQ [...] 11/10/2023 Overview (07/25/2024): Care Dexcom Share code: [email or web address] T-connect (switched to control-IQ and sleep mode on 01/31 PM!) [email or web address]: [email or web address] Password: [email or web address] Current settings 07/25/2024 Work on timing boluses [...] A1C: 8.1% on 10/28 > 7.1% 01/19 Trunk Club Share code: [email or web address] T-connect (switched to control-IQ and sleep mode on 7 PM!) Username: [email or web address] Password: [email or web address] Current settings: 02/05/2024- T slim, sleep mode [...] trimester 11/10/2023 05/26/2024 Overview (04/27/2024): [x] Full [facility] Care; [] Blue Team- full transfer of care to [facility] as of 11/26/23, email sent to -som [x]Red team Referring Provider: Leonor Huang [phone] [x] Dating Criteria: [place] 10/29/23 with JOSE [...] Labs: [] CBC/HIV/RPR/TSH with reflex/A1C: external lab, [facility] in [place]-we have attempted to get the results and [...] would like to attempt breast feeding. 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 Declines genetic or carrier screening. Reviewed contraceptive plan. Reports will have completed her family after this . Partner planning vasectomy. We reviewed options for contraception including LARCs and sterilization. Provided [email or web address] website. She is considering her options. Encounters Date Type Department Care Team Description 10/06/2024 2:00 PM SECTION GANG Office Visit [facility] [address] 3rd Floor [address] [place] [address] Nicolle Munoz MD Follow-up examination (Primary Dx) from Last 3 Months Immunizations Immunization Administration [...] drink = 0.6 oz pur e alcohol) [facility] Utilities Answer Date Recorded In the past 12 months has [employer], gas, oil, or water [employer] threatened to shut off services in your [...] 04/30/2024 How often do you attend chur or evangelical services? Never 04/30/2024 Do you belong to any clubs o r organizations such as religion groups, unions, fraternal or athletic groups, or [...] things needed for daily living? No 04/30/2024 [place] Depression Scale Answer Date Recorded [place] Depression Scale Total 15 06/16/2024 The thought [...] any time in the past 12 m [facility], were you homeless or living in a mcc (including now)? No 04/30/2024 Personal Safety Answer Date Recorded Have you ever been in or are you currently in a harmful physical or emotional relationship or is someone making you feel afraid or unsafe? Denies 09/13/2024 Comments No Sex and Gender Information Value Date Recorded Sex Assigned at Not on file Legal Sex Female 7:38 PM SECTION GANG Gender Identity Not on file Sexual Orientation [...] g 7 8 BROWN, BABY GIRL STEPHANIE lópez MD Complications:Failure to Pro batsheva in Second Stage Delivery Location:[facility] ([facility] 5 LDR) 2023 Term 37w 0d 0h 02m 0h 02m 3.66 kg (8 lb 1.1 oz) M C-Sec tion Spinal N Livin g 5 9 Abiodun Garnett Fadi tierney, Paolo lassiter MD Complications:None Delivery Location:[facility] Main C ampus ([facility] L AND D PROCEDURE) Last Filed Vital Signs Vital Sign Reading Time Taken Comments Blood Pressure 134/70 10/06/2024 2:07 PM SECTION GANG Pulse 104 10/06/2024 2:07 PM SECTION GANG Temperature 37 C (98.6 F) 09/13/2024 6:20 PM SECTION GANG Respiratory Rate 18 10/06/2024 2:07 PM SECTION GANG Oxygen Saturation 98% 10/06/2024 2:07 PM SECTION GANG Inhaled Oxygen Concentration - - Weight 102.5 kg (226 lb) 10/06/2024 2:07 PM SECTION GANG Height 172.7 cm (5' 8) 10/06/2024 2:07 PM SECTION GANG Body Mass Index 34.36 10/06/2024 2:07 PM SECTION GANG Plan of Treatment Health Maintenance Due Date Last Done Comments Albumin Creatinine Ratio, Urine 1996 Foot Exam 1996 Dilated Eye Exam 2006 Regular Well Visit/Exam 18-64 2014 Lipid Panel 11/05/2019 11/04/2018, 09/03, 05/11/2013 TSH Level 11/18/2023 11/17/2022 Hemoglobin A1C 10/29/2024 05/01/2024, 04/04, 01/20/2024, Additional history exists Influenza Vaccine (Season Ended) 2025 05/03/2016, 06/06/2014, 06/06/2014, Additional history exists eGFR 04/29/2025 04/29/2024, 04/03, [...] Procedure Name Priority Date/Time Associated Diagnosis Comments HEPATITIS C RNA, QUANTITATIVE, PCR Routine 09/12/2024 12:00 PM SECTION GANG HEMOGLOBIN A1C Routine 04/30/2024 4:35 AM CDT EGFR STAT 04/29/2024 10:16 AM CDT SERUM LIPID PANEL Routine 09/21/2015 11: 19 AM SECTION GANG from Last 3 Months or Most Recently Relevant to Health Maintenance Results * Hepatitis C (HCV) RNA PCR, quantitative Blood (09/12/2024 12:00 PM SECTION GANG) [facility] HCV RNA result Not Detected [facility] Comment: The quantifiable range of this assay is 15 IU/mL to 100,000,000 IU/mL (1.18 log IU/mL to 8.00 log IU/mL). Testing was performed by the [employer]ACE[employer] 6800 HCV Test ([employer] Testing performed at [facility] Current Interpretive Data was last revised on 2021 Testing performed by: [facility], [address], [place]., [address] Blood 09/12/2024 12:0 0 PM SECTION GANG 09/12/2024 4:24 PM SECTION GANG Martha Weston MD LAB MICROBIOLOGY - GENERAL ORDERABLES Final Result Performing Organization Address City/[facility]/ZIP Co de Phone Number [facility] [address] [place] [address] [facility] * (ABNORMAL) Hemoglobin A1c (04/30/2024 4:35 AM CDT) Pathologist [facility] Hgb A1C 7.1(H) 4.0 - 5.6 % Estimated Average Glucose 157 mg/dL [facility] Comment: The ADA recommends reporting an [...] MD LAB BLOOD ORDERAB LES Final Result [facility] [address] [facility] [place] [address] * eGFR (04/29/2024 10:16 AM CDT) Pathologist [facility] eGFR >90 >=60 mL/min/1. 73 m2 Comment: [...] MD LAB BLOOD HUMBERTO BARROW Final Result [facility] Department [place] [address] * Serum lipid panel (09/21/2015 11:19 AM SECTION GANG) Pathologist [facility] Cholesterol 177 <=199 mg/dl HISTORICAL RESULTS Comment: [...] on 2013. Serum 09/21/2015 11:1 9 AM SECTION GANG us Historical Provider LAB BLOOD ORDERABLES Korin ochoa Result HISTORICAL RESULTS from Last 3 Months or Most Recently Relevant to Health Maintenance Insurance [facility] [address] [employer] H[employer]/PPO Address: [address] [address] [place] [address] [facility] [employer] [facility] H[employer]/PPO Address: [facility] [address] [place] [address] [facility] Advance Directives For more information, please contact: [phone] * Full Code (Latest Code Status on File) Date Activated Date Inactivated Comments 04/29/2024 3:15 PM 05/03/2024 9:43 PM * Full Code Date Activated Date Inactivated Comments 04/29/2024 11:06 AM 04/29/2024 3:15 PM Full CPR in case of cardiopulmonary arrest * Full Code Date Activated Date Inactivated Comments 01/29/2024 6:31 PM 01/30/2024 4:14 PM Care Teams Clearance Coordinator Relationship Specialty Start Date End Date Moody Beltran MD [address] [address] PCP - General Family Medicine 10/31/22
--- OUTSIDE RECORDS SUMMARY | 2025-01-03 18:25 | XMS_ITS | Encounter Summary ---
Author Organization [facility] Address [address] [place] [address] Phone Care Team Providers Care Administrative Asst Name Role Phone Moody Beltran MD Primary Care Provider [phone] Jai Naidu MD Unavailable [phone] Rachel Sommer MD Unavailable Reason for Visit * Reason Comments Medication Refill Encounter Details Date Type Department Care Team (Late st Contact Info) Description 04/25/2023 Refill [facility] - Endocrinology [facility] [address] [place] [address] Rachel Sommer MD [address] [address] Medication Refill Social History Tobacco [...] Miscellaneous Notes * Telephone Encounter - Yarelis Garcia, RN - 04/27/2023 8:20 AM CDT Requested Prescriptions Pending Prescriptions Disp Refills ??? OneTouch Verio Strip [Pharmacy Med Name: ONE TOUCH VERIO TEST STRIP] 300 Strip 5 Sig: TEST BLOOD GLUCOSE 4X DAILY. Next appt: 07/06/2023 documented in this encounter Plan of Treatment Upcoming Encounters Date Type Department Care Team (Latest Contact Info) Description 01/19/2025 8:45 AM CDT Outpatient Clinic Visit [facility] [address] [place] [address] Val Pemberton, [facility] [address] [place] [address] Discharge Disposition: Discharged to home or Selfcare documented as of this encounter Visit Diagnoses Not on filedocumented in this encounter Care Teams Administrative Asst Relationship Specialty Start Date End Date Moody Beltran MD [address] [address] PCP - General Family Medicine 02/13/21 Jai Naidu MD [address] [address] Consulting Physician General Surgery 10/11/21 Rachel Sommer MD [address] [address] Consulting Physician Endocrinology 01/30/22 documented as of this encounter
--- OUTSIDE RECORDS SUMMARY | 2025-01-03 18:25 | XMS_ITS | Clinical Summary ---
Author Organization [facility] Address [address] [place] [address] Phone Care Team Providers Care Manager Dish Name Role Phone Moody Beltran MD Primary Care Provider [phone] Jai Naidu MD Unavailable Rachel Sommer MD Unavailable Allergies Active Allergy [...] ype 1 diabetes mellitus with hyperglycemia (HCC) [place] with needle, adhesive patch, and tubing. Change every 3 days and as needed. 30 Each 1 Active Desogestrel-Ethin yl Estradiol 0.15-30 MG-MCG Tablet Take 1 Tablet by mouth daily. Active Skin Protectants, Misc. (No-Sting Skin-Prep) Misc 1 Each by Apply externally route every 10 days. Apply skin barrier prior to application of Dexcom sensor. 30 Each 3 3 Active OneTouch Verio Strip TEST BLOOD GLUCOSE 4X DAILY. 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 270 Capsule 2 4 Active Blood Glucose Monitoring Suppl (Stadion Money ManagementTouch Verio) w/Device KitIndications:Ty pe 1 diabetes mellitus on insulin therapy (HCC) 1 Kit by Does not apply route 4 times daily. Test blood glucose 4x daily. E10.9. 1 Kit 4 Active Glucose Blood (Stadion Money ManagementTouch Verio) StripIndications: Type 1 diabetes mellitus on insulin therapy (HCC) Use as directed to check blood sugar 4 times daily. Dx: E10.9 250 Strip 11 4 Active OneTouch Delica Lancets 33G MiscIndications:T ype 1 diabetes mellitus on insulin therapy (HCC) 1 Lancet by Does not apply route 4 times daily. Test blood glucose 4x daily. 400 Lancet 3 4 Active Continuous Blood Gluc Software Intern (Dexcom G7 Software Intern) Device Check blood sugar before each meal and at bedtme 1 Each 4 Active pyridoxine (VITMAIN B-6) 25 MG TabletIndications :Nausea Take 1 Tablet by mouth 3 times daily as needed (nausea). 30 Tablet 4 Active Aspirin Low Dose 81 MG Tablet Delayed Response TAKE 1 TABLET (81 MG) BY ORAL ROUTE ONCE DAILY STARTING AT 12 WEEKS AND THROUGH DELIVERY 4 Active insulin lispro (HumaLOG) 100 UNIT/ML SolutionIndicatio ns:Type 1 diabetes mellitus with hyperglycemia (HCC) Per insulin pump setting, up to 100 units a day 100 mL 5 Active hydrOXYzine (ATARAX) 25 MG TabletIndications :Anxiety and depression Take 1 Tablet by mouth every 8 hours as needed for Anxiety. 30 Tablet 5 Active Continuous Glucose Sensor (Dexcom G7 Sensor) Misc Every 10 days 9 Each 1 5 Active sertraline (ZOLOFT) 100 MG Tablet Take 2 Tablets by mouth daily. 180 Tablet 3 5 Active Continuous Glucose Sensor (Dexcom G7 Sensor) Misc 1 Each by Does not apply route every 10 days. 9 Each 1 5 Active Active Problems Problem Noted Date [...] Encounters Date Type Department Care Team Description 12/11/2024 Telephone [facility] Endocrinology - [place] [address] [place] [address] Rachel Sommer MD Results 12/07/2024 11:30 AM CDT Office Visit [facility] Endocrinology [facility] [address] [place] [address] Rachel Sommer MD Type 1 diabetes mellitus with hyperglycemia (HCC) (Primary Dx); Class 2 severe obesity due to excess calories with serious comorbidity and body mass index (BMI) of 35.0 to 35.9 in adult (HCC); Hypoglycemia Discharge Disposition: Discharged to home or Selfcare 12/07/2024 Telephone [facility] [address] [place] [address] Rachel Sommer MD Results 12/07/2024 Travel 12/01/2024 MyChart RX Renewal [facility] [address] [facility] [address] Rachel Sommer MD Medication Renewal Reviewed 11/19/2024 MyChart RX Renewal [facility] Endocrinology [facility] [address] [place] [address] Rachel Sommer MD Medication Renewal Reviewed 11/06/2024 MyChart RX Renewal [facility] [address] [place] [address] Rachel Sommer MD Medication Renewal Reviewed 10/17/2024 11:15 AM CDT Outpatient Clinic Visit [facility] [address] [place] [address] Val Pemberton, BRANDS EDITOR ESTEFANY (generalized anxiety disorder) (Primary Dx) Discharge Disposition: Discharged to home or Selfcare 10/17/2024 Travel 10/17/2024 MyChart RX Renewal [facility] Family Medicine [facility] [address] [place] [address] Flaquita Fernandez, CALENDER MACHINE OPERATOR, PRICER BAGGER Medication Renewal Reviewed 10/17/2024 MyChart RX Renewal [facility] [address] [place] [address] Rachel Sommer MD Medication Renewal Reviewed from Last 3 Months Immunizations Immunization Administration Dates Next Due DTAP VACCINE 11/24/2000,08/04/2000,10/31/1997 DTAP/HIB COMBINED VACCINE 01/12/1998,1996 DTP Vaccine 1996,1996 DTP-Hib 01/31/1997,1996,1996 HIB Vaccine (PRP-T) 1996,1996 Hepatitis A, Pediatric, Unsp ecified Formulation 01/14/2008,01/06/2007 Hepatitis B Vaccine, Pediatric/adolescent 1996,1996 Hepatitis B Vaccine,unspecif ied Formulation 04/05/1997,1996,1996 Hib Vaccine,unspecified Formulation 10/31/1997 Hpv, Unspecified Formulation 01/31/2011,02/23/20 10 Human Papillomavirus Vaccine (HPV), quadrivalent 01/20/2012,09/08/2008 Inactivated Polio Vaccine 11/24/2000,08/04/2000 Influenza Vaccine 05/10/2013 Influenza Vaccine Quadrivalent Nasal 06/06/2014 Influenza Vaccine, Quadrivalent, PF 05/03/2016 Influenza Vaccine,unspecifie d Formulation 05/10/2013 MMR Vaccine 11/24/2000, 1,08/22/1997,04/14 Meningococcal MCV4O 02/18/2013 Meningococcal Vaccine 01/21/2008 Meningococcal Vaccine, Unspe cified Formulation 02/19/2009 OPV 01/12/1998, 7,1996,09/07,1996 Pneumococcal Vaccine - 13 Valent 09/04/2018 Pneumococcal Vaccine Adult - 23 Valent 9 Polio Vaccine,unspecified Formulation 1996 ,1996 TDAP Vaccine 03/02/2024, 0,05/10/2013,01/20,05/05/2006 Varicella Vaccine Live 01/21/2008,05/23/1997 Family History Medical History Relation Name Comments [...] pur e alcohol) once every few weeks [facility] Utilities Answer Date Recorded In the past 12 months has [employer], gas, oil, or water [employer] threatened to shut off services in your home? No 08/23/2024 Social Connection and Isolation Panel [NHANES] A nswer Date Recorded In a typical week, how many times do you talk on the phone with family, friends, or neighbors? Twice a week 08/23/2024 How often do you get together with friends or re latives? Once a week 08/23/2024 How often do you attend yarsanism or episcopal serv ices? Never 08/23/2024 Do you belong to any clubs o r organizations such as yarsanism groups, unions, fraternal or athletic groups, or [...] Total Score - Questions 1-9 3 08/04 [facility] - Occupational Stress [...] place to sleep or slept in a assisted (including now)? No 09/07/2023 Housing Stability Vital Sign Answer Peterson e Recorded In the last 12 months, was t here a time when you were not able to pay the mortgage or rent on time? No 08/23/2024 In the past 12 months, how m any times have you moved where you were living? 1 08/23/2024 At any time in the past 12 m [facility], were you homeless or living in a assisted (including now)? No 08/23/2024 Sexually Active Control Partners Comments Yes Oral Contraceptive Male Comments Unknown Sex and Gender Information Value Date Recorded Sex Assigned at Not on file Legal Sex Female 7:44 PM CDT Gender Identity Not on file Sexual Orientation Not on file Last Filed Vital Signs Vital Sign Reading Time Taken Comments Blood Pressure 120/68 12/07/2024 11:21 AM CDT Pulse 104 12/07/2024 11:21 AM CDT Temperature 36.4 C (97.5 F) 12/07/2024 11:21 AM CDT Respiratory Rate 22 12/07/2024 11:2 1 AM CDT Oxygen Saturation 98% 12/07/2024 11: 21 AM CDT Inhaled Oxygen Concentration - - Weight 103.1 kg (227 lb 6.4 oz) 025 11:21 AM CDT Height 170.2 cm (5' 7) 12/31/2023 10:4 6 AM CDT Body Mass Index 35.62 12/31/2023 10:46 AM CDT Plan of Treatment Upcoming Encounters Date Type Department Care Team (Latest Contact Info) Description 01/19/2025 8:45 AM CDT Outpatient Clinic Visit [facility] [address] [place] [address] Val Pemberton, BRANDS EDITOR [address] [place] [address] Discharge Disposition: Discharged to home or Selfcare Health Maintenance Due Date Last Done Comments Diabetes: Eye Exam 1996 Pap Smear 03/22/2022 03/22/2019 SARS-COV-2 Immunization ( season) 2024 04/30/2021 Diabetes: Nephropathy Screening 07/05/2024 07/05/2023, 09/05/2022, 11/11/2017, Additional history exists Influenza Immunization (Season Ended) 2025 05/03/2016, 06/06/2014, 05/10/2013, Additional history exists Diabetes: Hemoglobin A1c 06/09/2025 025, 09/05/2024, 04/30/2024, Additional history exists Diabetes: Foot Exam 12/07/2025 12/07/2024, 10/16/2023, 10/16/2023 DTaP/Tdap/Td Immunization (11 - Td or Tdap) 03/02/2034 03/02/2024, 11/08/2019, 05/10/2013, Additional history exists Pneumococcal Immunization Combined (3 of 3 - PCV20 or PCV21) 2046 04/28/2019, 09/04/2018 Respiratory Syncytial Virus (RSV) Immunization (Adult) (1 - 1-dose 75+ series) 2071 Hepatitis B Immunization Completed 997, 1996, 1996, Additional history exists Human Papillomavirus (HPV) Immunization Completed 01/20/2012, 01/31/2011, 02/22/2010, Additional history exists Meningococcal [...] Health Improving( 11:35 AM CDT) Yes Val Pemberton LCSW Note: Goal/Objective: Improve coping with her mother and improve communication and boundaries with her. Anticipated Time Frame for Goal Completion: 6 months Goal Reviewed with: patient Readiness to change: Ready to change Department associated with goal: [facility] Steps to achieve goal: [...] Health Improving( 11:34 AM CDT) Yes Val Pemberton LCSW Note: Goal/Objective: Decrease distorted or defensive anxious thoughts that are unhealthy for relationships, especially the marriage. Anticipated Time Frame for Goal Completion: 6 months Goal Reviewed with: patient Readiness to change: Ready to change Department associated with goal: [facility] Steps to achieve goal: [...] Associated Diagnosis Comments POCT GLYCOSYLATED HEMOGLOBIN Routine 12/07/2024 11:25 AM CDT Type 1 diabetes mellitus with hyperglycemia (HCC) CMP (COMPREHENSIVE METABOLIC PANEL) STAT 07/05/2023 1:21 PM DECKHAND CRAB BOAT from Last 3 Months or Most Recently Relevant to Health Maintenance Results * (ABNORMAL) POCT GLYCOSYLATED HEMOGLOBIN (12/07/2024 11:25 AM CDT) HGB-A1C 7.1(A) 4 - 6 % Blood 12/07/2024 11:2 5 AM CDT Rachel Sommer MD POINT OF CARE TESTING (MANUAL) F inal Result * (ABNORMAL) Comprehensive Metabolic Panel (Cmp) [id number] (07/05/2023 1:21 PM DEC[facility] CR[facility] BOAT) [facility] SODIUM 134(L) 136 - 145 mmol/L 07/05/2023 2:02 PM [facility] POTASSIUM 4.2 3.5 - 5.1 mmol/L 07/05/2023 2:02 PM [facility] CHLORIDE 100 98 - 107 mmol/L 07/05/2023 2:02 PM [facility] CO2, VENOUS 21(L) 22 - 30 mmol/L 07/05/2023 2:02 PM [facility] ANION GAP 17.2 <18.0 mmol/L 07/05/2023 2:02 PM [facility] GLUCOSE 234(H) 70 - 99 mg/dL 07/05/2023 2:02 PM [facility] BUN 25(H) 5 - 18 mg/dL 07/05/2023 2:02 PM [facility] CREATININE, BLOOD 1.45(H) 0.60 - 1.00 mg/dL 07/05/2023 2:02 PM [facility] BUN/CREATININE RATIO 17 12 - 20 ratio 07/05/2023 2:02 PM [facility] TOTAL PROTEIN 8.1 6.3 - 8.2 g/dL 07/05/2023 2:02 PM [facility] ALBUMIN 4.1 3.5 - 5.0 g/dL 07/05/2023 2:02 PM [facility] A/G RATIO 1.0 1.0 - 2.2 07/05/2023 2:02 PM [facility] CALCIUM 8.9 8.7 - 10.5 mg/dL 07/05/2023 2:02 PM [facility] T BILI 0.7 0.2 - 1.2 mg/dL 07/05/2023 2:02 PM [facility] SGOT (AST) 987(H) 5 - 34 U/L 07/05/2023 2:02 PM [facility] SGPT (ALT) 309(H) 0 - 55 U/L 07/05/2023 2:02 PM [facility] ALKALINE PHOSPHATASE 83 40 - 150 U/L 07/05/2023 2:02 PM [facility] GFR, ESTIMATED 51(L) >=60 07/05/2023 2:02 PM [facility] Comment: Creatinine Clearance is the preferred criteria for selecting drug dose adjustments in renally impaired patients. The GFR is provided as additional pertinent clinical information. GFR is reported in mL/min/1.73 sq m. Calculation based on the Chronic Kidney Disease Epidemiology Collaboration (CKD- EPI) equation refit without adjustment for race. GFR, EST. 52(L) >=60 023 2:02 PM [facility] GFR, EST. NONAFRICAN 43(L) >=60 07/05/2023 2:02 PM [facility] Blood Venipuncture / Unknown 07/05/2023 1:21 PM [facility] 07/05/2023 1:31 PM [facility] us Cande Borrego CALENDER MACHINE OPERATOR, PRICER BAGGER CHEMISTRY ORDERABLES Final Result [facility] [address] [facility] [place] [address] from Last 3 Months or Most Recently Relevant to Health Maintenance Insurance MEDICAID [facility] MEDICAID [facility] [employer] [employer] Care Teams Manager Dish Relationship Specialty Start Date End Date Moody Beltran MD #[address] [facility] [address] [place] [address] PCP - General Family Medicine 02/13/21 Jai Naidu MD #[address] [facility] [address] [place] [address] Consulting Physician General Surgery 10/11/21 Rachel Sommer MD #[address] [facility] [address] [place] [phone] Consulting Physician Endocrinology 01/30/22
--- OUTSIDE RECORDS SUMMARY | 2025-01-03 18:25 | XMS_ITS | Referral Summary ---
Author Organization [address] Address [address] [place] [address] Care Team Providers Care Front Desk Supervisor Name Role Phone Moody Beltran MD Primary Care Provider [phone] Encounters Date Type Department Care Team Description 10/06/2024 2:00 PM DAMAGE INSIDE ADJUSTER Office Visit [facility] [address] [place] [address] Outpatient Health 3rd Floor [address] [place] [address] Nicolle Munoz MD Follow-up examination (Primary Dx) from Last 3 Months Allergies Active Allergy Reactions Criticality Noted Date Comments Casein Stomach upset Low 01/12/2018 Lactose Diarrhea Low 06/01/2019 Medications blood glucose diagnostic (glucose blood) strip 1 each by Not Applicable route 9 Active [facility] 0 Active Dexcom G7 Cook Jelly [facility] 4 Active glucagon 1 mg kit Inject [...] Sensor device Use with the Dexcom G7 support specialist to monitor blood glucose values continuously. Change [...] laparoscopic bilateral salpingectomy. - Blood, procedure, and [place] Medicaid consents signed. Prep for case submitted [...] to set up f/u visit with primary metalizing machine operator automatic Rachel Sommer ([place] [facility]) # Anxiety/Depression: in therapy, on zoloft [...] # Disposition: Follow up task sent to [facility] scheduling pool. Desires discharge home today. Gallstones 01/20/2024 Overview (01/20/2024): Seen in [facility] on 12/17 with abdominal pain and RUQ US showed gallstones. We discussed avoiding fatty and fried foods to limit biliary colic. Assessment & Plan (02/06/2024 1:14 AM CDT): Seen in [facility] on 12/17 with abdominal pain and [...] 11/10/2023 Overview (07/25/2024): Care Dexcom Share code: [email or web address] T-connect (switched to control-IQ and sleep mode on 7 PM!) [email or web address]: [email or web address] Password: [email or web address] Current settings 07/25/2024 Work on [...] A1C: 8.1% on 10/28 > 7.1% 01/19 [employer] Share code: [email or web address] T-connect (switched to control-IQ and sleep mode on 01/31 PM!) Username: [email or web address] Password: [email or web address] Current settings: 02/05/2024- T slim, sleep mode [...] trimester 11/10/2023 05/26/2024 Overview (04/27/2024): [x] Full [facility] Care; [] Blue Team- full transfer of care to [facility] as of 11/26/23, email sent to [email or web address] [x]Red team Referring Provider: Leonor Huang [phone] [x] Dating Criteria: [place] 10/29/23 with JOSE [...] with reflex/A1C: external lab, [facility] [place]-we have attempted to get the results and [...] would like to attempt breast feeding. [x] Program Engineer: discussed [] PP Depression Discussed: Assessment & Plan (03/30/2024 5:37 PM CDT): [x] Full [facility] Care; [] Blue Team- full transfer of care to [facility] as of 11/26/23, email sent to [facility] [x]Red team Referring Provider: Leonor Huang [phone] [x] Dating Criteria: [place] 10/29/23 with JOSE [...] drink = 0.6 oz pur e alcohol) [employer] Answer Date Recorded In the past 12 months has [employer], gas, oil, or water [employer] threatened to shut off services in your [...] week 04/30/2024 How often do you attend [facility] or lutheran services? Never 04/30/2024 Do you belong to any clubs o r organizations such as mormon groups, unions, fraternal or athletic groups, or [...] things needed for daily living? No 04/30/2024 Clyman Depression Scale Answer Date Recorded Clyman Depression Scale Total 15 06/16/2024 The thought [...] any time in the past 12 m [facility], were you homeless or living in a care home (including now)? No 04/30/2024 Personal Safety Answer Date Recorded Have you ever been in or are you currently in a harmful physical or emotional relationship or is someone making you feel afraid or unsafe? Denies 09/13/2024 Comments No Sex and Gender Information Value Date Recorded Sex Assigned at Not on file Legal Sex Female 7:38 PM DAMAGE INSIDE ADJUSTER Gender Identity Not on file Sexual Orientation Not on file Last Filed Vital Signs Vital Sign Reading Time Taken Comments Blood Pressure 134/70 10/06/2024 2:07 PM DAMAGE INSIDE ADJUSTER Pulse 104 10/06/2024 2:07 PM DAMAGE INSIDE ADJUSTER Temperature 37 C (98.6 F) 09/13/2024 6:20 PM DAMAGE INSIDE ADJUSTER Respiratory Rate 18 10/06/2024 2:07 PM DAMAGE INSIDE ADJUSTER Oxygen Saturation 98% 10/06/2024 2:07 PM DAMAGE INSIDE ADJUSTER Inhaled Oxygen Concentration - - Weight 102.5 kg (226 lb) 10/06/2024 2:07 PM DAMAGE INSIDE ADJUSTER Height 172.7 cm (5' 8) 10/06/2024 2:07 PM DAMAGE INSIDE ADJUSTER Body Mass Index 34.36 10/06/2024 2:07 PM DAMAGE INSIDE ADJUSTER Plan of Treatment Not on file Procedures Procedure Name Priority Date/Time Associated Diagnosis Comments HEPATITIS C RNA, QUANTITATIVE, PCR Routine 09/12/2024 12:00 PM DAMAGE INSIDE ADJUSTER HEMOGLOBIN A1C Routine 04/30/2024 4:35 AM CDT EGFR STAT 04/29/2024 10:16 AM CDT SERUM LIPID PANEL Routine 09/21/2015 11: 19 AM DAMAGE INSIDE ADJUSTER from Last 3 Months or Most Recently Relevant to Health Maintenance Results * Hepatitis C (HCV) RNA PCR, quantitative Blood (09/12/2024 12:00 PM DAMAGE INSIDE ADJUSTER) [facility] HCV RNA result Not Detected [facility] Comment: The quantifiable range of this assay is 15 IU/mL to 100,000,000 IU/mL (1.18 log IU/mL to 8.00 log IU/mL). Testing was performed by the TRACEY 6800 HCV Test ([employer] Testing performed at [facility] Current Interpretive Data was last revised on 2021 Testing performed by: [facility], [address] [place]., [address] Blood 09/12/2024 12:0 0 PM DAMAGE INSIDE ADJUSTER 09/12/2024 4:24 PM DAMAGE INSIDE ADJUSTER us Martha Weston MD LAB MICROBIOLOGY - GENERAL ORDERABLES Final Result [facility] [address] [facility] [place] [address] [facility] * (ABNORMAL) Hemoglobin A1c (04/30/2024 4:35 AM CDT) Hgb A1C 7.1(H) 4.0 - 5.6 % Estimated Average Glucose 157 mg/dL [facility] Comment: The ADA recommends reporting an estimated [...] LAB BLOOD ORDERAB LES Final Result MARIANA [facility] [place] [address] * eGFR (04/29/2024 10:16 AM CDT) eGFR [...] us Mica Chary Gray MD LAB BLOOD MICHAELNahid RUIZNASIR Final Result [facility]IANA REIS [facility] [place] [address] * Serum lipid panel (09/21/2015 11:19 AM DAMAGE INSIDE ADJUSTER) Cholesterol 177 <=199 mg/dl HISTORICAL RESULTS Comment: [...] on 2013. Serum 09/21/2015 11:1 9 AM DAMAGE INSIDE ADJUSTER us Historical Provider LAB BLOOD ORDERABLES Korin ochoa Result HISTORICAL RESULTS from Last 3 Months or Most Recently Relevant to Health Maintenance Insurance [employer] [employer] Member Subscriber Plan / Payer (Ef fective 2023-Present) Name:Chelly Fernandez Relation to Subscriber:Self Name:Chelly Fernandez Payer ID:[id number] (NAIC) Type:[facility] HMO/PPO Address: [address] [employer] Advance Directives For more information, please contact: [phone] * Full Code (Latest Code Status on File) Date Activated Date Inactivated Comments 04/29/2024 3:15 PM 05/03/2024 9:43 PM * Full Code Date Activated Date Inactivated Comments 04/29/2024 11:06 AM 04/29/2024 3:15 PM Full CPR in case of cardiopulmonary arrest * Full Code Date Activated Date Inactivated Comments 01/29/2024 6:31 PM 01/30/2024 4:14 PM Care Teams Front Desk Supervisor Relationship Specialty Start Date End Date Moody Beltran MD [address] [address] PCP - General Family Medicine 10/31/22
--- OUTSIDE RECORDS SUMMARY | 2025-01-03 18:26 | XMS_ITS | Encounter Summary ---
Author Organization [facility] Address [address] [place] [address] Phone Care Team Providers Care Underground Heavy Equipment Operator Name Role Phone Moody Beltran MD Primary Care Provider [phone] Jai Naidu MD Unavailable [phone] [phone] Rachel Sommer MD Unavailable Reason for Visit * Reason Comments Medication Refill Encounter Details Date Type Department Care Team (Late st Contact Info) Description 04/15/2022 [facility]ill [facility] #2 [place] [address] Moody Beltran MD #[address] [address] Medication Refill Social History Tobacco Use Types [...] 09/30/21 Office Visit Anastacio James APRN, RUFINO [facility] 08/22/21 Telemedicine Moody Beltran MD [facility] 05/21/21 Office Visit Moody Beltran MD [facility] 04/15/21 Office Visit Anastacio James APRN, FLOOR STEWARD/STEWARDESS [facility] Showing recent visits within past 365 days and meeting all other requirements Future Appointments No visits were found meeting these conditions. Showing future appointments within next 90 days and meeting all other requirements documented in this encounter Plan of Treatment Upcoming Encounters Date Type Department Care Team (Latest Contact Info) Description 01/19/2025 8:45 AM CDT [facility] [address] [place] [address] Val Pemberton, TANK SETTER [address] [place] [address] Discharge Disposition: Discharged to home or Selfcare documented as of this encounter Visit Diagnoses Diagnosis Type 1 diabetes mellitus with hyperglycemia (HCC) Type I (juvenile type) diabetes mellitus without mention of complication, not stated as uncontrolled documented in this encounter Care Teams Underground Heavy Equipment Operator Relationship Specialty Start Date End Date Moody Beltran MD #2 [facility] [address] [place], [place] [id number] PCP - General Family Medicine 02/13/21 Jai Naidu MD #2 [facility] [address] [place] [address] Consulting Physician General Surgery 10/11/21 Rachel Sommer MD #2 [facility] [address] [place] [address] Consulting Physician Endocrinology 01/30/22 documented as of this encounter
--- OUTSIDE RECORDS SUMMARY | 2025-01-03 18:26 | XMS_ITS | Encounter Summary ---
Author Organization [facility] Address [address] [place] [address] Phone Care Team Providers Care Gig Tender Name Role Phone Moody Beltran MD Primary Care Provider [phone] Jai Naidu MD Unavailable [phone] [phone] Rachel Sommer MD Unavailable Reason for Visit * Reason Comments Medication Refill Encounter Details Date Type Department Care Team (Late st Contact Info) Description 06/26/2021 Refill [facility] #2 [place] [id number] Anastacio James, ANODE REBUILDER, TECHNICAL INSTRUCTOR #[address] [address] Medication Refill Social History Tobacco Use Types [...] no refill protocol information for this order EAR MEDICINE SPECIALIST documented in this encounter Plan of Treatment Upcoming Encounters Date Type Department Care Team (Latest Contact Info) Description 01/19/2025 8:45 AM CDT [facility] [address] [place] [address] Val Pemberton, [facility] [address]1 [place] [address] Discharge Disposition: Discharged to home or Selfcare documented as of this encounter Visit Diagnoses Diagnosis Type 1 diabetes mellitus with hyperglycemia (HCC) Type I (juvenile type) diabetes mellitus without mention of complication, not stated as uncontrolled documented in this encounter Care Teams Gig Tender Relationship Specialty Start Date End Date Moody Beltran MD #[address] [address] PCP - General Family Medicine 02/13/21 Jai Naidu MD #[address] [address] Consulting Physician General Surgery 10/11/21 Rachel Sommer MD #[address] [address] Consulting Physician Endocrinology 01/30/22 documented as of this encounter
--- OUTSIDE RECORDS SUMMARY | 2025-01-03 18:26 | XMS_ITS | Encounter Summary ---
Author Organization [facility] Address [address] [place] [address] Phone Care Team Providers Care Second Rigger Name Role Phone Moody Beltran MD Primary Care Provider [phone] Jai Naidu MD Unavailable [phone] [phone] Rachel Sommer MD Unavailable Reason for Visit * Reason Comments Medication Refill Encounter Details Date Type Department Care Team (Late st Contact Info) Description 03/17/2021 Refill [facility] #2 [place] [id number] Anastacio James, GEOSPATIAL ENGINEER, GLASS BLOCK BENDER #[address] [address] Medication Refill Social History Tobacco Use Types [...] Type 1 diabetes mellitus with hyperglycemia (HCC) [facility] Anastacio James APN, RUFINO Upcoming Appointments Future Appointments In 3 days Lab, [facility] PHYSICIAN [facility], [facility] In 2 months Moody Beltran MD [facility] STATE MANAGER - Recent and Past Visits Recent Visits Date Type Provider Dept 02/18/21 Office Visit Anastacio James APN, RUFINO [facility] Showing recent visits within past 460 days with a meds authorizing provider and meeting all other requirements Future Appointments Date Type Provider Dept 05/21/21 Appointment Moody Beltran MD [facility] Showing future appointments within next 90 days with a meds authorizing provider and meeting all other requirements documented in this encounter Plan of Treatment Upcoming Encounters Date Type Department Care Team (Latest Contact Info) Description 01/19/2025 8:45 AM CDT Outpatient Clinic Visit [facility] 1 [place] [address] Val Pemberton, LAWYER PROBATE [address] [place] [address] Discharge Disposition: Discharged to home or Selfcare documented as of this encounter Visit Diagnoses Diagnosis Onychomycosis Dermatophytosis of nail documented in this encounter Care Teams Second Rigger Relationship Specialty Start Date End Date Moody Beltran MD #2 [facility] [address] [place] [address] PCP - General Family Medicine 02/13/21 Jai Naidu MD #[address] [address] Consulting Physician General Surgery 10/11/21 Rachel Sommer MD #[address] [address] Consulting Physician Endocrinology 01/30/22 documented as of this encounter
--- OUTSIDE RECORDS SUMMARY | 2025-01-03 18:26 | XMS_ITS | Encounter Summary ---
Author Organization [facility] Address [address] [place] [address] Phone Care Team Providers Care Manager Trust Name Role Phone Moody Beltran MD Primary Care Provider [phone] Jai Naidu MD Unavailable [phone] [phone] Rachel Sommer MD Unavailable Reason for Visit * Reason Comments Medication Refill Encounter Details Date Type Department Care Team (Late st Contact Info) Description 10/23/2021 Refill [facility] #2 [place] [phone] Anastacio James, ENTRY EXAMINER, EMPLOYMENT TRAINING SPECIALIST #[address] [address] Medication Refill Social History Tobacco Use Types [...] COVID-19? No / Unsure 10/07/2021 9:45 AM KEYSEATER OPERATOR documented as of this encounter Miscellaneous Notes [...] 09/30/21 Office Visit Anastacio James APRN, CNP [facility] 08/22/21 Telemedicine Moody Beltran MD [facility] 05/21/21 Office Visit Moody Beltran MD [facility] Showing recent visits within past 182 days and meeting all other requirements Future Appointments No visits were found meeting these conditions. Showing future appointments within next 90 days and meeting all other requirements documented in this encounter Plan of Treatment Upcoming Encounters Date Type Department Care Team (Latest Contact Info) Description 01/19/2025 8:45 AM CDT [facility] 1 [place] [address] Val Pemberton LCSW [address]1 [place] [address] Discharge Disposition: Discharged to home or Selfcare documented as of this encounter Visit Diagnoses Not on filedocumented in this encounter Care Teams Manager Trust Relationship Specialty Start Date End Date Moody Beltran MD #[address] [address] PCP - General Family Medicine 02/13/21 Jai Naidu MD #[address] [address] Consulting Physician General Surgery 10/11/21 Rachel Sommer MD #[address] [address] Consulting Physician Endocrinology 01/30/22 documented as of this encounter
--- OUTSIDE RECORDS SUMMARY | 2025-01-03 18:26 | XMS_ITS | Encounter Summary ---
Author Organization [facility] Address [address] [place] [address] Care Team Providers Care Non Acoustic Operator Name Role Phone [place] Odomcandace Myers APRN-[facility] Primary Care Provi evelina Brandy Smiley MD Unavailable Reason for Visit * Reason Onset Date Comments MEDICATION REFILL 08/26/2023 Encounter Details Date Type Department Care Team (Late st Contact Info) Description 08/26/2023 Refill [facility] - General [facility] [address] [facility], [place] [address] Nasra Swanson MD [address] [place] [address] MEDICATION REFILL Social History Tobacco [...] care, and heating? Not very hard 07/06/2023 [facility] - Occupational Stress [...] the Last Year Not on file 2022 Comments Unknown Sex and Gender Information Value Date Recorded Sex Assigned at Not on file Legal Sex Female 12:41 PM CDT Gender Identity Not on file Sexual Orientation Not on file documented as of this encounter Functional Status * Is person deaf or have serious hearing difficulty? Answer Date of Assessment Author No 07/06/2023 4:59 AM Bear Gonzales Graduate Nurse * Is person blind or have serious difficulty seeing? Answer Date of Assessment Author No 07/06/2023 4:59 AM Bear Gonzales Graduate Nurse * Does person have serious difficulty walking/climbing stairs? Answer Date of Assessment Author No 07/06/2023 4:59 AM Bear Gonzales Graduate Nurse * Does person have difficulty dressing/bathing? Answer Date of Assessment Author No 07/06/2023 4:59 AM Bear Gonzales Graduate Nurse * Does person have difficulty doing errands alone? Answer Date of Assessment Author No 07/06/2023 4:59 AM Bear Gonzales Graduate Nurse documented as of this encounter Mental Status * Does person have difficulty concentrating/remembering/making decisions? Answer Entry Date Author No 07/06/2023 4:59 AM Bear Gonzales Graduate Nurse documented in this encounter Plan of Treatment Not on file documented as of this encounter Visit Diagnoses Not on filedocumented in this encounter Care Teams Non Acoustic Operator Relationship Specialty Start Date End Date Liliana Odom APRN-[employer] FERRY OPERATOR PCP - General 05/24/20 Brandy Smiley MD [address] [place] [address] 05/24/20 documented as of this encounter
--- OUTSIDE RECORDS SUMMARY | 2025-01-03 18:26 | XMS_ITS | Encounter Summary ---
Author Organization [facility] Address [address] [facility] [place] [address] Care Team Providers Care Reliability Engineer Name Role Phone [facility] Primary Care Pro vider Liliana Odom [facility] Primary Care Provi evelina [facility] Primary Care Pro vider Liliana Odom [facility] Primary Care Provi evelina Brandy Smiley MD Unavailable Reason for Visit * Reason Onset Date Comments Pre Appointment Management 11/16/2019 Encounter Details Date Type Department Care Team (Late st Contact Info) Description 11/16/[address] [facility] MATERNAL/ EVALUATION UNIT [address] [place] [address] Mauro Gaston RDMS Pre Appointment Management Social [...] doing screening at the door. Left callback [phone]. documented in this encounter Plan of Treatment Not on file documented as of this encounter Visit Diagnoses Not on filedocumented in this encounter Care Teams Reliability Engineer Relationship Specialty Start Date End Date [facility] [address] [place] [address] PCP - General 09/15/18 11/18/19 Liliana Odom APRN-MIXING SUPERVISOR [address] [place] [address] PCP - General Nurse Practitioner Family 11/19/1904/04 [facility] [address] [place] [address] PCP - General 04/28/20 05/23/20 Liliana Odom APRN-MIXING SUPERVISOR [address] [place] [address] PCP - General 05/24/20 Brandy Smiley MD [address] [place] [address] 05/24/20 documented as of this encounter
--- OUTSIDE RECORDS SUMMARY | 2025-01-03 18:26 | XMS_ITS | Clinical Summary ---
Author Organization [facility] [employer] Address [address] [place] [address] Care Team Providers Care Requirements Engineer Name Role Phone Liliana Odom APRN-[facility] Primary Care Provi evelina Brandy Smiley MD Unavailable Source Comments [facility],non-owned Affiliates and Associated Physician Practices is amultiple site organization consisting of ambulatory clinics and hospital sitesin [place], [place], [place] and [place]. This disclosure is being madepursuant to the Care Everywhere program and may not contain all information available regarding this patient. Last updated 18.[facility] Allergies No known active allergies Medications * Be aware that medications may not be up to date on this document. Alwaysverify current medications with the patient. One Touch Delica Lancets Use 8 times daily while awake 200 Each 11 9 Active blood glucose (ONETOUCH VERIO) test strip Use 1 strip 8 times daily while awake 250 strip 11 9 Active Additional Information Patient taking differently: (No dose reported), Does not apply 8 TIMES DAILY WHILE AWAKE, Reported on 08/12/2023 Continuous Blood Gluc Engineering Mgr (DEXCOM G5 MOBILE MUSEUM REGISTRAR) [facility] Use 1 Each as directed Use IF not using phone 1 device 1 0 Active Continuous Blood Gluc Sensor (DEXCOM G5 MOB/G4 PLAT SENSOR) [facility] Use 1 Each as directed Replace sensor every 10 days. 3 Each 5 0 Active insulin lispro (HUMALOG;ADMEL OG) 100 UNIT/ML pen Inject 50-70 Units subcutaneously [...] is above 160 mg/dl. 8 Pen 5 0 Active insulin lispro (HUMALOG) 100 UNIT/ML vial Inject 80 Units subcutaneously as directed Per insulin pump as directed to meet increasing insulin needs during . 3 vial 4 0 Active docusate sodium (COLACE) 100 MG capsule Take 1 capsule by mouth 2 times daily 60 capsule 1 0 Active polyethylene glycol 3350 (Miralax) 17 g packet Take 17 (seventeen) g by mouth once daily 30 packet 3 Active hydrOXYzine HCl (Atarax) 50 MG tablet Take 1 (one) tablet by mouth 3 times daily 90 tablet 3 Active cyclobenzaprin e (Flexeril) 10 MG tablet Take 1 (one) tablet by mouth 3 times daily as needed for Muscle Spasms 60 tablet 3 Active cyclobenzaprin e (Flexeril) 10 MG tablet Take 0.5 (one-half) tablet by mouth 3 times daily as needed for Muscle Spasms 15 tablet 4 Active gabapentin (Neurontin) 300 MG capsule Take 3 (three) capsules by mouth 3 times daily for 7 days 63 capsule 4 Active Active Problems Patient Care Coordination No te Formatting of this note migh t be different from the original. Diaper bank form completed. Diapers provided at 33 weeks on 11/08/19. Patient did not get screening echocardiogram (maternal T1 Diabetes). If the metal miner evaluating the after has concerns, please feel free to discuss with a director of pediatric rehabilitation at [facility] using the [facility] ( ). Problem Noted Date Diagnosed Date Malingering 07/24/2023 S/P split thickness skin graft 07/22/2023 Post-op pain 07/22/2023 Encounter for management of vacuum-assisted closure (VAC) of wound 07/21/2023 Type 1 diabetes mellitus with hyperglycemia 11/2022 Left leg pain 07/05/2023 Type 1 diabetes mellitus affecting , an tepartum 05/27/2019 Overview (10/12/2019): DM, White Class D Not established with bow tacker. Followed by [facility] during childhood. No routine exercise. Symptomatic in the 80s. Has glucagon. HgbA1c 7.7 (06/16 - wks) HgbA1c 6.8 (09/27) Eye exam: last exam several years ago 24 hr urine: Detailed anatomy screen: echocardiogram 22-28 weeks: Assessment & Plan (08/31/2019 3:22 PM PRINT FINISHING WORKER): Global fasting hyperglycemia noted on glucose logs. [...] Recommend Assessment & Plan (08/17/2019 4:26 PM PRINT FINISHING WORKER): First follow-up consultation visit in two months. [...] to Basaglar and insulin to carb ratio--see entry level sales consultant note; written instructions given to patient 4. [...] Recommend Assessment & Plan (06/08/2019 4:41 PM PRINT FINISHING WORKER): has prolonged periods of time in between meals. Some late dinners with significant hyperglycemia. Fasting values generally appear around noon time. One hypoglycemic value of around noon time. Appears to have evening insulin insensitivity, yet is more sensitive after midnight. Increased glucose and ketones. Plan: Maternal- Medicine to [facility] diabetes Perform 7 blood glucose measurements daily [...] conception glucose control. Plan: Maternal- Medicine to [facility] diabetes Perform 7 blood glucose measurements daily new [...] Nurse Educator will investigate whether or not [employer] insurance would approved an insulin pump and/or [...] Wellbutrin Assessment & Plan (08/31/2019 3:19 PM PRINT FINISHING WORKER): Mood appears acceptable today. Remains at risk for mood deterioration Maternal Medicine recommendations: 1. Encouraged maintaining 1st consultation with a mental health provider 2. reassess mood at visits Assessment & Plan (08/17/2019 4:24 PM PRINT FINISHING WORKER): Reports that her mood is okay. 1. Encouraged maintaining 1st consultation with a mental health provider 2. reassess mood at visits Assessment & Plan (06/08/2019 4:33 PM PRINT FINISHING WORKER): [place] depression Scale score 10/30. Previously had support from a mental health professional, whose contact information she no longer has. Currently does not want medication management. Recommend reassessment of mood a visits and consultations Our office will try to assist Mary with a referral to mental health specialist Assessment & Plan (06/01/2019 5:34 PM CDT): [place] depression Scale score in the range of [...] 11/23/2019 Assessment & Plan (08/31/2019 3:16 PM PRINT FINISHING WORKER): Maternal Medicine recommendations: 1. re-evaluate placentation in two weeks Maternal obesity affecting p regnancy, antepartum 07/21/2023 care following delivery 07/21/2023 Acute blood loss as cause of postoperative anemia 07/21/2023 Immunizations Immunization Administration Dates Next Due INFLUENZA VACCINE 05/10/2013 [...] care, and heating? Not very hard 07/06/2023 [facility] [place] [place] [facility] Occupat ional Health - Occupational Stress [...] Comments Blood Pressure 121/84 09/09/2023 1:26 PM PRINT FINISHING WORKER Pulse 100 09/09/2023 1:26 PM PRINT FINISHING WORKER Temperature 36.2 C (97.2 F) 09/09/2023 1:26 PM PRINT FINISHING WORKER Respiratory Rate 18 08/03/2023 5:18 PM PRINT FINISHING WORKER Oxygen Saturation 99% 09/09/2023 1:26 PM PRINT FINISHING WORKER Inhaled Oxygen Concentration 21% 07/18/2023 1 2:06 AM PRINT FINISHING WORKER Weight 89.8 kg (198 lb) 09/09/2023 1:26 PM PRINT FINISHING WORKER Height 172.7 cm (5' 8) 09/09/2023 1:26 PM PRINT FINISHING WORKER Body Mass Index 30.11 09/09/2023 1:26 PM PRINT FINISHING WORKER Plan of Treatment Health Maintenance Due Date Last Done Comments HEPATITIS B VACCINE (1 of 3 - 19+ 3-dose series) 2015 PNEUMOCOCCAL VACCINE (1 of 2 - PCV) 2015 PAP SMEAR 03/22/2022 03/22/2019 DIABETES RETINOPATHY SCREENING 07/06/2023 DIABETES-FOOT EXAM WITH MONOFILAMENT 07/06/2023 DIABETES-HGB A1C 10/02/2023 04/03/2023, , 03/18/2019, Additional history exists COVID-19 VACCINE ( season) 2024 DEPRESSION SCREENING 08/03/2024 DIABETES - URINE PROTEIN SCREENING 08/03/2024 DIABETES-SERUM CREATININE 08/03/20242023, 07/24/2023, 07/23/2023, Additional history exists INFLUENZA VACCINE (Season Ended) 2025 06/06/2014, 05/10/2013 DTAP/TDAP/TD VACCINES (3 - Td or Tdap) [...] COMPREHENSIVE METABOLIC PANEL STAT 08/03/2023 6:32 PM PRINT FINISHING WORKER HEPATITIS C AB SCREEN RFLX NAAT QUANT STAT 07/05/2023 8:09 PM PRINT FINISHING WORKER HIV-1 HIV-2 ANTIBODY + HIV P24 AG PANEL STAT 07/05/2023 8:09 PM PRINT FINISHING WORKER HEMOGLOBIN A1C Routine 09/27/2019 4:33 PM PRINT FINISHING WORKER , unspecified gestational age PAP LB RFLX HPV ASCU Routine 03/22/2019 11:41 AM CDT Well woman exam from Last 3 Months or Most Recently Relevant to Health Maintenance Results * (ABNORMAL) COMPREHENSIVE METABOLIC PANEL (08/03/2023 6:32 PM PRINT FINISHING WORKER) BUN 13 7 - 26 mg/dL 08/03/2023 7:02 PM [facility] Creatinine 0.90 0.56 - 0.96 mg/dL 08/03/2023 7:02 PM [facility] Sodium 140 136 - 145 mmol/L 08/03/2023 7:02 PM [facility] Potassium 3.9 3.5 - 4.5 mmol/L 08/03/2023 7:02 PM [facility] Chloride 104 98 - 107 mmol/L 08/03/2023 7:02 PM [facility] CO2 26 22 - 29 mmol/L 08/03/2023 7:02 PM [facility] Glucose 102 70 - 115 mg/dL 08/03/2023 7:02 PM [facility] Calcium 9.1 8.4 - 10.2 mg/dL 08/03/2023 7:02 PM [facility] Protein Total 7.0 6.0 - 8.3 g/dL 08/03/2023 7:02 PM [facility] Albumin 3.3(L) 3.4 - 5.0 g/dL 08/03/2023 7:02 PM [facility] Bilirubin Total 0.4 0.2 - 1.2 mg/dL 08/03/2023 7:02 PM [facility] Alkaline Phosphatase 72 40 - 150 U/L 08/03/2023 7:02 PM [facility] ALT 13 5 - 55 U/L 08/03/2023 7:02 PM [facility] AST 19 5 - 34 U/L 08/03/2023 7:02 PM [facility] Anion Gap 10 6 - 16 08/03/2023 7:02 PM [facility] BUN/Creatinine Ratio 14 7 - 23 08/03/2023 7:02 PM [facility] Osmolality Calculated 290 275 - 295 mOsm/kg 08/03/2023 7:02 PM [facility] Albumin/Globulin Ratio 0.9(L) 1.1 - 2.3 08/03/2023 7:02 PM [facility] eGFR by CKD-EPI 90 >=90 mL/min/1.7 3 m2 08/03/2023 7:02 PM [facility] Blood BLOOD SPECIMEN / Unknown Venipuncture / Unknown 08/03/2023 6:32 PM PRINT FINISHING WORKER 08/03/2023 6:36 PM PRINT FINISHING WORKER Fred Chatterjee MD LAB - CHEMISTRY ORDERABLES Fi nal Result Performing Organization Address City/[facility]/ZIP Co de Phone Number [address] [address], [facility] [phone] * HEPATITIS C AB SCREEN RFLX NAAT QUANT (07/05/2023 8:09 PM PRINT FINISHING WORKER) Hepatitis C Antibody Non-react shannan Non-reac tive 07/05/2023 9:10 PM PRINT FINISHING WORKER [facility] Comment:Hepatitis C Antibody screen indicates no serologic evidence of past or current infection with Hepatitis C Virus. Patients with unexplained liver disease who are immunocompromised or suspected of having acute Hepatitis C infection may benefit from Nucleic Acid Test (JUAN) for Hepatitis C Viral RNA to confirm Hepatitis C status. Blood BLOOD SPECIMEN / Unknown Venipuncture / Unknown 07/05/2023 8:09 PM PRINT FINISHING WORKER 07/05/2023 8:23 PM PRINT FINISHING WORKER Kristopher Haddad MD LAB - CHEMISTRY ORDERABLES F inal Result Performing Organization Address [facility] Co de Phone Number [address] [address], [facility] [phone] * HIV-1 HIV-2 ANTIBODY + HIV P24 AG PANEL (07/05/2023 8:09 PM PRINT FINISHING WORKER) HIV Antigen/Antibod y 1 & 2 Non-reacti ve Non-react shannan 07/05/2023 9:10 PM PRINT FINISHING WORKER [facility] Comment:No Laboratory eviden ce of HIV infection. Blood BLOOD SPECIMEN / Unknown Venipuncture / Unknown 07/05/2023 8:09 PM PRINT FINISHING WORKER 07/05/2023 8:23 PM PRINT FINISHING WORKER Kristopher Haddad MD LAB - CHEMISTRY ORDERABLES F inal Result Performing Organization Address City/[facility]/ZIP Co de Phone Number [address] [address] [phone] * (ABNORMAL) HEMOGLOBIN A1C (09/27/2019 4:33 PM PRINT FINISHING WORKER) Hemoglobin A1c 6.8(H) 4.2 - 5.6 % 09/27/2019 8:55 PM PRINT FINISHING WORKER [facility] Estimated Average Glucose 148 mg/dL 09/27/2019 8:55 PM PRINT FINISHING WORKER [facility] Blood BLOOD SPECIMEN / Unknown Venipuncture / Unknown 09/27/2019 4:33 PM PRINT FINISHING WORKER 09/27/2019 5:11 PM PRINT FINISHING WORKER Narrative [facility] - 09/27/2019 8:55 PM PRINT FINISHING WORKER The following cutoff levels are recommended by [employer]. A1c > 6.5% : considered [...] the specimen. Jade Ospina MD LAB - CHEMISTRY ORDER TEN Final Result [facility] [address] [place] [address] * (ABNORMAL) PAP LB RFLX HPV ASCU (03/22/2019 11:41 AM CDT) Diagnosis Comment(A) 03/28/2019 5:07 PM CDT [facility] ([facility] Comment: EPITHELIAL CELL ABNORMALITY. ATYPICAL SQUAMOUS CELLS OF UNDETERMINED SIGNIFICANCE (ASC-US). Specimen Adequacy Comment 019 5:07 PM CDT [facility] ([facility] Comment: Satisfactory for evaluation. Endocervical and/or squamous metaplastic cells (endocervical component) are present. Performed by Comment 03/28/2019 5:07 PM CDT [facility] ([facility] Comment:Emanuel Daomn , Organic Gardening Teacher (ASCP) Electronically Signed by Comment 03/28/2019 5:07 PM CDT [facility] Comment:Elva Anton MD, Pathologist Comment . 03/28/2019 5:07 PM CDT [facility]) Pathologist Provided ICD10 Comment 03/28/2019 5:07 PM CDT [facility] Comment:R87.610 Note Comment 03/28/2019 5:07 PM CDT [facility] Comment: The Pap smear is a screening test designed to aid in the detection of premalignant and malignant conditions of the uterine cervix. It is not a diagnostic procedure and should not be used as the sole means of detecting cervical cancer. Both false-positive and false-negative reports do occur. Note Comment 03/28/2019 5:07 PM CDT [facility] ([facility] Comment:See below for HPV te sting results. Pathology/Cytolo gy ENTIRE ENDOCERVIX / Unknown Collection / Unknown 03/22/2019 11:41 AM CDT 03/22/2019 11:47 AM CDT Narrative [facility] ([facility]) - 03/28/2019 5:07 PM CDT Performed at: - [address] [place] [id number] Director Acute: Elva Anton MD, Phone: [phone] Performed at: - [address] [id number] Director Acute: Poly Duggan MD, Phone: [phone] Specimen Comment: Source.............Endocervix Specimen Comment: No. of containers..01 ThinPrep Vial Jade Munoz MD LAB - PATHOLOGY/CYTOLOGY ORDERABLES Final Result [facility] ([facility]) [address] [place] [address] from Last 3 Months or Most Recently [...] 3:26 PM 12/01/2019 8:07 AM Care Teams Requirements Engineer Relationship Specialty Start Date End Date Liliana Odom APRN-PLANT ASSOCIATE PCP - General 05/24/20 Brandy Smiley MD [address] [place] [address] 05/24/20
[2025-01-03 18:31] VITALS: BP 123/81; PULSE 93; RESP 18; TEMP 36.8; O2SAT 98
--- NOTE | 2025-01-03 19:04 | ED.GENADULT ---
HPI - General Adult General Chief complaint: Ear Stated complaint: Left Ear Pain Source: patient Mode of arrival: ambulatory Limitations: no limitations History of Present Illness HPI narrative: Patient presents for evaluation left-sided ear pain. Symptom onset today. She feels a popping sensation in her ear with sneezing and coughing. She does report a mild cough. No fever, chills, sore throat, nausea, vomiting, diarrhea. Her daughter has been sick with a respiratory infection. She does vape. She has not taken any medications to assist with her symptoms. She has underlying DM but states home BS normal. Related Data Home Medications ?Medication ?Instructions ?Recorded ?Confirmed ?Last Taken ?Type blood sugar diagnostic (OneTouch 11/27/21 11/27/21 Unknown History Verio test strips) blood-glucose sensor (Dexcom G6 11/27/21 11/27/21 Unknown History Sensor device) blood-glucose transmitter (Dexcom 11/27/21 11/27/21 Unknown History G6 Transmitter device) aspirin 81 mg tablet,delayed 81 mg PO DAILY 11/29/23 03/21/24 Unknown History release insulin lispro 100 unit/mL See Rx Instructions .Route .COMPLEX 11/29/23 03/21/24 Unknown History subcutaneous solution vits no.126-ferrous fum tablet 03/21/24 Unknown History 28 mg iron-folic acid 800 mcg tablet (Classic ) hydroxyzine HCl 25 mg tablet mg 01/03/25 Unknown History sertraline 100 mg tablet mg 01/03/25 Unknown History Allergies Allergy/AdvReac Type Severity Reaction Status Date / Time No Known Allergies Allergy Verified 06/17/23 12:24 Review of Systems Review of Systems: CONSTITUTIONAL: Denies fever, chills, or sweats. EYES: Denies visual changes, redness, or discharge. ENT: Reports left-sided otalgia. Denies rhinorrhea, congestion, sore throat. CARDIOVASCULAR: Denies chest pain, palpitations, or edema. RESPIRATORY: Reports mild cough. Denies dyspnea. GASTROINTESTINAL: Denies abdominal pain, nausea, vomiting, or diarrhea. GENITOURINARY: Denies dysuria or hematuria. SKIN: Denies rash or itching. MUSCULOSKELETAL: Denies back pain, joint pain, or myalgia. NEUROLOGIC: Denies headache, numbness, dizziness, or weakness. PSYCHIATRIC: Denies anxiety or depression. [facility] Past Medical History Medical History Pneumonia COVID-19 2020 GERD (gastroesophageal reflux disease) Type 1 diabetes Surgical History Surgical History History of appendectomy History of History of placement of ear tubes History of tonsillectomy and adenoidectomy Family History Family History Mother Family history non-contributory Social History Social History Tobacco type: e-cigarettes/vaping Alcohol intake: unknown Substance use: unknown Gender identity (if verbalized by the patient): Female Exam Narrative: GENERAL: Well-appearing, well-nourished, and in no acute distress. HEAD: Normocephalic, atraumatic. EYES: PERRLA and EOMI. ENT: Nares clear, no rhinorrhea or epistaxis. Mucous membranes moist. Oropharynx without tonsillar hypertrophy exudate or other lesions. Right TM normal. Left TM erythematous and bulging NECK: Supple. No adenopathy or masses. No carotid bruits or JVD CHEST: Clear to auscultation. No respiratory distress. No wheezes rales or rhonchi HEART: Regular rate and rhythm. No murmur heard. Normal peripheral pulses. ABDOMEN: Soft, nontender, nondistended, normal active bowel sounds. EXTREMITIES: Normal range of motion. No edema. SKIN: Warm, dry, no rash. NEURO: No focal deficits. Alert and oriented x3. PSYCH: Normal mood and affect. Course Course Emergency Course: This is a 29-year-old female who presented for evaluation of left-sided otalgia. She has evidence of otitis media on exam. Will treat with Augmentin. Follow-up with primary provider. Go to the ER for worsening symptoms. Patient in agreement with plan of care. Level of Care: Express Care Visit Vital Signs Vital signs: Vital Signs Temperature 36.8 C 01/03/25 18:31 Pulse Rate 93 01/03/25 18:31 Respiratory Rate 18 01/03/25 18:31 Blood Pressure 123/81 01/03/25 18:31 Pulse Oximetry 98 01/03/25 18:31 Oxygen Delivery Room Air 01/03/25 18:31 Temperature 36.8 C 01/03/25 18:31 Pulse Rate 93 01/03/25 18:31 Respiratory Rate 18 01/03/25 18:31 Blood Pressure 123/81 01/03/25 18:31 Pulse Oximetry 98 01/03/25 18:31 Oxygen Delivery Room Air 01/03/25 18:31 Medical Decision Making Vital Signs Vital Signs: Vital Signs Temperature 36.8 C 01/03/25 18:31 Pulse Rate 93 01/03/25 18:31 Respiratory Rate 18 01/03/25 18:31 Blood Pressure 123/81 01/03/25 18:31 Pulse Oximetry 98 01/03/25 18:31 Oxygen Delivery Room Air 01/03/25 18:31 Temperature 36.8 C 01/03/25 18:31 Pulse Rate 93 01/03/25 18:31 Respiratory Rate 18 01/03/25 18:31 Blood Pressure 123/81 01/03/25 18:31 Pulse Oximetry 98 01/03/25 18:31 Oxygen Delivery Room Air 01/03/25 18:31 Discharge Plan Discharge Clinical Impression: Otitis media Patient Disposition: Home Condition: Stable Instructions: Antibiotic Form, Ear Infection (ED) Patient Language: Albanian Prescriptions: New amoxicillin-pot clavulanate 875-125 mg tablet 1 tablet PO Q12H Qty: 20 0RF No Action albuterol sulfate 90 mcg/actuation HFA aerosol inhaler 2 puff inhalation QID PRN (Reason: shortness of breath or wheezing) Qty: 6.7 0RF Classic 28 mg iron- 800 mcg Tablet aspirin 81 mg tablet,delayed release (DR/EC) 81 mg PO DAILY insulin lispro 100 unit/mL solution See Rx Instructions .ROUTE .COMPLEX Rx Instructions: per pump sertraline 100 mg tablet hydroxyzine HCl 25 mg tablet (DME) OneTouch Verio test strips Strip MISCELLANEOUS (DME) Dexcom G6 Sensor Device MISCELLANEOUS (DME) Dexcom G6 Transmitter Device MISCELLANEOUS Follow-up/Referrals: Ruby,Moody Rios MD [Primary Care Provider] - Stand Alone Forms: Work/School Release IP Time of Disposition: 18:41
== END 2025-01-03 18:48 | disposition home or self-care (01) ==
PROVIDERS: Emergency Provider Nurse Practitioner; PCP Family Medicine
DX: H66.90 Otitis media, unspecified, unspecified ear (principal); Z79.899 Other long term (current) drug therapy; E10.9 Type 1 diabetes mellitus without complications; F17.290 Nicotine dependence, other tobacco product, uncomplicated
CPT/HCPCS: 99213; G0463